=== PATIENT | female | born 1960 | race Caucasian/White ===

== ENCOUNTER → 2021-06-03 | Outpatient (CLI) | payer SELFPAY ==
[~2021-06-03] MED LIST: CYCL10 PO; HYDACE5325 PO; HYDR1TAB94 PO
[2021-06-03 12:54] LABS: BASOPHILS ABSOLUTE AUTO 0.05 K/mm3 (0.00-0.23); BASOPHILS PERCENT AUTO 1 % (0-2); EOSINOPHILS ABSOLUTE AUTO 0.08 K/mm3 (0.00-0.68); EOSINOPHILS PERCENT AUTO 1 % (0-6); Hematocrit 49.4 % (33.0-51.0); Hemoglobin 16.5 g/dL (11.5-16.0); IMMATURE GRAN ABSOLUTE AUTO 0.03 K/mm3 (0.00-0.10); IMMATURE GRAN PERCENT AUTO 0 % (0-1); LYMPHOCYTES ABSOLUTE AUTO 2.34 K/mm3 (0.84-5.20); LYMPHOCYTES PERCENT AUTO 29 % (21-46); MONOCYTES ABSOLUTE AUTO 0.49 K/mm3 (0.16-1.47); MONOCYTES PERCENT AUTO 6 % (4-13); Mean Corpuscular HGB 29.6 pg (26.0-34.0); Mean Corpuscular HGB Conc 33.4 g/dL (31.5-36.5); Mean Corpuscular Volume 89 fL (80-100); Mean Platelet Volume 11.8 fL (9.1-12.4); NEUTROPHILS ABSOLUTE AUTO 5.06 K/mm3 (1.96-9.15); NEUTROPHILS PERCENT AUTO 63 % (41-73); Platelet Count 183 K/mm3 (150-400); RDW Coefficient Variation 12.6 % (11.7-14.2); Red Blood Cell Count 5.58 M/mm3 (3.80-5.20); White Blood Cell Count 8.05 K/mm3 (4.00-11.30)
[2021-06-03 13:19] LABS: Alanine Aminotransfer (ALT/SGP 24 U/L (12-78); Albumin, Blood 2.5 g/dL (3.4-5.0); Albumin/Globulin Ratio 0.7 (0.8-1.8); Alk Phos 130 U/L (40-126); Anion Gap 7 mmol/L (6-16); Aspartate Aminotrans (AST/SGOT 14 U/L (12-37); Bilirubin, Total 0.3 mg/dL (0.1-1.0); Blood Urea Nitrogen 19 mg/dL (8-24); Bun/Creatinine Ratio 27.5 (12.0-20.0); CO2, Blood 29 mmol/L (21-32); Calcium, Blood 8.4 mg/dL (8.5-10.1); Chloride, Blood 102 mmol/L (98-108); Creatinine, Blood 0.69 mg/dL (0.40-1.00); Globulin, Blood 3.4 g/dL (2.2-4.0); Glomerular Filtration Rate >60 (60-); Glucose, Blood 467 mg/dL (70-99); Potassium, Blood 4.4 mmol/L (3.5-5.5); Sodium, Blood 138 mmol/L (136-145); Total Protein, Blood 5.9 g/dL (6.4-8.2)
[2021-06-03 13:24] LABS: International Normalized Ratio 0.91; Prothrombin Time Results 9.6 Sec (9.7-11.5)
== END | disposition home or self-care (01) ==
LOC: LAB SHORT 12:49
PROVIDERS: Physician Assistant
DX: D75.1 Secondary polycythemia (principal); R60.0 Localized edema; E11.9 Type 2 diabetes mellitus without complications
CPT/HCPCS: 80053; 83036; 85025; 85060; 85610

== ENCOUNTER 2021-07-17 12:54 | Emergency (ER) | payer SELFPAY ==
[~2021-07-17] VITALS: Ht 152.4 cm; Wt 81.7 kg
[2021-07-17 13:21] LABS: BASOPHILS ABSOLUTE AUTO 0.04 K/mm3 (0.00-0.23); BASOPHILS PERCENT AUTO 0 % (0-2); EOSINOPHILS ABSOLUTE AUTO 0.02 K/mm3 (0.00-0.68); EOSINOPHILS PERCENT AUTO 0 % (0-6); Hemoglobin 14.1 g/dL (11.5-16.0); IMMATURE GRAN ABSOLUTE AUTO 0.07 K/mm3 (0.00-0.10); IMMATURE GRAN PERCENT AUTO 0 % (0-1); LYMPHOCYTES ABSOLUTE AUTO 2.28 K/mm3 (0.84-5.20); LYMPHOCYTES PERCENT AUTO 14 % (21-46); MONOCYTES ABSOLUTE AUTO 0.83 K/mm3 (0.16-1.47); MONOCYTES PERCENT AUTO 5 % (4-13); Mean Corpuscular HGB 29.7 pg (26.0-34.0); Mean Corpuscular HGB Conc 32.8 g/dL (31.5-36.5); Mean Corpuscular Volume 91 fL (80-100); NEUTROPHILS PERCENT AUTO 80 % (41-73); Platelet Count 219 K/mm3 (150-400); RDW Coefficient Variation 12.7 % (11.7-14.2); RDW Standard Deviation 41.8 fL (35.1-46.3); Red Blood Cell Count 4.75 M/mm3 (3.80-5.20); White Blood Cell Count 16.04 K/mm3 (4.00-11.30)
[2021-07-17 13:29] LABS: Alanine Aminotransfer (ALT/SGP 16 U/L (12-78); Albumin, Blood 2.3 g/dL (3.4-5.0); Albumin/Globulin Ratio 0.5 (0.8-1.8); Alk Phos 129 U/L (50-136); Anion Gap 5 mmol/L (6-16); Aspartate Aminotrans (AST/SGOT 10 U/L (12-37); Bilirubin, Total 0.2 mg/dL (0.1-1.0); Blood Urea Nitrogen 33 mg/dL (8-24); Bun/Creatinine Ratio 44.5 (12.0-20.0); CO2, Blood 25 mmol/L (21-32); Calcium, Blood 9.5 mg/dL (8.5-10.1); Chloride, Blood 107 mmol/L (98-108); Creatinine, Blood 0.74 mg/dL (0.40-1.00); Globulin, Blood 4.2 g/dL (2.2-4.0); Glomerular Filtration Rate >60 (60-); Glucose, Blood 317 mg/dL (70-99); Potassium, Blood 5.1 mmol/L (3.5-5.5); Sodium, Blood 137 mmol/L (136-145); Total Protein, Blood 6.5 g/dL (6.4-8.2)
[2021-07-17 14:20] LABS: Source, Urine Clean Catch
[2021-07-17 14:32] LABS: Bilirubin, Urine Neg (Neg); Blood, Urine 1+ (Neg); Color, Urine Yellow (P-Yellow); Glucose Qualitative, Urine 4+ (Neg); Ketones, Urine Neg (Neg); Leukocyte Esterase, Urine Neg (Neg); Nitrite, Urine Neg (Neg); Protein, Urine 4+ (Neg); Specific Gravity, Urine 1.015 (1.003-1.022); Urobilinogen, Urine NORM (Normal)
[2021-07-17 14:42] LABS: Appearance, Urine Hazy (Clear)
[2021-07-17 14:47] LABS: Bacteria Few /hpf; Hyaline Casts 0-2 /lpf (0-2); Squamous Epithelial Cells Mod /hpf (Few); White Blood Cells, Urine 0-2 /hpf (0-5)
[2021-07-17 15:09] LABS: International Normalized Ratio 0.93; Prothrombin Time Results 9.8 Sec (9.7-11.5)
== END 2021-07-17 16:24 | disposition home or self-care (01) ==
LOC: ER 12:54
PROVIDERS: Emergency Medicine
DX: R41.82 Altered mental status, unspecified (principal); I73.9 Peripheral vascular disease, unspecified; Z91.030 Bee allergy status; Z88.0 Allergy status to penicillin; Z88.5 Allergy status to narcotic agent; Z88.6 Allergy status to analgesic agent
CPT/HCPCS: 70450; 71045; 80053; 81001; 85025; 85610; 85730; 99285-25

== ENCOUNTER 2021-07-25 10:30 | Inpatient (IN) | payer SELFPAY ==
[~2021-07-25] VITALS: Ht 154.9 cm; Wt 79.9 kg
[2021-07-25] MEDS ORDERED: METFORMIN HCL500 M3 PO (12:27)
[2021-07-25 13:02] LABS: BASOPHILS ABSOLUTE AUTO 0.04 K/mm3 (0.00-0.23); BASOPHILS PERCENT AUTO 0 % (0-2); EOSINOPHILS ABSOLUTE AUTO 0.07 K/mm3 (0.00-0.68); EOSINOPHILS PERCENT AUTO 1 % (0-6); Hematocrit 41.5 % (33.0-51.0); Hemoglobin 13.3 g/dL (11.5-16.0); IMMATURE GRAN ABSOLUTE AUTO 0.06 K/mm3 (0.00-0.10); IMMATURE GRAN PERCENT AUTO 1 % (0-1); LYMPHOCYTES ABSOLUTE AUTO 3.25 K/mm3 (0.84-5.20); LYMPHOCYTES PERCENT AUTO 24 % (21-46); MONOCYTES ABSOLUTE AUTO 0.69 K/mm3 (0.16-1.47); MONOCYTES PERCENT AUTO 5 % (4-13); Mean Corpuscular HGB 29.4 pg (26.0-34.0); Mean Corpuscular Volume 92 fL (80-100); Mean Platelet Volume 11.4 fL (9.1-12.4); NEUTROPHILS ABSOLUTE AUTO 9.19 K/mm3 (1.96-9.15); NEUTROPHILS PERCENT AUTO 69 % (41-73); Platelet Count 263 K/mm3 (150-400); RDW Coefficient Variation 12.3 % (11.7-14.2); RDW Standard Deviation 41.1 fL (35.1-46.3); Red Blood Cell Count 4.52 M/mm3 (3.80-5.20)
[2021-07-25 13:18] LABS: Alanine Aminotransfer (ALT/SGP 16 U/L (12-78); Albumin, Blood 2.2 g/dL (3.4-5.0); Albumin/Globulin Ratio 0.4 (0.8-1.8); Alk Phos 143 U/L (50-136); Anion Gap 5 mmol/L (6-16); Aspartate Aminotrans (AST/SGOT 8 U/L (12-37); Bilirubin, Total 0.2 mg/dL (0.1-1.0); Blood Urea Nitrogen 15 mg/dL (8-24); Bun/Creatinine Ratio 37.1 (12.0-20.0); CO2, Blood 25 mmol/L (21-32); Calcium, Blood 8.4 mg/dL (8.5-10.1); Chloride, Blood 108 mmol/L (98-108); Globulin, Blood 4.9 g/dL (2.2-4.0); Glomerular Filtration Rate >60 (60-); Glucose, Blood 183 mg/dL (70-99); Potassium, Blood 4.3 mmol/L (3.5-5.5); Sodium, Blood 138 mmol/L (136-145); Total Protein, Blood 7.1 g/dL (6.4-8.2)
[2021-07-25 13:19] LABS: Anti-Xa UFH, PHA Monitoring <0.10 IU/mL; International Normalized Ratio 0.95
--- NOTE | 2021-07-25 21:42 | NUR ---
Pt admitted from ED around 2029. Heparin gtt restarted per orders. Pt kept NPO. Consult called to Dr. Tesfaye answering service, from Dr. Nieto note, it looks like he had already spoke to him while pt was in ED and noted that Dr. Landon would conult in AM, see note. Information for consult called into Dr. Tesfaye answering service. VSS on RA. Tele: SR 70s. Skin: Left 5th toe is completely black. Left great toe is purple towards the distal end. Top half of foot has patchy purple/reddish coloring. Pt reports pain in top half of foot, especially in the 5th and great toe.
--- NOTE | 2021-07-25 22:20 | NUR ---
Pictures taken of left foot and placed in chart.
--- NOTE | 2021-07-26 00:06 | NUR ---
Pulses in left foot are faint with palpation, but are strong with doppler. Right foot has moderatly strong pulses by palpation.
--- NOTE | 2021-07-26 00:14 | NUR ---
Pt was placed on 2L oxygen due to desaturations into mid-high 80s while sleeping. Pt sustaining 92-94% on 2L. Continuous pulse ox placed.
--- NOTE | 2021-07-26 01:34 | NUR ---
Pt has been having severe 10/10 pain in left 5th toe, prn fentynl given total of 50mcg, pt is sleeping at this time, RR 14 and Oxygen 94% on 2L.
--- NOTE | 2021-07-26 04:25 | NUR ---
Pt in 10/10 pain in left foot, PRN fentynl given and pt fell asleep after dose.
--- NOTE | 2021-07-26 04:36 | NUR ---
Bobbin Winder Tender Note: Pt is A&O, pleasant with care. Anxious and nervous about diagnosis. VSS on RA-2L. Pt was started on 2L overnight due to desaturation. Pt had 10/10 pain with shock/sharp waves through left foot and 5th toe, prn norco and fentanyl given per orders. Fentanyl works well temporarily, but pain seems to come back quickly. [place] doesn't touch pain at all. Dr. Oscar was consulted by Dr. Nieto in ED and I also called the after hours service. NS running 75/mlhr. Heparin gtt running 18unit/kg/hr. Pt has been NPO overnight. CBG checked Q6. Tele: SR 70s. Skin: pictures taken. Left 5th toe is completely black. Great toe is starting to become black at the tip. Scattered splouchy redness on the upper part of left foot.
--- NOTE | 2021-07-26 05:15 | NUR ---
Pt was still in 10/10 pain 45 minutes after fentanyl, Dr. Harry notified. Pain medication order changed to dilaudid 1mg Q2hrs. Pt was able to fall asleep after first dose of dilaudid.
--- NOTE | 2021-07-26 07:20 | NUR ---
INITIAL ASSESSMENT: Patient is awake sitting up in bed. She is alert and oriented. She reports shooting pain from the top of her left foot down her pinky toe, she rates the pain at a 10/10, she is medicated with dilaudid at this time. HRR, SB in the 50s. LS CTA, Biox mid 90s on 2L via NC. BT+. VSS. PPP. Patients Left foot is dusky with her left pinky toe black, the tops of her big toe and the second and third toes are also a dark purple. Pulses to LLE via doppler. Dusky area to left foot traced. Dr. Plasencia is at the bedside. He talked with the patient about smoking cessation. He will follow up and plan an intervention after Dr. Landon has been to see the patient. Pt has Hep GTT infusing at this time. 3,000 unit bolus given and rate increased to 22units/kg/hr. Son in law at bedside. Patient denies other needs at this time. Call light in reach. Will continue to monitor.
--- NOTE | 2021-07-26 09:50 | NUR ---
Update: Dr. Bradford has been to see the patient, see new orders. She was medicated with [place] and Neurontin. She is resting with her eyes closed at this time. Call light in reach, will continue to monitor.
--- NOTE | 2021-07-26 12:30 | NUR ---
Update: Assessment unchanged. VSS. At times patient is yelling out due to pain. Pain has been well controlled with [place] and Dilaudid. She was also given one dose of neurontin-which seemed to help, she was able to rest afterward. Son in law at bedside. Patient denies other needs at this time. Call light in reach, [facility].
--- NOTE | 2021-07-26 13:00 | NUR ---
Update: Kieran Landon's PA has been to see the patient, plan to take the patient to the hoisting laborer, he will call back later with an updated time. Patient denies other needs at this time. Call juan j in kathryn NIKOLAI.
--- NOTE | 2021-07-26 16:35 | NUR ---
Patient is lying in bed and immediately states that she is in pain and is waiting for her next dose of pain medications. Pt's SinL, Javier is bedside and is kind and talks for her when the pain is to difficult for her to talk through the pain. Pt talks about her [employer] ita, the closeness of her family and the plan of care for her blot clots and gangernous toe. I provide prayer and a calming presence. Pt responds well and voices appreciation for the visit. I will continue to remain available to pt and family.
--- NOTE | 2021-07-26 17:50 | NUR ---
SUMMARY: Patient has been alert and oriented x4 T/O my shift. He has been C/O back and abdominal pain-he was medicated with Dilaudid twice this shift and once with [place] wtih good relief. HR has been SR in the 80s-90s for the majority of the shift. He had a brief period around [id number] he went into a-flutter, rate was in the 90s and patient was asymptomatic. His blood pressure was stable for the majority of the shift, he had an episode while standing this afternoon, he was was not responding. Staff promptly had the patient sit back down and SBP was in the 80s, Dr. Villafana was notified. Blood pressure improved after lying back down, he also had a dose of Albumin and Bumex. SBP now in the 130s. LS have been DIM in the bases for the entire shift. The patient started out on 4L O2 via NC and at one point he was up to 11L this afternoon. After sitting on the edge of the bed and doing some deep breathing, this RN was able to titrate his oxygen gradually back down to 8L via Oximizer. BT were active at the beginning of the shift and patient was able to get OOB to the bathroom to have a small loose green BM. However this afternoon his ABD began to become more distended and patient became more uncomfortable. He was assisted to stand and march in place in attempts to help him pass flatus, he was able to belch. He was medicated once for nausea. Dr. Bradford made him NPO this afternoon and stated if the patient began to vomit staff can place an NGT for stomach decompression. Patient has worsening renal function, he has not been ableto void. AM bladder scan was 7cc, bladder scan this evening shows 267, currrently patient is being assisted to the BSC to have BM and void. Pt was medicated with Bumex at the end of the shift. Will follow up with Dr. Guerra. Consult placed for Dr. Landon for permacath placement, pt will likely need dialysis. H/H has been dropping as are his platelets-hep gtt stopped, Dr. Bradford may start the patient on Eliquis tomorrow for the patients history of A-Fib.
--- NOTE | 2021-07-26 18:16 | NUR ---
SUMMARY: Patient has been alert and oriented T/O the shift. HRR, SR in the 70s, she can be so at times down into the 50s while asleep. Blood pressure has been 150s systocially. LS DIM, at times they are coarse-but cleared with cough. She is a 1/2PPD smoker and hasn't smoked since admission. Biox has been above 90% on 2L T/O the shift. BT+. PPP. Left foot is dusky and cool to the touch, she has a marbling discoloration to the top and bottom of her left foot, it has stayed within the markings T/O the shift. The coloring of the foot has darkened slightly. Pulses remain good via doppler. Left pinky toe is black. The patient is starting to have some black discoloration to the top of her big toe and a dark purple to the top of her 2nd and 3rd toes. Dr. Plasencia came to see the patient today, he will make a plan after IR comes to see the patient and perform a revasc on the LLE. IR HEATHER came to see the patient today, pt is NPO after midnight with plans to go to laborer for a revasc in the AM. She has had Hep gtt infusing T/O the shift, with two boluses given and two rate increases. She had C/O 10/10 pain in her left pinky toe-she was medicated with [place] and Dilaudid with good pain relief. Patient is resting comfortably at this time. Will report to oncoming RN.
--- NOTE | 2021-07-26 20:46 | NUR ---
Assumed care 1900. VSS on 2L. Pain in left foot and 5th toe, prn dilaudid given. RR 11-13, watching RR closely. Left 5th toe completely black, the top half of the left foot is red/maroon splotchy. Pt is elevating and repositioning frequently to get more comfortable. New scheduled dose of gabapentin given per orders.
[2021-07-27 04:37] LABS: Hematocrit 39.4 % (33.0-51.0); Hemoglobin 12.2 g/dL (11.5-16.0); Mean Platelet Volume 11.7 fL (9.1-12.4); Platelet Count 226 K/mm3 (150-400)
--- NOTE | 2021-07-27 05:03 | NUR ---
Manager Laundry Note: Pt is A&O, anxious. Pain in left foot/ 5th toe mostly throughout night 10/10 pain with sharp/ shocking like sensation, prn meds given per orders. RR slowed to 10-12, spaced out prn meds a bit more. Pt didn't sleep much throughout night due to pain. VSS on 2-4L. Heparin gtt running, dose was increased and bolus given overnight. Pt has been NPO since midnight for revascularization today. Left foot has weak pulses palpated, but can hear well with doppler. Left 5th toe completely black and tip of great toe has some darker maroon coloring to it. IV abx given per orders.
--- NOTE | 2021-07-27 07:55 | NUR ---
Initial Assessment: Pt getting up to recliner chair. Pt C/O 10/10 pain to the L foot. L foot with purplish discoloration up mid-foot. L 5th toe black in color, L great Toe with tip purple in color. Pulse found with doppler. Pt NPO for revasc procudure scheduled today. LS diminished and coarse in bases. HR reg. BT positive. Pt states that she is passing flatus without issues. Will medicate pt for pain and will continue to monitor.
--- NOTE | 2021-07-27 15:02 | NUR ---
Pt take to [facility] for procedure. Will await return.
--- NOTE | 2021-07-27 16:36 | NUR ---
Update: Pt returned to room after revasc. R groin site with Teg CHG dressing intact. No bleeding, oozing, swelling or hematoma noted. L foot wtih weak palp pulses. R foot with increased warmth. Pt states pain is much improved since procedure. Pt is dozing off and on, requiring 6L per NC. HR shows NSR. Heprin gtt restarted. Stable at this time. Will monitor.
--- NOTE | 2021-07-27 17:57 | NUR ---
SHIFT SUMMARY: Pt laying flat in bed. Requiring frequent reminding to remain flat with R leg straight. BP elevated after return from procedure. Orders obtained. Will follow through. Pt appears more comfortable after procedure and states that her R foot pain has improved slightly. Pulses to L foot palp and discoloration seems to have improved slightly. L 5th toe still black and tip of great toe still purple in color. R groin site with no bleeding, oozing or swelling noted. Heprin gtt running per pharmacy. No other changes at this time. Will monitor and report to night RN.
--- NOTE | 2021-07-27 20:06 | NUR ---
Assumed care 1900. Pt sleeping intermittently. Pt is having a hard time remembering groin site precautions, keep rolling and bending leg. Frequent reminders to lay flat with leg straight. BP elevated, but does not meet prn parameters. Groin site looks good, clean dry and intact with no signs of bleeding. There is an angioseal that was placed during revasc. Left foot has better color today and pulses are felt more easily. Left 5th toe is black and tip of great toe is also black. Will continue to monitor.
--- NOTE | 2021-07-28 04:40 | NUR ---
Cattle Shipper note: Pt is oriented. She would sleep on and off. Mainly moaned when awake in pain. When pt got pain meds she would go to sleep for a few hours. PRN norco and dilaudid given per orders. VSS on 4L, pt desats pretty quickly without oxygen on. Nonproductive cough that pt states she has at baseline. Left foot has weak, but palpated pulses, strong with doppler. Right leg has good pulses. Right groin site has remained free from hematoma and clean dry and intact dressing. Pt had a hard time remembering precautions of laying flat and not bending leg, but luckily no hematoma formed even with pt not following precations well. Left 5th toe is black, tip of great toe is starting to get darker, more of a purple/maroon color. Skin has scratches from pt itching on legs and back.
--- NOTE | 2021-07-28 04:45 | NUR ---
Pt has been NPO since midnight for possible surgical procedure on foot today.
[2021-07-28 05:25] LABS: BASOPHILS ABSOLUTE AUTO 0.02 K/mm3 (0.00-0.23); BASOPHILS PERCENT AUTO 0 % (0-2); EOSINOPHILS ABSOLUTE AUTO 0.02 K/mm3 (0.00-0.68); EOSINOPHILS PERCENT AUTO 0 % (0-6); Hematocrit 35.7 % (33.0-51.0); IMMATURE GRAN ABSOLUTE AUTO 0.04 K/mm3 (0.00-0.10); IMMATURE GRAN PERCENT AUTO 0 % (0-1); LYMPHOCYTES ABSOLUTE AUTO 2.05 K/mm3 (0.84-5.20); LYMPHOCYTES PERCENT AUTO 18 % (21-46); MONOCYTES ABSOLUTE AUTO 0.99 K/mm3 (0.16-1.47); MONOCYTES PERCENT AUTO 9 % (4-13); Mean Corpuscular HGB 28.6 pg (26.0-34.0); Mean Corpuscular HGB Conc 30.8 g/dL (31.5-36.5); Mean Corpuscular Volume 93 fL (80-100); Mean Platelet Volume 11.3 fL (9.1-12.4); NEUTROPHILS ABSOLUTE AUTO 8.36 K/mm3 (1.96-9.15); NEUTROPHILS PERCENT AUTO 73 % (41-73); Platelet Count 218 K/mm3 (150-400); RDW Coefficient Variation 12.2 % (11.7-14.2); RDW Standard Deviation 41.8 fL (35.1-46.3); Red Blood Cell Count 3.85 M/mm3 (3.80-5.20); White Blood Cell Count 11.48 K/mm3 (4.00-11.30)
[2021-07-28 05:57] LABS: Alanine Aminotransfer (ALT/SGP 16 U/L (12-78); Albumin/Globulin Ratio 0.5 (0.8-1.8); Alk Phos 157 U/L (50-136); Anion Gap 6 mmol/L (6-16); Aspartate Aminotrans (AST/SGOT 16 U/L (12-37); Bilirubin, Total 0.4 mg/dL (0.1-1.0); Blood Urea Nitrogen 14 mg/dL (8-24); CO2, Blood 25 mmol/L (21-32); Calcium, Blood 8.2 mg/dL (8.5-10.1); Chloride, Blood 109 mmol/L (98-108); Creatinine, Blood 0.37 mg/dL (0.40-1.00); Globulin, Blood 4.2 g/dL (2.2-4.0); Glomerular Filtration Rate >60 (60-); Glucose, Blood 108 mg/dL (70-99); Phosphorus, Blood 2.7 mg/dL (2.5-4.9); Potassium, Blood 4.1 mmol/L (3.5-5.5); Sodium, Blood 140 mmol/L (136-145); Total Protein, Blood 6.2 g/dL (6.4-8.2)
--- NOTE | 2021-07-28 17:21 | NUR ---
ASSUMED CARE OF PT AT 0700 TODAY. PT STATES HER LEFT FOOT IS VERY PAINFUL T/O THE DAY, PT IS OFTEN OBSERVED BY THIS RN YELLING OUT IN PAIN AND CONTINUALLY MOVING AROUND IN BED. THIS BEHAVIOR APPEARED TO BE WORSE WHEN PT'S FAMILY MEMBERS WERE IN THE ROOM WITH HER. PT MEDICATED W IV/PO PAIN MEDICATION PER MD ORDERS AND WOULD CONTINUE TO EXHIBIT THESE BEHAVIORS, EVEN WHILE SHE APPEARED TO BE FALLING ASLEEP POST PAIN MEDICATION ADMINSITRATION. CASE MANAGEMENT INVOLVED WITH DISCHARGE PLANNING. PT DOES NOT HAVE INSURANCE AND WILL LIKELY NEED HOME HEALTH AND HOME 02. THIS RN DISCUSSED W DR YORK TRANSITIONING PT TO ORAL PAIN CONTROL IN ANTICIPATION OF DISCHARGE TOMORROW. HEPARIN GTT TRANSITIONED TO PO XARELTO TODAY, SAMPLES TO BE SENT HOME WITH PT. NO ACUTE EVENTS, SEE DOCUMENTED ASSESSMENTS AND VS. CALL LIGHT IN REACH AND BED ALARM ON, WILL CONTINUE TO MONITOR AND GIVE REPORT TO ONCOMING SHIFT RN.
--- NOTE | 2021-07-28 21:06 | NUR ---
FALL 2039 - THIS RN WALKING PAST ROOM. BED ALARM SETS OFF. PT FALLS TO KNEES RN ENTERS ROOM. PT ON ALL FOURS UPON ENTERING ROOM. PT LAUGHING. PT STANDS WITHOUT ASSISTANCE AND GETS BACK INTO BED. PT WAS ATTEMPTING TO CHANGE ATTENDS. PT ASSISTED WITH THIS. VITAL SIGNS OBTAINED, NO CHANGES. PT DENIES HITTING ANY OTHER BODY PART EXCEPT HANDS AND KNEES. FULL BODY ASSESMENT COMPLETED, NO CHANGES FROM PREVIOUS ASSESMENT. DR STAPLES CALLED, UPDATED, NO NEW ORDERS. CONTINUE TO MONITOR.
[2021-07-29 04:08] LABS: BASOPHILS ABSOLUTE AUTO 0.01 K/mm3 (0.00-0.23); BASOPHILS PERCENT AUTO 0 % (0-2); EOSINOPHILS ABSOLUTE AUTO 0.06 K/mm3 (0.00-0.68); EOSINOPHILS PERCENT AUTO 1 % (0-6); Hemoglobin 11.2 g/dL (11.5-16.0); IMMATURE GRAN ABSOLUTE AUTO 0.04 K/mm3 (0.00-0.10); IMMATURE GRAN PERCENT AUTO 0 % (0-1); LYMPHOCYTES ABSOLUTE AUTO 2.37 K/mm3 (0.84-5.20); LYMPHOCYTES PERCENT AUTO 22 % (21-46); MONOCYTES ABSOLUTE AUTO 1.43 K/mm3 (0.16-1.47); MONOCYTES PERCENT AUTO 13 % (4-13); Mean Corpuscular HGB 29.6 pg (26.0-34.0); Mean Corpuscular Volume 93 fL (80-100); Mean Platelet Volume 11.6 fL (9.1-12.4); NEUTROPHILS ABSOLUTE AUTO 6.85 K/mm3 (1.96-9.15); NEUTROPHILS PERCENT AUTO 64 % (41-73); Platelet Count 224 K/mm3 (150-400); RDW Coefficient Variation 12.2 % (11.7-14.2); RDW Standard Deviation 41.3 fL (35.1-46.3); Red Blood Cell Count 3.78 M/mm3 (3.80-5.20); White Blood Cell Count 10.76 K/mm3 (4.00-11.30)
--- NOTE | 2021-07-29 05:07 | NUR ---
SHIFT SUMMARY NO ACUTE CHANGES THIS SHIFT. PT AXO. IN SR. HTN AT BEGINNING OF SHIFT BUT WITH PAIN BETTER CONTROLLED, NORMOTENSIVE. PT ON 2LNC, SPO2 >90%. L FOOT DRESSING CDI. PULSES PALPABLE. PAIN OUT OF PROPORTION AT BEGINNING OF ASHIFT, NOW WITHIN. PT HAD FALL THIS SHFIT, SEE NOTD. NO CHANGES POST EVENT. OTHERWISE, PT RESTING OTHERWISE. BED ALARM IN PLACE.
[2021-07-29] MEDS ORDERED: ATOR40TA PO (07:43)
[2021-07-29] MEDS ORDERED: GABA300 PO (07:45)
[2021-07-29] MEDS ORDERED: Nicoderm Cq1 EAC1 TOP (07:59)
[2021-07-29] MEDS ORDERED: CLIN150 PO (08:00)
[2021-07-29] MEDS ORDERED: XARELTO10 M3 PO (08:00)
[2021-07-29] MEDS ORDERED: Plavix75 MG PO (08:00)
--- NOTE | 2021-07-29 10:45 | NUR ---
DISCHARGE TEACHING REVIEWED W PT AND FAMILY MEMEBER INCLUDING FOLLOW UP APPOINTMENTS, MEDICATION LIST AND EDUCATION. PT/FAMILY MEMBER VERBALIZE UNDERSTANDING AND HAVE NO QUESTIONS OR CONCERNS. L FOOT IS WRAPPED IN DRY GAUZE AND OSVALDO WRAP PER ADJUNCT PROFESSOR OF VOICE ORDERS, POST-OP SHOE PLACED. PT/FAMILY MEMBER INSTRUCTED ON WOUND CARE AND S/SX OF INFECTION TO WATCH FOR, THEY VERBALIZE UNDERSTANDING AND HAVE NO QUESTIONS AT THIS TIME. ALL BELONGINS SENT WITH PT INCLUDING SAMPLE XARELTO, EXTRA DRESSING SUPPLIES AND ALL DISCHARGE EDUCATION MATERIAL. PLAN FOR O2 TO BE DELIVERED TO HOME AND HOME HEALTH FOLLOW UP. NO FURTHER NEEDS IDENTIFIED AT THIS TIME.
== END 2021-07-29 11:00 | disposition home or self-care (01) | DRG 253 ==
LOC: ER 10:30 → PCU 21:02
PROVIDERS: Family Medicine; Physician Assistant; ADMIT Internal Medicine
PROC: 047L35Z Dilation of Left Femoral Artery with Two Drug-eluting Intraluminal Devices, Percutaneous Approach (ICD-10-PCS; principal; 2021-07-27)
DX: E11.52 Type 2 diabetes mellitus with diabetic peripheral angiopathy with gangrene (principal); I96 Gangrene, not elsewhere classified; F17.210 Nicotine dependence, cigarettes, uncomplicated; Z71.6 Tobacco abuse counseling; Z85.42 Personal history of malignant neoplasm of other parts of uterus; Z85.3 Personal history of malignant neoplasm of breast; Z88.0 Allergy status to penicillin; Z88.5 Allergy status to narcotic agent; Z91.038 Other insect allergy status; Z88.8 Allergy status to other drugs, medicaments and biological substances; Z79.84 Long term (current) use of oral hypoglycemic drugs
CPT/HCPCS: 36415; 37226; 73620; 75625; 75635; 75716; 75774; 76937; 80053; 82947; 83735; 83880; 84100; 85014; 85018; 85025; 85049; 85520; 85610; 85730; 93306; 93926; 94760; 94762; 96365; 96366; 96375; 96376; 99152; 99153; 99285-25; A9270; C1725; C1760; C1769; C1874; C1887; C1894; C2623; J0690; J1170; J1644; J2250; J2270; J2405; J3010; J7030; J7040; Q9967

== ENCOUNTER 2021-08-23 10:46 | Inpatient (IN) | payer OTHER ==
[~2021-08-23] VITALS: Ht 165.1 cm; Wt 80.1 kg
[~2021-08-23 10:46] MED LIST changes: +ATOR40TA PO; +CLIN150 PO; +GABA300 PO; +METFORMIN HCL500 M3 PO; +Nicoderm Cq1 EAC1 TOP; +Plavix75 MG PO; +XARELTO10 M3 PO
[2021-08-23] MEDS ORDERED: SULFAMETHOXAZO1 EAC1 PO (11:59)
--- NOTE | 2021-08-23 13:12 | NUR ---
PATIENT'S SURGERY CANCELLED TODAY PER DR FALCON, FROM ANESTHESIA DEPARTMENT. TO TO STAY THE NIGHT WITH PLAN FOR SURGERY TOMORROW. NURSING SUPERVIOSR CALLED TO COORDINATE ADMISSION.
--- NOTE | 2021-08-23 13:39 | NUR ---
DR. YORK, HOSPITALIST, AT BEDSIDE IN DAY SURGERY, CONSULTING PATIENT.
--- NOTE | 2021-08-23 14:10 | NUR ---
PATIENT TRANSFERED TO SURGICAL FOOR VIA GURNEY. PATIENT WAS IN DAY SURGERY FROM [id number] TODAY. REPORT GIVEN TO AURORA GHOTRA RN.
[2021-08-23 14:20] LABS: BASOPHILS ABSOLUTE AUTO 0.05 K/mm3 (0.00-0.23); BASOPHILS PERCENT AUTO 1 % (0-2); EOSINOPHILS ABSOLUTE AUTO 0.09 K/mm3 (0.00-0.68); EOSINOPHILS PERCENT AUTO 1 % (0-6); Hematocrit 42.7 % (33.0-51.0); Hemoglobin 13.8 g/dL (11.5-16.0); IMMATURE GRAN ABSOLUTE AUTO 0.04 K/mm3 (0.00-0.10); IMMATURE GRAN PERCENT AUTO 0 % (0-1); LYMPHOCYTES ABSOLUTE AUTO 3.02 K/mm3 (0.84-5.20); LYMPHOCYTES PERCENT AUTO 31 % (21-46); MONOCYTES ABSOLUTE AUTO 0.63 K/mm3 (0.16-1.47); MONOCYTES PERCENT AUTO 6 % (4-13); Mean Corpuscular HGB 28.8 pg (26.0-34.0); Mean Corpuscular HGB Conc 32.3 g/dL (31.5-36.5); Mean Corpuscular Volume 89 fL (80-100); Mean Platelet Volume 11.3 fL (9.1-12.4); NEUTROPHILS ABSOLUTE AUTO 6.01 K/mm3 (1.96-9.15); NEUTROPHILS PERCENT AUTO 61 % (41-73); Platelet Count 236 K/mm3 (150-400); RDW Coefficient Variation 12.4 % (11.7-14.2); RDW Standard Deviation 41.3 fL (35.1-46.3); Red Blood Cell Count 4.79 M/mm3 (3.80-5.20); White Blood Cell Count 9.84 K/mm3 (4.00-11.30)
[2021-08-23 14:45] LABS: Albumin, Blood 2.3 g/dL (3.4-5.0); Anion Gap 6 mmol/L (6-16); Blood Urea Nitrogen 12 mg/dL (8-24); Bun/Creatinine Ratio 28.6 (12.0-20.0); CO2, Blood 26 mmol/L (21-32); Chloride, Blood 107 mmol/L (98-108); Creatinine, Blood 0.42 mg/dL (0.40-1.00); Glomerular Filtration Rate 111 (60-); Glucose, Blood 312 mg/dL (70-99); Magnesium, Blood 1.9 mg/dL (1.6-2.4); Phosphorus, Blood 3.6 mg/dL (2.5-4.9); Potassium, Blood 4.1 mmol/L (3.5-5.5); Sodium, Blood 139 mmol/L (136-145)
--- NOTE | 2021-08-23 15:47 | NUR ---
SHIFT SUMMARY/NOTE: PATIENT CAME BACK FROM PACU TODAY 08/23/21 AT 1400. SURGERY IS BEING POSTPONED TO TOMORROW DUE TO HIGH BLOOD SUGAR. PATIENT IS A&OX4. VS ARE WNL AND IS ON RA BUT WILL NEED TO BE ON 2L NC OF OXYGEN FOR BEDTIME SINCE PATIENT REPORTS THAT IS "WHAT I DO AT HOME". PATIENT REFUSES THE NEED FOR PAIN MEDICATIONS AT THIS TIME. LEFT FOOT HAS OSVALDO WRAP AND GAUZE THAT ARE C/D/I. PATIENT IS INDEP. IN THE ROOM. WHEN AMBULATING IN ROOM PATIENT PUTS ON SURGICAL SHOE FOR THE LEFT FOOT AND WEARS NON-SLIP SOCK ON THE OTHER. SHE IS TOLERATING PO INTAKE AND IS VOIDING. CALL LIGHT WITHIN REACH. PATIENT IS LAYING IN BED WATCHING TV. THE PLAN IS TO HAVE SURGERY FOR A TRANSMETATARSAL AMPUTATION WITH DR. PAGE IN THE MORNING. NPO AT MIDNIGHT TONIGHT.
--- NOTE | 2021-08-24 03:49 | NUR ---
PT MADE NPO AT 0000, 08/24
--- NOTE | 2021-08-24 06:08 | NUR ---
PT A&OX4, VSS, PATIENT EMOTIONALLY LABILE BETWEEN CRYING/ANGRY RELATED TO DELAY IN TREATMENT, AND EUPHORIC DURING CONVERSATION AND CARE. PATIENT REPORTED ADEQUATE PAIN CONTROL WITH PO PAIN MEDS PER EMAR, PATIENT AMBULATES TO BATHROOM WITH 1 PERSON ASSIST, REPORTS NORMAL VOIDING PATTERN, NPO AT 0000, 08/24. PATIENT HAS OSVALDO BANDAGE TO LEFT FOOT, WEARS BOOT FROM HOME FOR AMBULATION. REPORTS SLEEPING DURING THE NIGHT, CURRENTLY RESTING IN BED W/ CALL LIGHT IN REACH, WILL MONITOR UNTIL REPORT GIVEN TO ONCOMING SHIFT.
--- NOTE | 2021-08-24 08:26 | NUR ---
SPOKE WITH DR. YORK REGARDING MEDICATIONS. OK TO GIVE FULL 5 UNITS OF GLARGINE, METFORMIN AND HUMALOG PER MEDIUM SLIDING SCALE. DR. YORK IS AWARE PT IS NPO.
--- NOTE | 2021-08-24 12:45 | NUR ---
CONTACTED DR. YORK VIA SPEAKER PHONE WITH Sharon TONG. DISCUSSED PT'S HIGH LEVEL OF PAIN AND ORDERED PO AND IV PAIN MEDS. PT'S PAIN WAS WELL MANAGED WITH THE MEDICATIONS. ALSO DISCUSSED PT'S RECENT BLOOD GLUCOSE AND GAVE THE 2 UNITS OF INSULIN ORDERED, FOR THE BLOOD GLUCOSE READING OF 154.
--- NOTE | 2021-08-24 13:10 | NUR ---
PT TAKEN TO DAY SURGERY NOW BY CARTER FUNES RN. PT WAS GIVEN PRE-OP BATH, MOUTH WASH AND NASAL SWABS PRIOR TO SURGERY. PT WAS A&OX4 AND STATED SHE WAS READY FOR SURGERY.
[2021-08-24 13:13] LABS: Influenza A, PCR NEGATIVE (NEGATIVE); Influenza B, PCR NEGATIVE (NEGATIVE); Resp Syncytial Virus, PCR NEGATIVE (NEGATIVE); SARS-Cov-2 (COVID-19) PCR, MMC NEGATIVE (NEGATIVE)
--- NOTE | 2021-08-24 14:42 | NUR ---
REPORT GIVEN TO MARY GUAN RN.
--- NOTE | 2021-08-24 15:29 | NUR ---
08/24/21 1529 Robbie Hunt PT [facility] PRIOR TO ARRIVAL TO OR.
--- NOTE | 2021-08-24 18:57 | NUR ---
PT ARRIVED ON SURGICAL FLOOR FROM PACU AT 1715. PT HAD A L FOOT TRANSMETATARSAL AMPUTATION. PT IS IN TERRIBLE PAIN, MOANING AND WRITHING. PAIN MEDICATIONS HAVE BEEN GIVEN BY Sharon TONG WITH LITTLE RELIEF. PT HAS WOUND VAC IN PLACE THAT IS MAINTAING SUCTION. NO DRAINAGE HAS BEEN NOTED. PT HAS 3L OXYGEN VIA NC IN PLACE. VSS.
--- NOTE | 2021-08-24 19:11 | NUR ---
SHIFT SUMMARY PT IS POD#0 FOR L TRANSMETATARSAL AMPUTATION. PT HAS BEEN IN SEVERE PAIN SINCE ARRIVING ON THE FLOOR. Sharon TONG HAS ADMINISTERED PAIN MEDIATIONS WITH LITTLE RELEIF AND DOCTOR HAS BEEN CONTACTED. PT HAS WOUND VAC IN PLACE MAINTAINING SUCTION. NO DRAINAGE NOTED. PT IS ON 3L NC. L LEG IS ELEVATED ON TWO PILLOWS AND PT STATED IT HELPED RELIEVE SOME PAIN. VSS. WILL CONTINUE TO MONITOR.
--- NOTE | 2021-08-24 19:38 | NUR ---
ASSESSED PT WHEN SHE ARRIVED BACK ON SURGICAL FLOOR. PT'S LUNGS SOUNDS ARE CLEAR. RESPIRATIONS ARE EVEN AND UNLABORED. L FOOT DRESSING REAMINS C/D/I AND WOUND VAC IS MAINTAING SUCTION. DILAUDID PAIN MEDIATION GIVEN AND PT IS NOW RESTING COMFORTABLY. VSS.
--- NOTE | 2021-08-24 19:51 | NUR ---
SHIFT SUMMARY PT IS POD#1 FROM TRANSMETATARSAL AMPUTATION WITH DR. RAMOS. SHE ARRIVED BACK TO THE UNIT AT APPROXMATELY 1715. UPON ARRIVING TO THE ROOM PT REPORTED ELEVATED PAIN. SHE WAS CRYING OUT AND RESTLESS IN BED. ONLY PO PAIN MEDICATION AVALIABLE, DR. DUMONT CONTACTED FOR IV PAIN MEDICATION AFTER PT WAS ASSESSED. MORPHINE AND NORCO GIVEN, THEY WERE NOT EFFECTIVE. DR. DUMONT NOTIFIED OF CONTINUED ELEVATED PAIN, DILAUDID WAS GIVEN AND IMPROVED PAIN LEVEL. PT HAS A WOUND VAC IN PLACE TO HER L FOOT. PT TOLERATING CLEAR LIQUIDS. REPORT GIVEN TO SHOLA RITCHIE.
--- NOTE | 2021-08-25 04:41 | NUR ---
SHIFT SUMMARY PAIN MANAGEMENT IMPROVED T/O SHIFT. 0.5 MG IV DILAUDID + 1 NORCO FOR PAIN. LEFT FOOT ELEVATED ON PILLOWS. WOUND VAC REMAINS INTACT WITH SCANT SS DRAINAGE NOTED. PT HAS GOOD BED MOBILITY. IVF INFUSING PER ORDERS. ON 2L O2 VIA NC WHILE SLEEPING WITH CONT BIOX IN PLACE. CALL LIGHT WITHIN REACH.
[2021-08-25 05:16] LABS: BASOPHILS ABSOLUTE AUTO 0.02 K/mm3 (0.00-0.23); BASOPHILS PERCENT AUTO 0 % (0-2); EOSINOPHILS PERCENT AUTO 0 % (0-6); Hematocrit 37.8 % (33.0-51.0); Hemoglobin 12.1 g/dL (11.5-16.0); IMMATURE GRAN ABSOLUTE AUTO 0.03 K/mm3 (0.00-0.10); IMMATURE GRAN PERCENT AUTO 0 % (0-1); LYMPHOCYTES ABSOLUTE AUTO 1.84 K/mm3 (0.84-5.20); LYMPHOCYTES PERCENT AUTO 20 % (21-46); MONOCYTES ABSOLUTE AUTO 0.48 K/mm3 (0.16-1.47); MONOCYTES PERCENT AUTO 5 % (4-13); Mean Corpuscular HGB 28.7 pg (26.0-34.0); Mean Corpuscular Volume 90 fL (80-100); Mean Platelet Volume 11.8 fL (9.1-12.4); NEUTROPHILS ABSOLUTE AUTO 7.06 K/mm3 (1.96-9.15); NEUTROPHILS PERCENT AUTO 75 % (41-73); Platelet Count 207 K/mm3 (150-400); RDW Coefficient Variation 12.3 % (11.7-14.2); RDW Standard Deviation 40.4 fL (35.1-46.3); Red Blood Cell Count 4.21 M/mm3 (3.80-5.20); White Blood Cell Count 9.43 K/mm3 (4.00-11.30)
--- NOTE | 2021-08-25 12:28 | NUR ---
Pt. is reclined in bed and welcomes my visit. Pt. is a woman of ita and verbalizes her confidence in God. Explored issues of ita and belief and the pt. verbalized some experiences that have distanced her from the organized faith. Through empathetic listening the Pt. displays evidence of confidence and trust. Establish rapport and facilitate a life review. Prayed for Pt. Pt. verbalizes gratitude for the spiritual care visit.
--- NOTE | 2021-08-25 19:20 | NUR ---
SHIFT SUMMARY POD1 L TMA, A/OX4, VSS, TOLERATING PO, PAIN MANAGED THOUGH INCREAS IN PAIN NOTED AFTER WORKING WITH PHYSICAL THERAPY. NO ACUTE EVENTS THIS SHIFT, CALL [facility] IN REACH, REPORT GIVEN TO SHOLA RITCHIE.
[2021-08-26 01:23] LABS: Vancomycin, Trough 13.4 ug/mL (5.0-10.0)
--- NOTE | 2021-08-26 04:26 | NUR ---
SUMMARY PT SLEPT ON AND OFF T/O THE NIGHT. MEDICATED FOR PAIN PER EMAR WITH GOOD RESULTS THE PATIENT WAS ABLE TO SLEEP AFTER PAIN SUBSIDED. PT AMBULATED TO [place] [facility] [place] 1 PERSON ASSIST W/FWW. WOUND VAC IN PLACE WITH FOAM COMPRESSED, NO LEAKS NOTED. PT REPORTED RELIEF AFTER EPISODE OF EMESIS AT THE BEGINNING OF SHIFT. PT CURRENTLY SLEEPING, IN NO CURRENT DISTRESS, CALL LIGHT IN REACH.
[2021-08-26 10:56] LABS: Creatinine, Blood 0.57 mg/dL (0.40-1.00)
--- NOTE | 2021-08-26 17:59 | NUR ---
SHIFT SUMMARY PT REFUSED TO WORK W/ OT DURING THIS SHIFT, STATING THAT SHE WAS TOO TIRED. PT RESTED IN ROOM T/O THE DURATION OF THE SHIFT. PT ABLE TO TRANSFER HERSELF TO COMMODE W/O ASSISTANCE IF COMMODE AND WALKER ARE AT BEDSIDE. PT MEDICATED PER EMAR. PT TOLERATING DIET WELL. PT CONTINUES TO REST IN HER ROOM AT THIS TIME. WILL CONTINUE TO MONITOR AND UPDATE NECESSARY.
--- NOTE | 2021-08-27 04:38 | NUR ---
SUMMARY PT SLEPT WELL T/O THE NIGHT. PT MEDICATED FOR PAIN PER EMAR RESULTING IN THE PATIENT FALLING ASLEEP. NO ACUTE EVENTS NOTED. WOUND VAC REMAINS COMPRESSED, MINIMAL SS OUTPUT NOTED. PT REMAINED ON 1L OF O2 VIA NC WHILE SLEEPING TO KEEP SATURATIONS ABOVE 90%. PT CURRENTLY RESTING IN BED WITH RLE ELEVATED, CALL LIGHT IN REACH.
--- NOTE | 2021-08-27 10:36 | NUR ---
Pt. is awake in bed, and welcomes my visit. Family is present at bedside. Pt. is awaiting clearance for discharge, and is unsettled by the need to be able to have wound vac at home. Pt. verbalized that she had been unable to do PT the previous day because of receiving medicine that would allow her to sleep. Pt. is a woman of ita. Pt. displays evidence of wanting to be able to return home. [employer] building affirmed that she has a good support system. Prayed with Pt. and family. Pt. and family verbalized gratitude for the spiritual care visit.
--- NOTE | 2021-08-27 19:22 | NUR ---
SHIFT SUMMARY POD3 LLE TMA, A/OX 4, VSS, TOLERATING PO, SBA TO COMMODE, PAIN MANAGED PER EMAR, WOUND VAC IN PLACE WHICH WAS CHANGED TODAY, ORDERS TO CHANGE IT M/W/F PUT IN TODAY PER SURGEON. SMALL LEAK AFTER WV CHANGE NOTED WHICH WAS CLEANED AND REINFORCED. NO ACUTE EVENTS THIS SHIFT. CALL LIGHT IN REACH, REPORT GIVEN TO SHOLA RITCHIE.
[2021-08-28 01:23] LABS: BASOPHILS ABSOLUTE AUTO 0.04 K/mm3 (0.00-0.23); BASOPHILS PERCENT AUTO 1 % (0-2); EOSINOPHILS ABSOLUTE AUTO 0.29 K/mm3 (0.00-0.68); EOSINOPHILS PERCENT AUTO 3 % (0-6); Hematocrit 34.4 % (33.0-51.0); Hemoglobin 11.3 g/dL (11.5-16.0); IMMATURE GRAN ABSOLUTE AUTO 0.02 K/mm3 (0.00-0.10); IMMATURE GRAN PERCENT AUTO 0 % (0-1); LYMPHOCYTES ABSOLUTE AUTO 3.07 K/mm3 (0.84-5.20); LYMPHOCYTES PERCENT AUTO 36 % (21-46); MONOCYTES ABSOLUTE AUTO 0.74 K/mm3 (0.16-1.47); MONOCYTES PERCENT AUTO 9 % (4-13); Mean Corpuscular HGB Conc 32.8 g/dL (31.5-36.5); Mean Corpuscular Volume 88 fL (80-100); Mean Platelet Volume 11.2 fL (9.1-12.4); NEUTROPHILS ABSOLUTE AUTO 4.34 K/mm3 (1.96-9.15); NEUTROPHILS PERCENT AUTO 51 % (41-73); Platelet Count 191 K/mm3 (150-400); RDW Coefficient Variation 12.5 % (11.7-14.2); RDW Standard Deviation 40.2 fL (35.1-46.3); Red Blood Cell Count 3.89 M/mm3 (3.80-5.20)
[2021-08-28 01:40] LABS: Vancomycin, Trough 16.9 ug/mL (5.0-10.0)
[2021-08-28 01:42] LABS: Albumin, Blood 2.2 g/dL (3.4-5.0); Albumin/Globulin Ratio 0.6 (0.8-1.8); Bilirubin, Total 0.2 mg/dL (0.1-1.0); Bun/Creatinine Ratio 32.5 (12.0-20.0); Calcium, Blood 9.1 mg/dL (8.5-10.1); Creatinine, Blood 0.58 mg/dL (0.40-1.00); Globulin, Blood 3.7 g/dL (2.2-4.0); Potassium, Blood 4.8 mmol/L (3.5-5.5); Total Protein, Blood 5.9 g/dL (6.4-8.2)
--- NOTE | 2021-08-28 10:32 | NUR ---
ROUNDED ON PT AND SHE IS RESTING. EVEN UNLABORED RESPIRATIONS NOTED. CALL LIGHT IS WITHIN REACH.
--- NOTE | 2021-08-28 17:50 | NUR ---
SHIFT SUMMARY PT IS POD#4 FOR L TRANSMETARSAL AMPUTATION. PT IS A&OX4 AND PLEASANT. PT'S PAIN HAS BEEN ELEVATED THROUGHT THE DAY (8 OR HIGHER ON PAIN SCALE) BUT PT STATES SHE HAS A HIGH PAIN TOLERANCE. PT USUALLY REQUESTS PAIN MEDS WHEN HER PAIN IS A 10 OR SHE DESCRIBES IT SHOOTING PAIN. PT IS ABLE TO STAND AND PIVOT TO BEDSIDE COMMODE WITH MINIMAL ASSISTANCE. PT HAS WOUND VAC IN PLACE ON L FOOT AND DRESSING IS REINFORCED BUT MAINTAING SUCTION. MINIMAL SEROSANGUINEOUS DRAINAGE IN WOUND VAC CANISTER. PT IS RESTING COMFORTABLY AND EATING DINNER AT THIS TIME.
--- NOTE | 2021-08-29 05:53 | NUR ---
SUMMARY GAVE PT TORADOL AND DILAUDID THIS AM WITH REPORTS OF 0 PAIN AT THIS TIME.
[2021-08-29 13:27] LABS: Vancomycin, Trough 19.9 ug/mL (5.0-10.0)
--- NOTE | 2021-08-29 16:01 | NUR ---
PT REPORTS PAIN HAS IMPROVED TO 7/10 AFTER RECEIVING IBUPROFEN PER ORDERS.
--- NOTE | 2021-08-29 18:10 | NUR ---
SUMMARY NO ACUTE CHANGES T/O SHIFT. PT REPORTS PAIN TOLERABLE WHEN RATING 9/10. WHEN PT RATES AT 10, FEELS NEED FOR PAIN MEDICATION. MEDICATED PT FOR PAIN PER ORDERS. COVERED PT'S CBGS AND ADMINISTERED ABX PER ORDERS. PT INDEPDENT TO BSC AND REPOSITIONING IN BED. CALL LIGHT IN REACH.
--- NOTE | 2021-08-29 21:15 | NUR ---
REPORT GIVEN TO Patricia HAYNES RN TO ASSUME CARE. PT APPEARS TO BE SLEEPING IN BED, RESP E/U, NO DISTRESS NOTED.
[2021-08-30 04:10] LABS: Bun/Creatinine Ratio 40.6 (12.0-20.0); Calcium, Blood 8.9 mg/dL (8.5-10.1); Creatinine, Blood 0.67 mg/dL (0.40-1.00); Potassium, Blood 4.9 mmol/L (3.5-5.5)
--- NOTE | 2021-08-30 05:01 | NUR ---
SHIFT SUMMARY A/O X4. POD6 R TMA- WOUND VAC IN PLACE. PT IND TO BSC, VOIDING WELL. PAIN MANAGED W/ PO AND IV PAIN MEDICATIONS PER EMAR. TOLERATING PO INTAKE, NO N/V REPORTED. VITAL SIGNS STABLE. NO ACUTE CHANGES THROUGHOUT SHIFT. WILL CONTINUE TO MONITOR AND REPORT TO ONCOMING RN.
--- NOTE | 2021-08-30 18:47 | NUR ---
SHIFT SUMMARY POD6 L TMA, A/OX4, VSS, TOLERATING PO, INDEPENDENT TO BSC, PAIN MANAGED PER EMAR, WOUND VAC CHANGED TODAY PER SURGEON ORDER, SOME SCANT BLEEDING FROM SURGICAL SITE EDGES. NO ACUTE EVENTS THIS SHIFT, CALL LIGHT IN REACH, WILL CTM AND REPORT TO ONCOMING NOC RN.
--- NOTE | 2021-08-30 23:09 | NUR ---
AGREE WITH LIFT TRUCK OPERATOR SHIFT ASSESSMENT DOCUMENTATION.
[2021-08-31 04:11] LABS: Bun/Creatinine Ratio 34.5 (12.0-20.0); Calcium, Blood 8.6 mg/dL (8.5-10.1); Creatinine, Blood 0.84 mg/dL (0.40-1.00); Potassium, Blood 4.9 mmol/L (3.5-5.5)
--- NOTE | 2021-08-31 04:21 | NUR ---
SHIFT SUMMARY, PT POD6 FOR L TMA, WITH WOUNDVAC PLACEMENT. PT TOLERATING PO INTAKE, DENIES N/V. WOUNDVAC SEAL AND SUCTION IS INTACT, SMALL AMOUNT OF SEROSANGUINOUS FLUID DRAINING. LLE ELEVATED ON PILLOW THROUGHOUT SHIFT. PAIN MANAGED PER EMAR, REQUIRE IV PAIN MED FOR BREAKTHROUGH PAIN X1. SLEPT FOR SEVERAL HOURS, REPORTS GOOD PAIN MANAGEMENT THIS AM. IV L FOREARM DC'D FOR LEAKING, 20G STARTED IN R AC. RUNNING AT TKO. PT UP TO BSC INDEP. VOIDING, PASSING GAS WELL. AWAITING DISCHARGE PLANNING FOR HOME WOUNDVAC APPROVAL. VSS, WILL REPORT TO ÓSCAR RN.
[2021-08-31 13:49] LABS: Vancomycin, Trough 27.2 ug/mL (5.0-10.0)
[2021-08-31] MEDS ORDERED: IBUP400 PO (17:21)
[2021-08-31] MEDS ORDERED: HYDR1TAB94 PO (17:21)
[2021-08-31] MEDS ORDERED: INSULANPEN SC (17:22)
[2021-08-31] MEDS ORDERED: MIRALAX17 GM PO (17:23)
[2021-08-31] MEDS ORDERED: Prinivil10 MG PO (17:23)
[2021-08-31] MEDS ORDERED: SULTRIDS PO (17:24)
--- NOTE | 2021-08-31 18:24 | NUR ---
DISCHARGE SUMMARY POD6 L TMA, A/OX 4, VSS, TOLERATING PO, PAIN MANAGED PER EMAR. DISCUSSED DISCHARGE INFORMATION WITH THE PATIENT INCLUDING HOME CARE, WOUND VAC USE, FOLLOW UP APPOINTMENTS (WOUND CLINIC AND SURGEON), MEDICATIONS, AND CONTACT INFORMATION SHOULD QUESTIONS/CONCERNS COME UP AFTER DISCHARGE. WOUND VAC CHANGED OVER WITH MINIMAL DRAINAGE NOTED IN HOSPITAL CANISTER. IV ACCESS REMOVED AND NO OTHER DEVICES INPLACE. PT ESCORTED OUT VIA WC TO PRIVATE AUTO WITHOUT INCIDENT TO GO HOME WITH ALL PERSONAL POSSESSIONS.
== END 2021-08-31 18:10 | disposition home or self-care (01) | DRG 240 ==
LOC: SURS 10:46 → PRE IP 13:30 → SURS 13:54
PROVIDERS: Family Medicine; Hospitalist; Pharmacist; ADMIT Orthopaedic Surgery
PROC: 0Y6N0ZB Detachment at Left Foot, Partial 2nd Ray, Open Approach (ICD-10-PCS; 2021-08-24)
PROC: 0Y6N0ZC Detachment at Left Foot, Partial 3rd Ray, Open Approach (ICD-10-PCS; 2021-08-24)
PROC: 0Y6N0ZD Detachment at Left Foot, Partial 4th Ray, Open Approach (ICD-10-PCS; 2021-08-24)
PROC: 0Y6N0ZF Detachment at Left Foot, Partial 5th Ray, Open Approach (ICD-10-PCS; 2021-08-24)
PROC: 0Y6N0Z9 Detachment at Left Foot, Partial 1st Ray, Open Approach (ICD-10-PCS; principal; 2021-08-24 13:30)
DX: E11.52 Type 2 diabetes mellitus with diabetic peripheral angiopathy with gangrene (principal); I70.262 Atherosclerosis of native arteries of extremities with gangrene, left leg; Z20.822 Contact with and (suspected) exposure to COVID-19; L97.529 Non-pressure chronic ulcer of other part of left foot with unspecified severity; I70.245 Atherosclerosis of native arteries of left leg with ulceration of other part of foot; E11.42 Type 2 diabetes mellitus with diabetic polyneuropathy; D64.9 Anemia, unspecified; J44.9 Chronic obstructive pulmonary disease, unspecified; I10 Essential (primary) hypertension; E78.5 Hyperlipidemia, unspecified; E11.621 Type 2 diabetes mellitus with foot ulcer; G89.29 Other chronic pain; E66.9 Obesity, unspecified; Z86.16 Personal history of COVID-19; Z68.34 Body mass index [BMI] 34.0-34.9, adult; Z79.02 Long term (current) use of antithrombotics/antiplatelets; Z79.84 Long term (current) use of oral hypoglycemic drugs; Z79.899 Other long term (current) drug therapy; Z88.8 Allergy status to other drugs, medicaments and biological substances; Z88.0 Allergy status to penicillin; Z88.5 Allergy status to narcotic agent; Z91.030 Bee allergy status; Z88.6 Allergy status to analgesic agent; Z85.3 Personal history of malignant neoplasm of breast; Z86.718 Personal history of other venous thrombosis and embolism; Z90.49 Acquired absence of other specified parts of digestive tract; Z90.89 Acquired absence of other organs; Z98.890 Other specified postprocedural states; Z87.891 Personal history of nicotine dependence; Z79.01 Long term (current) use of anticoagulants
CPT/HCPCS: 0241U; 36415; 80048; 80053; 80069; 80202; 82565; 82947; 83735; 85025; 88307; 88311; 94762; 97110; 97162; 97165; 97530; 97535; A9270; C9113; J1100; J1170; J1644; J1650; J1815; J1885; J2270; J2370; J2405; J2704; J3010; J3370; J7030; J7040; J7060; J7120

== ENCOUNTER 2021-09-03 09:38 | Day surgery (SDC) | payer OTHER ==
[~2021-09-03 09:38] MED LIST changes: +IBUP400 PO; +INSULANPEN SC; +MIRALAX17 GM PO; +Prinivil10 MG PO; +SULFAMETHOXAZO1 EAC1 PO; +SULTRIDS PO
== END 2021-09-03 23:14 | disposition home or self-care (01) ==
LOC: WOUND 09:38
DX: T87.89 Other complications of amputation stump (principal); E11.621 Type 2 diabetes mellitus with foot ulcer; L97.522 Non-pressure chronic ulcer of other part of left foot with fat layer exposed; E11.59 Type 2 diabetes mellitus with other circulatory complications; E11.40 Type 2 diabetes mellitus with diabetic neuropathy, unspecified; Z88.5 Allergy status to narcotic agent; Z88.0 Allergy status to penicillin; Z88.6 Allergy status to analgesic agent; Z91.038 Other insect allergy status
CPT/HCPCS: A9270

== ENCOUNTER 2021-09-10 08:00 | Day surgery (SDC) | payer SELFPAY | END 2021-09-10 23:59 | disposition home or self-care (01) | LOC: WOUND 08:00 | DX: E11.621 Type 2 diabetes mellitus with foot ulcer (principal); L97.522 Non-pressure chronic ulcer of other part of left foot with fat layer exposed; T87.89 Other complications of amputation stump; E11.59 Type 2 diabetes mellitus with other circulatory complications | CPT/HCPCS: A9270 ==

== ENCOUNTER 2021-09-13 00:22 | Day surgery (SDC) | payer SELFPAY | END 2021-09-13 23:29 | disposition home or self-care (01) | LOC: WOUND 00:22 | DX: E11.621 Type 2 diabetes mellitus with foot ulcer (principal); E11.59 Type 2 diabetes mellitus with other circulatory complications; T87.89 Other complications of amputation stump ==

== ENCOUNTER 2021-09-17 01:34 | Day surgery (SDC) | payer SELFPAY | END 2021-09-17 22:54 | disposition home or self-care (01) | LOC: WOUND 01:34 | DX: E11.621 Type 2 diabetes mellitus with foot ulcer (principal); L97.522 Non-pressure chronic ulcer of other part of left foot with fat layer exposed; E11.59 Type 2 diabetes mellitus with other circulatory complications; T87.89 Other complications of amputation stump | CPT/HCPCS: A9270; G0463 ==

== ENCOUNTER 2021-09-20 09:22 | Day surgery (SDC) | payer SELFPAY | END 2021-09-20 23:52 | disposition home or self-care (01) | LOC: WOUND 09:22 | DX: E11.621 Type 2 diabetes mellitus with foot ulcer (principal); E11.59 Type 2 diabetes mellitus with other circulatory complications; T87.89 Other complications of amputation stump; L97.509 Non-pressure chronic ulcer of other part of unspecified foot with unspecified severity ==

== ENCOUNTER 2021-09-22 00:53 | Day surgery (SDC) | payer SELFPAY | END 2021-09-22 22:41 | disposition home or self-care (01) | LOC: WOUND 00:53 | DX: Z48.01 Encounter for change or removal of surgical wound dressing (principal); E11.621 Type 2 diabetes mellitus with foot ulcer; L97.909 Non-pressure chronic ulcer of unspecified part of unspecified lower leg with unspecified severity; Z89.432 Acquired absence of left foot ==

== ENCOUNTER 2021-09-24 01:38 | Day surgery (SDC) | payer SELFPAY | END 2021-09-24 22:45 | disposition home or self-care (01) | LOC: WOUND 01:38 | DX: E11.621 Type 2 diabetes mellitus with foot ulcer (principal); L97.522 Non-pressure chronic ulcer of other part of left foot with fat layer exposed; R77.0 Abnormality of albumin; T87.89 Other complications of amputation stump; E11.59 Type 2 diabetes mellitus with other circulatory complications | CPT/HCPCS: 73630; A9270; G0463 ==

== ENCOUNTER 2021-09-27 02:56 | Day surgery (SDC) | payer SELFPAY | END 2021-09-27 23:06 | disposition home or self-care (01) | LOC: WOUND 02:56 | DX: T87.89 Other complications of amputation stump (principal); L97.522 Non-pressure chronic ulcer of other part of left foot with fat layer exposed; M79.672 Pain in left foot; R77.0 Abnormality of albumin | CPT/HCPCS: A9270; G0463 ==

== ENCOUNTER 2021-09-29 01:56 | Day surgery (SDC) | payer SELFPAY | END 2021-09-29 22:42 | disposition home or self-care (01) | LOC: WOUND 01:56 | DX: E11.621 Type 2 diabetes mellitus with foot ulcer (principal); L97.522 Non-pressure chronic ulcer of other part of left foot with fat layer exposed; M79.672 Pain in left foot; R77.0 Abnormality of albumin | CPT/HCPCS: A9270 ==

== ENCOUNTER 2021-10-01 03:39 | Day surgery (SDC) | payer SELFPAY | END 2021-10-01 22:57 | disposition home or self-care (01) | LOC: WOUND 03:39 | DX: E11.621 Type 2 diabetes mellitus with foot ulcer (principal); L97.522 Non-pressure chronic ulcer of other part of left foot with fat layer exposed; M79.672 Pain in left foot; R77.0 Abnormality of albumin | CPT/HCPCS: A9270 ==

== ENCOUNTER 2021-10-05 01:01 | Day surgery (SDC) | payer SELFPAY | END 2021-10-05 23:00 | disposition home or self-care (01) | LOC: WOUND 01:01 | DX: E11.621 Type 2 diabetes mellitus with foot ulcer (principal); L97.522 Non-pressure chronic ulcer of other part of left foot with fat layer exposed ==

== ENCOUNTER 2021-10-11 00:45 | Day surgery (SDC) | payer OTHER | END 2021-10-11 23:03 | disposition home or self-care (01) | LOC: WOUND 00:45 | DX: T87.89 Other complications of amputation stump (principal); Y83.8 Other surgical procedures as the cause of abnormal reaction of the patient, or of later complication, without mention of misadventure at the time of the procedure; E11.621 Type 2 diabetes mellitus with foot ulcer; L97.502 Non-pressure chronic ulcer of other part of unspecified foot with fat layer exposed; R77.0 Abnormality of albumin | CPT/HCPCS: A9270 ==

== ENCOUNTER 2021-10-15 03:10 | Day surgery (SDC) | payer SELFPAY | END 2021-10-15 23:06 | disposition home or self-care (01) | LOC: WOUND 03:10 | DX: E11.621 Type 2 diabetes mellitus with foot ulcer (principal); L97.509 Non-pressure chronic ulcer of other part of unspecified foot with unspecified severity | CPT/HCPCS: A9270 ==

== ENCOUNTER 2021-10-18 05:47 | Day surgery (SDC) | payer SELFPAY | END 2021-10-18 23:06 | disposition home or self-care (01) | LOC: WOUND 05:47 | DX: E11.621 Type 2 diabetes mellitus with foot ulcer (principal); Z87.891 Personal history of nicotine dependence | CPT/HCPCS: 99406; A9270 ==

== ENCOUNTER 2021-10-21 01:33 | Day surgery (SDC) | payer SELFPAY | END 2021-10-22 23:05 | disposition home or self-care (01) | LOC: WOUND 01:33 | DX: E11.621 Type 2 diabetes mellitus with foot ulcer (principal); L97.522 Non-pressure chronic ulcer of other part of left foot with fat layer exposed; R77.0 Abnormality of albumin | CPT/HCPCS: A9270 ==

== ENCOUNTER 2021-10-25 05:43 | Day surgery (SDC) | payer SELFPAY | END 2021-10-25 23:23 | disposition home or self-care (01) | LOC: WOUND 05:43 | DX: E11.621 Type 2 diabetes mellitus with foot ulcer (principal); L97.522 Non-pressure chronic ulcer of other part of left foot with fat layer exposed | CPT/HCPCS: A9270 ==

== ENCOUNTER 2021-10-27 01:12 | Day surgery (SDC) | payer SELFPAY | END 2021-10-27 23:29 | disposition home or self-care (01) | LOC: WOUND 01:12 | DX: E11.621 Type 2 diabetes mellitus with foot ulcer (principal); L97.522 Non-pressure chronic ulcer of other part of left foot with fat layer exposed; M79.672 Pain in left foot; R77.0 Abnormality of albumin | CPT/HCPCS: A9270 ==

== ENCOUNTER 2021-10-29 01:14 | Day surgery (SDC) | payer SELFPAY | END 2021-10-29 22:59 | disposition home or self-care (01) | LOC: WOUND 01:14 | DX: E11.621 Type 2 diabetes mellitus with foot ulcer (principal); L97.525 Non-pressure chronic ulcer of other part of left foot with muscle involvement without evidence of necrosis; L97.522 Non-pressure chronic ulcer of other part of left foot with fat layer exposed; R77.0 Abnormality of albumin; M79.672 Pain in left foot | CPT/HCPCS: A9270 ==

== ENCOUNTER 2021-11-01 00:37 | Day surgery (SDC) | payer SELFPAY | END 2021-11-01 23:06 | disposition home or self-care (01) | LOC: WOUND 00:37 | DX: E11.621 Type 2 diabetes mellitus with foot ulcer (principal); L97.522 Non-pressure chronic ulcer of other part of left foot with fat layer exposed; M79.672 Pain in left foot; R77.0 Abnormality of albumin | CPT/HCPCS: A9270 ==

== ENCOUNTER 2021-11-03 12:00 | Day surgery (SDC) | payer SELFPAY | END 2021-11-04 23:11 | disposition home or self-care (01) | LOC: WOUND 12:00 | DX: E11.621 Type 2 diabetes mellitus with foot ulcer (principal); L97.522 Non-pressure chronic ulcer of other part of left foot with fat layer exposed; M79.672 Pain in left foot; R77.0 Abnormality of albumin | CPT/HCPCS: A9270 ==

== ENCOUNTER 2021-11-05 02:30 | Day surgery (SDC) | payer SELFPAY | END 2021-11-05 22:50 | disposition home or self-care (01) | LOC: WOUND 02:30 | DX: T87.89 Other complications of amputation stump (principal); E11.621 Type 2 diabetes mellitus with foot ulcer; M79.672 Pain in left foot; R77.0 Abnormality of albumin; L97.525 Non-pressure chronic ulcer of other part of left foot with muscle involvement without evidence of necrosis | CPT/HCPCS: A9270 ==

== ENCOUNTER 2021-11-12 01:47 | Day surgery (SDC) | payer SELFPAY | END 2021-11-12 23:24 | disposition home or self-care (01) | LOC: WOUND 01:47 | DX: E11.621 Type 2 diabetes mellitus with foot ulcer (principal); L97.522 Non-pressure chronic ulcer of other part of left foot with fat layer exposed; M79.672 Pain in left foot; R77.0 Abnormality of albumin | CPT/HCPCS: A9270 ==

== ENCOUNTER 2021-11-26 02:07 | Day surgery (SDC) | payer SELFPAY | END 2021-11-26 23:12 | disposition home or self-care (01) | LOC: WOUND 02:07 | DX: T87.89 Other complications of amputation stump (principal); E11.621 Type 2 diabetes mellitus with foot ulcer; L97.522 Non-pressure chronic ulcer of other part of left foot with fat layer exposed; R77.0 Abnormality of albumin; Z87.891 Personal history of nicotine dependence | CPT/HCPCS: A9270 ==

== ENCOUNTER 2021-12-10 01:58 | Day surgery (SDC) | payer SELFPAY | END 2021-12-10 23:08 | disposition home or self-care (01) | LOC: WOUND 01:58 | DX: E11.621 Type 2 diabetes mellitus with foot ulcer (principal); L97.522 Non-pressure chronic ulcer of other part of left foot with fat layer exposed; M79.672 Pain in left foot; R77.0 Abnormality of albumin | CPT/HCPCS: G0463 ==

== ENCOUNTER 2022-06-03 14:30 | Inpatient (IN) | payer OTHER ==
[~2022-06-03] VITALS: Ht 152.4 cm; Wt 97.2 kg
[2022-06-03] MEDS ORDERED: ACTOS30 MG PO (14:56)
[2022-06-03] MEDS ORDERED: POTCHL20ER PO (18:07)
[2022-06-03] MEDS ORDERED: FURO20 PO (18:07)
--- NOTE | 2022-06-03 18:12 | NUR ---
PT ARRIVED TO THE MEDICAL FLOOR VIA GURNEY FROM THE ER. PT IS A/OX4, PLEASANT AND COOPERATIVE. PT IS ORIENTED TO THE [facility] LAYOUT AND CALL SYSTEM. CALL LIGHT IN REACH PT UIP WITH MINIMAL ASSIST
--- NOTE | 2022-06-03 20:41 | NUR ---
HYPERTENSIVE DR. LINDSEY NOTIFIED OF PT BP 161/101, PT PREVIOUS BP HAVE BEEN MUCH HIGHER. LABATELOL 10 MG ORDERED PRN FOR BP GREATER THAN 160.
--- NOTE | 2022-06-03 22:00 | NUR ---
BLOOD SUGAR PT BG 428 WITH HS CHECK. PT HAS RECEIVED MINIMAL COVERAGE TODAY FOR HER BG. DR. LINDSEY CALLED AND NOTIFIED. PT TO RECEIVE 20 UNITS IF LANTUS AND 4 UNITS OF REGULAR INSULIN PER SS ORDERS. DR. LINDSEY NOTIFIED OF THE DOSE SHE WOULD RECEIVE PER ORDERS ALREADY IN PLACE BY DR. GRACIA. NO ADDITIONAL ORDERS GIVEN FOR HER BG.
[2022-06-03 22:21] LABS: Source, Urine Straight Cath
[2022-06-03 22:40] LABS: Appearance, Urine Clear (Clear); Bilirubin, Urine Neg (Neg); Blood, Urine 2+ (Neg); Color, Urine Pale Yellow (P-Yellow); Glucose Qualitative, Urine 4+ (Neg); Ketones, Urine Neg (Neg); Leukocyte Esterase, Urine Neg (Neg); Nitrite, Urine Neg (Neg); Protein, Urine 3+ (Neg); Urobilinogen, Urine NORM (Normal)
[2022-06-03 22:52] LABS: Bacteria Rare /hpf; Squamous Epithelial Cells Few /hpf (Few); White Blood Cells, Urine Not Seen /hpf (0-5)
--- NOTE | 2022-06-04 00:57 | NUR ---
TROPONIN DR. SEN NOTIFIED THAT PT TROPONIN BUMPED SLIGHTLY FROM 226 TO 231 THIS AM, NO NEW ORDERS GIVEN.
--- NOTE | 2022-06-04 00:59 | NUR ---
BLOOD GLUCOSE 432 PT BG HAS INCREASED FROM 428 TO 432 WITH REPEAT CHECK AROUND 0030. PT RECEIVED 20 UNITS OF LANTUS AND 4 UNITS OF REGULAR INSULIN WITH NO EFFECT ON HER BG. DR. SEN MADE AWARE OF BG OF 432, WELL PRIOR BG READINGS. ALSO MADE HIM AWARE OF HOW MUCH INSULIN PT RECEIVED AT BEDTIME. HE ORDERED FOR 15 UNITS LANTUS NOW, AND TO CHANGE LANTUS ORDER TO 20 UNITS BID.
--- NOTE | 2022-06-04 04:50 | NUR ---
SHIFT SUMMARY PT HAS RESTED MOST THE NIGHT, PT HAS NO COMPLAINTS OF PAIN. SERIAL TROPONIN'/S TAKEN THIS SHIFT, WITH SLIGHT INCREASE IN RESULTS. PROIVDER MADE AWARE WITH NO NEW ORDERS GIVEN. NO ACUTE EVENTS ON TELE. NSR W PVC'S. PT HAS BEEN HYPERTENSIVE, MEDICATED WITH LABETALOL PER ORDERS WITH EFFECT. PT HAS EDEMA T/O, PT HAS BEEN DIURESING AND IS ON A FLUID RESTRICTION. UNCONTROLLED BLOOD SUGARS THIS SHIFT IN THE 400'S, MADE AWARE AND ADJUSTMENTS HAVE BEEN MADE TO HER INSULIN PER ORDERS. NO OTHER CHANGES OVERNIGHT. BED IN LOWEST POSITION, CALL LIGHT WITHIN REACH.
[2022-06-04 05:35] LABS: BASOPHILS ABSOLUTE AUTO 0.02 K/mm3 (0.00-0.23); BASOPHILS PERCENT AUTO 0 % (0-2); EOSINOPHILS PERCENT AUTO 0 % (0-6); Hematocrit 41.5 % (33.0-51.0); Hemoglobin 12.9 g/dL (11.5-16.0); IMMATURE GRAN ABSOLUTE AUTO 0.02 K/mm3 (0.00-0.10); IMMATURE GRAN PERCENT AUTO 0 % (0-1); LYMPHOCYTES ABSOLUTE AUTO 1.77 K/mm3 (0.84-5.20); LYMPHOCYTES PERCENT AUTO 25 % (21-46); MONOCYTES ABSOLUTE AUTO 0.72 K/mm3 (0.16-1.47); MONOCYTES PERCENT AUTO 10 % (4-13); Mean Corpuscular HGB 29.5 pg (26.0-34.0); Mean Corpuscular HGB Conc 31.1 g/dL (31.5-36.5); Mean Corpuscular Volume 95 fL (80-100); Mean Platelet Volume 12.2 fL (9.1-12.4); NEUTROPHILS ABSOLUTE AUTO 4.51 K/mm3 (1.96-9.15); NEUTROPHILS PERCENT AUTO 64 % (41-73); Platelet Count 166 K/mm3 (150-400); RDW Standard Deviation 48.6 fL (35.1-46.3); Red Blood Cell Count 4.38 M/mm3 (3.80-5.20); White Blood Cell Count 7.04 K/mm3 (4.00-11.30)
[2022-06-04 06:17] LABS: Albumin, Blood 1.8 g/dL (3.4-5.0); Albumin/Globulin Ratio 0.5 (0.8-1.8); Bilirubin, Total 0.2 mg/dL (0.1-1.0); Bun/Creatinine Ratio 36.9 (12.0-20.0); Calcium, Blood 8.3 mg/dL (8.5-10.1); Creatinine, Blood 1.11 mg/dL (0.40-1.00); Globulin, Blood 3.7 g/dL (2.2-4.0); Potassium, Blood 4.4 mmol/L (3.5-5.5); Total Protein, Blood 5.5 g/dL (6.4-8.2)
--- NOTE | 2022-06-04 08:00 | NUR ---
Pt sitting up on the side of the bed eating breakfast, a/ox3, pleasant and coopertive with care, follows commands well, denies pain, states she's feeling ok, lungs are course t/o with wheezing, currently on 3 liters o2 via n/c, no cough noted, hrr, tele in place running sr with occ pvc, see strip, 2+edema noted to b/l le, cap refill <3sec, vs stable, afebrile, iv site is clear and patent, btx4, abd flat soft nontender, voids without diff, skin c/w/d, maew, ren, call light in reach.
--- NOTE | 2022-06-04 15:48 | NUR ---
pt had three loose stools today, out of breath with activity, has a tight productive cough, call light in reach.
--- NOTE | 2022-06-04 18:38 | NUR ---
pt yells out, but is usually on the phone or talking to the tv, no acute changes this shift. call light in reach.
--- NOTE | 2022-06-04 21:49 | NUR ---
BLOOD SUGAR 131, LANTUS BLOOD SUGAR 131, PT HAS 20 UNITS OF LANTUS ORDERED FOR BEDTIME. DR. DUMONT MADE AWARE OF BLOOD SUGAR OF 131, PT ATE ALL OF HER DINNER THIS EVENING. HE STILL WANTS PT TO RECEIVE 20 UNITS OF LANTUS AND DID NOT WANT TO DECREASE THE DOSE.
--- NOTE | 2022-06-05 05:36 | NUR ---
SHIFT SUMMARY NO ACUTE CHANGES TO REPORT OVERNIGHT. PT HAS SLEPT MOST OF THE NIGHT, NO ACUTE CHANGES ON TELE. NO COMPLAINTS OF CHEST PAIN. PT RECEIVING LASIKS DURING THE DAY AND HAS VOIDED TWICE THIS SHIFT. PT WAS CONCERNED THAT SHE HAS NOT BEEN URINATING MUCH SINCE RECEIVING LASIKS YESTERDAY AFTERNOON. BLADDER SCAN ONLY REVEALED 158 MLS IN BLADDER. AFTER BLADDER SCAN PT WAS ABLE TO VOID. VITALS ARE STABLE. BLOOD SUGARS HAVE STABLIZED, SHE WAS IN THE 130'S AT HS. LANTUS GIVEN PER ORDERS AND A BEDTIME SNACK WAS OFFERED WHICH PT FINISHED. PT REPORTS THAT SWELLING IN HER HANDS HAVE GONE DOWN, BLE REMAIN QUITE SWOLLEN STILL. THE NIGHT WAS OTHERWISE UNEVENTFUL. BED IN LOWEST POSITION, CALL LIGHT WITHIN REACH.
[2022-06-05 05:41] LABS: BASOPHILS ABSOLUTE AUTO 0.04 K/mm3 (0.00-0.23); BASOPHILS PERCENT AUTO 1 % (0-2); EOSINOPHILS ABSOLUTE AUTO 0.07 K/mm3 (0.00-0.68); EOSINOPHILS PERCENT AUTO 1 % (0-6); Hematocrit 40.9 % (33.0-51.0); Hemoglobin 12.6 g/dL (11.5-16.0); IMMATURE GRAN ABSOLUTE AUTO 0.02 K/mm3 (0.00-0.10); IMMATURE GRAN PERCENT AUTO 0 % (0-1); LYMPHOCYTES ABSOLUTE AUTO 2.61 K/mm3 (0.84-5.20); LYMPHOCYTES PERCENT AUTO 33 % (21-46); MONOCYTES ABSOLUTE AUTO 0.92 K/mm3 (0.16-1.47); MONOCYTES PERCENT AUTO 12 % (4-13); Mean Corpuscular HGB 29.2 pg (26.0-34.0); Mean Corpuscular HGB Conc 30.8 g/dL (31.5-36.5); Mean Corpuscular Volume 95 fL (80-100); Mean Platelet Volume 12.1 fL (9.1-12.4); NEUTROPHILS ABSOLUTE AUTO 4.29 K/mm3 (1.96-9.15); NEUTROPHILS PERCENT AUTO 54 % (41-73); Platelet Count 167 K/mm3 (150-400); RDW Coefficient Variation 13.9 % (11.7-14.2); RDW Standard Deviation 48.3 fL (35.1-46.3); Red Blood Cell Count 4.32 M/mm3 (3.80-5.20); White Blood Cell Count 7.95 K/mm3 (4.00-11.30)
[2022-06-05 06:10] LABS: Bun/Creatinine Ratio 46.5 (12.0-20.0); Calcium, Blood 7.8 mg/dL (8.5-10.1); Creatinine, Blood 1.14 mg/dL (0.40-1.00); Potassium, Blood 4.6 mmol/L (3.5-5.5)
--- NOTE | 2022-06-05 09:10 | NUR ---
pt laying in bed, awake, a/ox3, pleasant and cooperative with care follows commands well, states she had a rough night, and her abd hurts from coughing, has a dry tight occ productive cough, lungs are course with exp wheezing t/o, currently on 3 liters 02 via n/c, resp even and unlabored at rest, becomes dyspnic with exertion, hrr, tele in place running sr per monitor, see strip, 2+ edema noted to b/l le, cap refill <3sec, vs stable, afebrile, iv site to lac is clear and patent, btx4, abd flat soft nontender, voids without diff, skin c/w/d, maew, ren, call light in reach.
--- NOTE | 2022-06-05 18:17 | NUR ---
pt in good humor, up to bathroom indep, states she has voided a lot today, no acute changes this shift. call light in reach.
--- NOTE | 2022-06-06 06:44 | NUR ---
SHEEP FARM WORKER SUMMARY: A&Ox4. PLEASANT AND COOPERATIVE WITH CARE. CALLS APPROPRIATELY AND IS ABLE TO COMMUNICATE NEEDS EFFECTIVELY. C / O RLQ PAIN SHE ATTRIBUTES TO FREQUENT COUGHING. MEDICATED PRN NORCO TWICE AND ONCE PRN ROBITUSSIN IN ADDITION TO BREATHING Tx. PROVIDED HEATING PAD FOR MUSCLE PAIN. - FLUID BALANCE 321mL. LUNGS COARSE AND WET; CONTINUES WITH BD w/ RT. REPORT TO ONCOMING RN.
--- NOTE | 2022-06-06 18:00 | NUR ---
SHIFT SUMMARY PT UP TO BATHROOM INDEPENDENTLY. FOLLOWING FLUID RESTRICTION APPROPRIATELY. SOB WITH ACTIVITY. COUGH NONPRODUCTIVE BUT HARSH. REPORTS PAIN PRIMARILY IN RLQ WHEN SHE COUGHS. STATES SHE FEELS THAT THE SWELLING IN HER LEGS FEEL A BIT LESS TIGHT TODAY.
--- NOTE | 2022-06-07 06:11 | NUR ---
PATIENT ALERT AND ORIENTED X4, INDEPENDENT, SR ON TELE, 3L NC, 3/5 BM, CARDIAC DIET, ACHS, 1500 CC FLUID RESTRICTION, ROBITUSSIN AND NORCO GIVEN FOR COUGH AND ABDOMINAL PAIN X2, PATIENT SLEPT WELL, NO EVENTS OVERNIGHT
[2022-06-07 06:30] LABS: BASOPHILS ABSOLUTE AUTO 0.03 K/mm3 (0.00-0.23); BASOPHILS PERCENT AUTO 1 % (0-2); EOSINOPHILS ABSOLUTE AUTO 0.14 K/mm3 (0.00-0.68); EOSINOPHILS PERCENT AUTO 2 % (0-6); Hematocrit 40.8 % (33.0-51.0); Hemoglobin 12.4 g/dL (11.5-16.0); IMMATURE GRAN ABSOLUTE AUTO 0.01 K/mm3 (0.00-0.10); IMMATURE GRAN PERCENT AUTO 0 % (0-1); LYMPHOCYTES ABSOLUTE AUTO 1.41 K/mm3 (0.84-5.20); LYMPHOCYTES PERCENT AUTO 23 % (21-46); MONOCYTES ABSOLUTE AUTO 0.81 K/mm3 (0.16-1.47); MONOCYTES PERCENT AUTO 13 % (4-13); Mean Corpuscular HGB 29.2 pg (26.0-34.0); Mean Corpuscular HGB Conc 30.4 g/dL (31.5-36.5); Mean Corpuscular Volume 96 fL (80-100); Mean Platelet Volume 12.2 fL (9.1-12.4); NEUTROPHILS ABSOLUTE AUTO 3.72 K/mm3 (1.96-9.15); NEUTROPHILS PERCENT AUTO 61 % (41-73); Platelet Count 153 K/mm3 (150-400); RDW Standard Deviation 49.3 fL (35.1-46.3); Red Blood Cell Count 4.25 M/mm3 (3.80-5.20); White Blood Cell Count 6.12 K/mm3 (4.00-11.30)
[2022-06-07 06:36] LABS: Magnesium, Blood 2.2 mg/dL (1.6-2.4)
[2022-06-07 06:46] LABS: Albumin, Blood 1.8 g/dL (3.4-5.0); Anion Gap Unable to Calculate mmol/L (6-16); Blood Urea Nitrogen 43 mg/dL (8-24); Bun/Creatinine Ratio 51.7 (12.0-20.0); CO2, Blood 32 mmol/L (21-32); Calcium, Blood 8.2 mg/dL (8.5-10.1); Chloride, Blood 108 mmol/L (98-108); Creatinine, Blood 0.83 mg/dL (0.40-1.00); Glomerular Filtration Rate 79 (60-); Glucose, Blood 157 mg/dL (70-99); Phosphorus, Blood 3.9 mg/dL (2.5-4.9); Potassium, Blood 4.9 mmol/L (3.5-5.5); Sodium, Blood 139 mmol/L (136-145)
--- NOTE | 2022-06-07 19:43 | NUR ---
SHIFT SUMMARY PT REPORTS SHE HAD A GOOD DAY TODAY. REPORTED A BLOODY NOSE THIS AFTERNOON THAT SELF RESOLVED. HUMIDITY APPLIED TO O2 TO AID IN DRYNESS. LESS RESP DISTRESS THAN YESTERDAY WTIH MOVEMENT. SKIN FEELS LESS TAUT THAN YESTERDAY WELL.
--- NOTE | 2022-06-08 03:52 | NUR ---
SHIFT SUMMARY ADMITTED FOR ELEVATED TROPONINS. FULL CODE. PLAN IS DIURESE AND RT TX'S. 1500 ML FLUID RESTRICTION. ACHS CBG'S. STRICT I&O'S, DAILY WEIGHTS. BLE & ABDOMINAL EDEMA. CARDIAC DIET. A&O X4. RLQ PAIN FROM COUGHING. 2 LPM O2 VIA NC, ON RA @ BASELINE. INDEPENDENT TO THE BATHROOM. ON XARELTO. NO NEW CONCERNS THIS SHIFT
--- NOTE | 2022-06-08 13:07 | NUR ---
DISCHARGE NOTE- PT WAS TOLD SHE WAS GOING TO BE DISCHARGED, SHE REFUSED TO WAIT FOR THE DISCHARGE TO BE PLACED AND LLEFT BEFORE IT WAS COMPLETED. CALLED DR PADRON HOWEVER HE PLACED THE ORDER FOR DC MEDS ALREADY. PER DR YORK THE MEDS SHOULD BE FAXED AND THE PT SHOULD BE CALLED. CALLED THE NUMBER ON THE FACE SHEET AND COULD NOT REACH THE PT. CALLLED HER FRIEND ON THE FACE SHEET AND HE PROVIDED THE PT CELL PHONE NUMBER. CALLED THE CELL AND REACHED HER VOICEMAIL HOWEVER THE VOICEMAIL IS FULL SO NO MESSAGE COULD BE LEFT. MEDS WERE FAXED TO [facility] PER THE PT REQUEST PRIOR TO DISCHARGE. PT HAD A FAMILY MEMBER TAKE HER HOME, IV WAS DC'D PRIOR TO DISCHARGE.
[2022-06-08] MEDS ORDERED: GUAI600T33 PO (17:50)
[2022-06-08] MEDS ORDERED: BUME2 PO (17:50)
== END 2022-06-08 12:30 | disposition home or self-care (01) | DRG 280 ==
LOC: ER 14:30 → MEDS 14:31
PROVIDERS: Family Medicine; ADMIT Internal Medicine
DX: I11.0 Hypertensive heart disease with heart failure (principal); I21.A1 Myocardial infarction type 2; I50.33 Acute on chronic diastolic (congestive) heart failure; J96.01 Acute respiratory failure with hypoxia; N17.9 Acute kidney failure, unspecified; E78.5 Hyperlipidemia, unspecified; E11.42 Type 2 diabetes mellitus with diabetic polyneuropathy; F17.210 Nicotine dependence, cigarettes, uncomplicated; J44.9 Chronic obstructive pulmonary disease, unspecified; G89.29 Other chronic pain; Z88.5 Allergy status to narcotic agent; Z88.8 Allergy status to other drugs, medicaments and biological substances; Z91.038 Other insect allergy status; Z88.0 Allergy status to penicillin; Z79.899 Other long term (current) drug therapy; Z86.718 Personal history of other venous thrombosis and embolism; Z79.84 Long term (current) use of oral hypoglycemic drugs; Z79.02 Long term (current) use of antithrombotics/antiplatelets; Z79.01 Long term (current) use of anticoagulants; Z79.891 Long term (current) use of opiate analgesic; Z79.4 Long term (current) use of insulin; Z79.811 Long term (current) use of aromatase inhibitors; Z89.432 Acquired absence of left foot; Z90.49 Acquired absence of other specified parts of digestive tract; Z98.890 Other specified postprocedural states; Z71.6 Tobacco abuse counseling
CPT/HCPCS: 36415; 71046; 76770; 80048; 80053; 80069; 81001; 82570; 82947; 83036; 83735; 84145; 84300; 84484; 84540; 85025; 93306; 93970; 94640; 94664; 94760; 96374; 96375; 96376; 99285-25; A9270; G0378; J1815; J1940

== ENCOUNTER 2022-11-08 14:48 | Inpatient (IN) | payer OTHER ==
[~2022-11-08] VITALS: Ht 152.4 cm; Wt 98.8 kg
[~2022-11-08 14:48] MED LIST changes: +ACTOS30 MG PO; +BUME2 PO; +FURO20 PO; +GUAI600T33 PO; +POTCHL20ER PO
[2022-11-08 15:26] LABS: BASOPHILS ABSOLUTE AUTO 0.03 K/mm3 (0.00-0.23); BASOPHILS PERCENT AUTO 0 % (0-2); EOSINOPHILS ABSOLUTE AUTO 0.06 K/mm3 (0.00-0.68); EOSINOPHILS PERCENT AUTO 1 % (0-6); Hematocrit 50.6 % (33.0-51.0); Hemoglobin 15.7 g/dL (11.5-16.0); IMMATURE GRAN ABSOLUTE AUTO 0.02 K/mm3 (0.00-0.10); IMMATURE GRAN PERCENT AUTO 0 % (0-1); LYMPHOCYTES ABSOLUTE AUTO 1.85 K/mm3 (0.84-5.20); LYMPHOCYTES PERCENT AUTO 24 % (21-46); MONOCYTES PERCENT AUTO 8 % (4-13); Mean Corpuscular HGB 28.3 pg (26.0-34.0); Mean Corpuscular Volume 91 fL (80-100); Mean Platelet Volume 10.8 fL (9.1-12.4); NEUTROPHILS ABSOLUTE AUTO 5.27 K/mm3 (1.96-9.15); NEUTROPHILS PERCENT AUTO 67 % (41-73); Platelet Count 212 K/mm3 (150-400); RDW Coefficient Variation 14.3 % (11.7-14.2); Red Blood Cell Count 5.55 M/mm3 (3.80-5.20); White Blood Cell Count 7.83 K/mm3 (4.00-11.30)
[2022-11-08 15:34] LABS: Base Excess Venous 6.1 mmol/L
[2022-11-08 15:43] LABS: Albumin, Blood 1.6 g/dL (3.4-5.0); Albumin/Globulin Ratio 0.4 (0.8-1.8); Bilirubin, Total 0.2 mg/dL (0.1-1.0); Bun/Creatinine Ratio 29.3 (12.0-20.0); Creatinine, Blood 0.89 mg/dL (0.40-1.00); Globulin, Blood 4.1 g/dL (2.2-4.0); Magnesium, Blood 1.9 mg/dL (1.6-2.4); Potassium, Blood 4.5 mmol/L (3.5-5.5); Total Protein, Blood 5.7 g/dL (6.4-8.2)
[2022-11-08 18:44] VITALS: BP 173/79
--- NOTE | 2022-11-08 19:36 | NUR ---
PT ARRIEVED FROM ED AT 1830. PT WAS WET SO LINENS WHERE CHANGED AND PT HELPED TO BSC. PT EDUCATED ON POSSIBLE SOURCES OF IGNITION AND NO SMOIKING POLICY. PT GAVE PERMISSION FOR CIGGERETS AND HOUSEHOLD APPLIANCE INSTALLER TO BE LOCKED IN DRAWER. PT REMINDED THAT SHE WOULD BE GIVEN THEM BACK WHEN SHE WAS DC'D. PT ORIENTED TO ROOM. REPORT GIVEN TO SURVEY RESEARCH MANAGER NURSE. BED IN LOWEST POSITION AND CALL LIGHT IN REACH.
[2022-11-08 19:38] VITALS: BP 168/113
[2022-11-08 19:55] VITALS: BP 177/80
[2022-11-08 19:58] VITALS: BP 172/75
--- NOTE | 2022-11-08 23:52 | NUR ---
NOTIFY (LATE ENTRY) DR COPE WAS NOTIFIED OF ELEVATED BLOOD PRESSURE 172/75 AFTER IT WAS OBTAINED. TELEPHONE ORDER FOR HYDRALAZINE 10MG IV Q4HRS PRN SBP >180 READ BACK AND ENTERED INTO Admazely.
--- NOTE | 2022-11-08 23:54 | NUR ---
RN NOTE PT WAS ADMITTED FROM THE ER AT 1830HRS. MS LONG HAS SOB ON MINIMAL EXERTION AND EDEMA TO HER LEFT ARM, LEFT HAND, LEFT BREAST, TRUNK AND BILATERAL LOWER EXTREMITIES. CALF MEASURED AT 17.5" AND JAN HOSE APPLIED. PT ON 1.5L N/C AT TIME OF REPORT AND HAS STAYED ON SAME. + SMOKER, CIGARETTES AND ASSISTANT BRANCH OPERATIONS MANAGER LOCKED UP IN PT DRAWER. PT ABLE TO STAND AND TRANSFER TO BSC WITH SOME SOB AND MINIMAL ASSISTANCE. PT LIVES ALONE IN A TRAILER AND SAID SHE MANAGES TO TAKE CARE OF HERSELF AT HOME. BLOOD PRESSURE WAS ELEVATED, SEE MD CALL. HYDRALAZINE DISCONTINUE ON RECOMMENDATION OF CESAR PHARMACIST, THERE IS A CROSS REACTION WITH PROCAINE LISTED ALLERGY. ON TELEMETRY SR, PACS, ST RUNS PER SARI SAFETY AND SKILL BASED PAY MANAGER, NO CALLS FROM SAFETY AND SKILL BASED PAY MANAGER THIS SHIFT, BED LOW, CALL LIGHT IN REACH.
--- NOTE | 2022-11-09 00:33 | NUR ---
RN NOTE ADDN VOICE MAIL LEFT FOR NURSES' ASSOCIATION COUNSELOR CONSULT
[2022-11-09 04:25] VITALS: BP 190/100
--- NOTE | 2022-11-09 04:37 | NUR ---
MD CALL MANUAL BLOOD PRESSURE 190/100. PT DENIES CHEST PAIN OR ANY NEW SYMPTOMS. DR DUMONT CALLED AND NOTIFIED. HE IS ENTERING NEW MEDICATION ORDERS.
[2022-11-09 04:50] VITALS: BP 178/86
[2022-11-09 04:50] LABS: BASOPHILS ABSOLUTE AUTO 0.01 K/mm3 (0.00-0.23); BASOPHILS PERCENT AUTO 0 % (0-2); EOSINOPHILS PERCENT AUTO 0 % (0-6); Hematocrit 50.1 % (33.0-51.0); Hemoglobin 15.4 g/dL (11.5-16.0); IMMATURE GRAN ABSOLUTE AUTO 0.03 K/mm3 (0.00-0.10); IMMATURE GRAN PERCENT AUTO 0 % (0-1); LYMPHOCYTES ABSOLUTE AUTO 0.86 K/mm3 (0.84-5.20); LYMPHOCYTES PERCENT AUTO 10 % (21-46); MONOCYTES PERCENT AUTO 2 % (4-13); Mean Corpuscular HGB 28.2 pg (26.0-34.0); Mean Corpuscular HGB Conc 30.7 g/dL (31.5-36.5); Mean Corpuscular Volume 92 fL (80-100); Mean Platelet Volume 11.5 fL (9.1-12.4); NEUTROPHILS ABSOLUTE AUTO 7.15 K/mm3 (1.96-9.15); NEUTROPHILS PERCENT AUTO 87 % (41-73); Platelet Count 216 K/mm3 (150-400); RDW Coefficient Variation 14.3 % (11.7-14.2); RDW Standard Deviation 47.7 fL (35.1-46.3); Red Blood Cell Count 5.46 M/mm3 (3.80-5.20); White Blood Cell Count 8.25 K/mm3 (4.00-11.30)
[2022-11-09 05:08] LABS: International Normalized Ratio 0.93; Prothrombin Time Results 9.8 Sec (9.7-11.5)
[2022-11-09 05:11] LABS: Albumin/Globulin Ratio 0.5 (0.8-1.8); Bilirubin, Total 0.4 mg/dL (0.1-1.0); Bun/Creatinine Ratio 34.8 (12.0-20.0); Calcium, Blood 8.6 mg/dL (8.5-10.1); Creatinine, Blood 0.81 mg/dL (0.40-1.00); Globulin, Blood 4.2 g/dL (2.2-4.0); Magnesium, Blood 1.9 mg/dL (1.6-2.4); Potassium, Blood 4.3 mmol/L (3.5-5.5); Total Protein, Blood 6.2 g/dL (6.4-8.2)
--- NOTE | 2022-11-09 05:12 | NUR ---
SHIFT SUMMARY MS LONG HAS SOME SOB ON EXERTION ON 1-5-2L O2 N/C. UP TO BEDSIDE COMMODE WITH 1 PERSON ASSISTANCE. BLOOD PRESSURE ELEVATED THIS MORNING TREATED WITH 10MG IV HYDRALAZINE, BP DOWN TO 170S SYSTOLIC SHORTLY AFTER HYDRALAZINE DOSE. DENIES ANY CHEST PAIN. ON TELEMETRY SR WITH PACS, NO CALLS FROM DIRECTOR INSURANCE OVERNIGHT. ON ADMISSION MS LONG REPORTED THAT SHE IS NO LONGER TAKING PLAVIX OR XARELTO. BED LOW, BED ALARM ON THOUGH PT CALLS APPROPRIATELY, CALL LIGHT IN REACH.
[2022-11-09 06:06] VITALS: BP 140/66
--- NOTE | 2022-11-09 06:07 | NUR ---
RN NOTE CALL FROM FIREWORKS ASSEMBLY SUPERVISOR THAT PT HAD BRIEF EPISODE ST 146, THEN BACK TO SR. MS LONG WAS SLEEPING IN BED, VITAL SIGNS CHECKED AND HR 80S BP MUCH IMPROVED. MS LONG DENIED ANY NEW SYMPTOMS AND NO CHEST PAIN.
--- NOTE | 2022-11-09 06:30 | NUR ---
NOTIFY CALL FROM CHIN STRAP CUTTER THAT PT HAD ~5 SECONDS OF SVT 170BPM, NOW BACK TO SR. PT RESTING IN BED. DR DUMONT CALLED AND NOTIFIED. NO NEW ORDERS.
[2022-11-09 07:25] VITALS: BP 158/97
[2022-11-09 16:01] VITALS: BP 145/64
--- NOTE | 2022-11-09 19:23 | NUR ---
SHIFT SUMMARY 304 PT A&OX4 AND PLEASANT. PT VERY TALKATIVE AND HAPPY. PT HAS BEEN INDPENDENT TO BSC. PT SATING GREATER THAN 90% ON 1.5L OF OXYGEN. PT STATES FEELING BETTER TODAY AND LESS SOB. BP'S ARE A BIT ELEVATED. PT STARTED ON HOME DOSE OF LISINIPRIL TODAY. DIETITIAN WAS IN TO TALK WITH PT TODAY. NO C/O PAIN. BED IN LOWEST POSITION AND CALL LIGHT IN REACH.
[2022-11-09 19:24] VITALS: BP 158/80
[2022-11-10 04:25] VITALS: BP 170/81
[2022-11-10 04:35] VITALS: BP 114/99
[2022-11-10 05:01] LABS: BASOPHILS ABSOLUTE AUTO 0.03 K/mm3 (0.00-0.23); BASOPHILS PERCENT AUTO 0 % (0-2); EOSINOPHILS ABSOLUTE AUTO 0.03 K/mm3 (0.00-0.68); EOSINOPHILS PERCENT AUTO 0 % (0-6); Hematocrit 45.8 % (33.0-51.0); Hemoglobin 14.5 g/dL (11.5-16.0); IMMATURE GRAN ABSOLUTE AUTO 0.05 K/mm3 (0.00-0.10); IMMATURE GRAN PERCENT AUTO 0 % (0-1); LYMPHOCYTES ABSOLUTE AUTO 2.93 K/mm3 (0.84-5.20); LYMPHOCYTES PERCENT AUTO 22 % (21-46); MONOCYTES ABSOLUTE AUTO 0.89 K/mm3 (0.16-1.47); MONOCYTES PERCENT AUTO 7 % (4-13); Mean Corpuscular HGB 28.9 pg (26.0-34.0); Mean Corpuscular HGB Conc 31.7 g/dL (31.5-36.5); Mean Corpuscular Volume 91 fL (80-100); Mean Platelet Volume 11.6 fL (9.1-12.4); NEUTROPHILS ABSOLUTE AUTO 9.43 K/mm3 (1.96-9.15); NEUTROPHILS PERCENT AUTO 71 % (41-73); Platelet Count 206 K/mm3 (150-400); RDW Coefficient Variation 14.3 % (11.7-14.2); RDW Standard Deviation 47.4 fL (35.1-46.3); Red Blood Cell Count 5.02 M/mm3 (3.80-5.20); White Blood Cell Count 13.36 K/mm3 (4.00-11.30)
[2022-11-10 05:39] LABS: Albumin, Blood 2.3 g/dL (3.4-5.0); Albumin/Globulin Ratio 0.7 (0.8-1.8); Bilirubin, Total 0.3 mg/dL (0.1-1.0); Bun/Creatinine Ratio 40.7 (12.0-20.0); Calcium, Blood 8.3 mg/dL (8.5-10.1); Creatinine, Blood 0.86 mg/dL (0.40-1.00); Globulin, Blood 3.3 g/dL (2.2-4.0); Potassium, Blood 3.9 mmol/L (3.5-5.5); Total Protein, Blood 5.6 g/dL (6.4-8.2)
--- NOTE | 2022-11-10 06:23 | NUR ---
SHIFT SUMMARY AT 2007, PT HAD A 5 BEAT RUN OF VTACH, PT WAS ASYMPTOMATIC. LINDA MAURER NOTIFIEED, NO NEW ORDERS. PRN NORCO GIVEN X1 WITH POSITIVE EFFECT. Q1H FIRE SAFTEY CHEKS COMPLETED, NO IGNITION SOURCES FOUMD
[2022-11-10 08:03] VITALS: BP 141/73
--- NOTE | 2022-11-10 09:00 | NUR ---
pt sitting up on the side of the bed a/ox4, in good spirits, pleasant and cooperative with care, follows commands well, denies pain at this time, lungs are clear, a bit dim in bases, removed 02, sats remained at 96%, no cough noted, hrr, tele in place running sr per monitor, see strip, 3+ edema noted to b/l niya, she reports it is in her breast as well, cap refill <3sec vs stable, afebrile, iv site to rfa is clear and patent, btx4, abd flat soft nontender, voids without diff, skin c/w/d, maew, ren, call light in reach.
[2022-11-10 15:49] VITALS: BP 124/72
[2022-11-10 16:54] LABS: Calcium, Blood 8.6 mg/dL (8.5-10.1); Creatinine, Blood 0.98 mg/dL (0.40-1.00); Magnesium, Blood 2.2 mg/dL (1.6-2.4); Potassium, Blood 4.3 mmol/L (3.5-5.5)
--- NOTE | 2022-11-10 18:26 | NUR ---
pt had an episode of afib rvr got up to 160 briefly, did ekg and pushed 5mg iv lopressor, she slowly slowed down and finally converted back to sr. pt asymtomatic durring, but states she could feel when the rate came down, no further changes this shift. call light in reach.
[2022-11-10 19:52] VITALS: BP 163/66
[2022-11-11 04:02] VITALS: BP 164/81
--- NOTE | 2022-11-11 06:30 | NUR ---
PT SITTING UP TO SIDE OF BED DURING BEDSIDE REPORT- PT REQUESTED SNACK AFTER CBG DONE- PT HAD MEAT AND CHEESE AND DENIED NAUSEA OR PAIN- PT USES CALL LIGHT APPROPRIATELY, PT SLEPT T/O SHIFT WITHOUT C/O SOB-
[2022-11-11 07:28] VITALS: BP 176/85
--- NOTE | 2022-11-11 07:37 | NUR ---
pt sitting up in bed awake, a/ox4, pleasant and cooperative with care, follows commands well, reports a good night, slept well, but has a pain in her right side of her abd that is really painful, states it started around 0730, hurt that area to take a deep breath, lungs are clear in upper [place], dim with fine crackles to bases, resp even and unlabored, no cough noted, on 2 liters at this time, hrr, tele in place running sr per monitor, see strip, 3+ edema noted to b/l le up to hips, skin is tight but improved from yesterday, she reports it went into her left breast as well, piv to rwrist/fa, site is clear and patent, btx4, reports reg bm's, voids without diff, skin c/w/d, 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
[2022-11-11 15:20] VITALS: BP 194/80
--- NOTE | 2022-11-11 18:21 | NUR ---
pt in good spirits all day, no cardiac events today, increased her lasix, no further changes this shift. call light in reach.
[2022-11-11 19:14] VITALS: BP 174/77
[2022-11-11 21:29] VITALS: BP 147/86
[2022-11-12 04:29] VITALS: BP 174/65
[2022-11-12 05:00] VITALS: BP 164/67
[2022-11-12 05:12] LABS: BASOPHILS ABSOLUTE AUTO 0.03 K/mm3 (0.00-0.23); BASOPHILS PERCENT AUTO 0 % (0-2); EOSINOPHILS ABSOLUTE AUTO 0.06 K/mm3 (0.00-0.68); EOSINOPHILS PERCENT AUTO 1 % (0-6); Hematocrit 45.2 % (33.0-51.0); Hemoglobin 14.2 g/dL (11.5-16.0); IMMATURE GRAN ABSOLUTE AUTO 0.04 K/mm3 (0.00-0.10); IMMATURE GRAN PERCENT AUTO 0 % (0-1); LYMPHOCYTES ABSOLUTE AUTO 3.08 K/mm3 (0.84-5.20); LYMPHOCYTES PERCENT AUTO 29 % (21-46); MONOCYTES ABSOLUTE AUTO 1.05 K/mm3 (0.16-1.47); MONOCYTES PERCENT AUTO 10 % (4-13); Mean Corpuscular HGB 28.8 pg (26.0-34.0); Mean Corpuscular HGB Conc 31.4 g/dL (31.5-36.5); Mean Corpuscular Volume 92 fL (80-100); Mean Platelet Volume 12.2 fL (9.1-12.4); NEUTROPHILS ABSOLUTE AUTO 6.26 K/mm3 (1.96-9.15); NEUTROPHILS PERCENT AUTO 59 % (41-73); Platelet Count 192 K/mm3 (150-400); RDW Standard Deviation 46.7 fL (35.1-46.3); Red Blood Cell Count 4.93 M/mm3 (3.80-5.20); White Blood Cell Count 10.52 K/mm3 (4.00-11.30)
[2022-11-12 06:03] LABS: Bun/Creatinine Ratio 57.7 (12.0-20.0); Calcium, Blood 8.6 mg/dL (8.5-10.1); Creatinine, Blood 1.11 mg/dL (0.40-1.00); Magnesium, Blood 1.9 mg/dL (1.6-2.4); Potassium, Blood 4.2 mmol/L (3.5-5.5)
--- NOTE | 2022-11-12 06:19 | NUR ---
PT SITTING UP VISITING WITH FAMILY DURING BEDSIDE REPORT- PT REPORTS HAVING TO URINATE SEVERAL TIMES SINCE THE INCREASE OF DIURETICS- PT AMBULATES TO BR WITHOUT PROBLEMS, REPORT THAT PT HAD INCREASE IN ME AND 4 SECOND RUN OF SVT- PT DENIED PAIN/SOB, BED LOW POSITION, CALL LIGHT WITHIN REACH
[2022-11-12 07:21] VITALS: BP 181/70
[2022-11-12 15:13] VITALS: BP 191/86
--- NOTE | 2022-11-12 18:19 | NUR ---
NURSE NOTE TELE MONITOR NOTIFIED THIS RN OF AFIB RATE IN 130S. DR RAMEY NOTIFIED. OBTAINED ORDERS AND MEDICATED PER EMAR.
[2022-11-12 19:48] VITALS: BP 130/90
--- NOTE | 2022-11-12 20:37 | NUR ---
NURSE NOTE HX A FIB, HR MONITORED - REPORTED BY TELE TECHRUNNING STEADY IN THE 150'-60'S. DR LINDSEY NOTIFIED AND WILL REVIEW CHART AND ADDRESS HR, ORDER MED
[2022-11-13 02:34] VITALS: BP 178/66
[2022-11-13 04:27] LABS: BASOPHILS ABSOLUTE AUTO 0.04 K/mm3 (0.00-0.23); BASOPHILS PERCENT AUTO 0 % (0-2); EOSINOPHILS ABSOLUTE AUTO 0.09 K/mm3 (0.00-0.68); EOSINOPHILS PERCENT AUTO 1 % (0-6); Hematocrit 43.8 % (33.0-51.0); Hemoglobin 13.7 g/dL (11.5-16.0); IMMATURE GRAN ABSOLUTE AUTO 0.03 K/mm3 (0.00-0.10); IMMATURE GRAN PERCENT AUTO 0 % (0-1); LYMPHOCYTES ABSOLUTE AUTO 2.82 K/mm3 (0.84-5.20); LYMPHOCYTES PERCENT AUTO 29 % (21-46); MONOCYTES ABSOLUTE AUTO 1.01 K/mm3 (0.16-1.47); MONOCYTES PERCENT AUTO 11 % (4-13); Mean Corpuscular HGB 28.7 pg (26.0-34.0); Mean Corpuscular HGB Conc 31.3 g/dL (31.5-36.5); Mean Corpuscular Volume 92 fL (80-100); NEUTROPHILS ABSOLUTE AUTO 5.64 K/mm3 (1.96-9.15); NEUTROPHILS PERCENT AUTO 59 % (41-73); Platelet Count 179 K/mm3 (150-400); RDW Coefficient Variation 13.9 % (11.7-14.2); RDW Standard Deviation 47.1 fL (35.1-46.3); Red Blood Cell Count 4.77 M/mm3 (3.80-5.20); White Blood Cell Count 9.63 K/mm3 (4.00-11.30)
[2022-11-13 04:45] LABS: Bun/Creatinine Ratio 70.9 (12.0-20.0); Calcium, Blood 8.2 mg/dL (8.5-10.1); Creatinine, Blood 1.17 mg/dL (0.40-1.00); Magnesium, Blood 1.8 mg/dL (1.6-2.4); Potassium, Blood 4.2 mmol/L (3.5-5.5)
--- NOTE | 2022-11-13 05:37 | NUR ---
END OF SHIFT SUMMARY 0234: PT's BP ELEVATED AT 178/66 AND PULSE 73. PT STATES THAT THIS IS NORMAL FOR HER. PRN HYDRALAZINE GIVEN D/T HIGH BP. NO C/O CHEST PAIN, SHORTNESS OF BREATH OR HALL. 0545: PT CURRENTLY SLEEPING PEACEFULLY. PT ON 3L VIA NC, HOB ELEVATED, PT BREATHING EASY AND UNLABORED. PT FOLLOWING THE 1500 FLUID RESTRICTION ORDER. PT A&O X4, PT ABLE TO MAKE NEEDS KNOWN. CALL LIGHT WITHIN REACH. WCTM. LIGHT WTHIN REACH, WCTM.
[2022-11-13 07:46] VITALS: BP 123/57
[2022-11-13 15:24] VITALS: BP 177/77
--- NOTE | 2022-11-13 17:30 | NUR ---
SHIFT SUMMARY PATIENT IS ALERT AND ORIENTED. PATIENT HAS HAD NO ACUTE EVENTS THIS SHIFT. PATIENT HAS HAD ONE EVENT ON TELE, TACHY 120S THEN FELL QUICKLY. PATIENT HAS HAD NO COMPLAINTS OF PAIN, NAUSEA, SOB OR VOMITTING. ABX AND ALBUMIN INFUSED ORDERED. BED IN LOCKED AND LOWEST POSITION. CALL LIGHT IN PLACE. WILL MONITOR UNTIL SHIFT.
[2022-11-13 19:33] VITALS: BP 203/80
[2022-11-13 22:15] VITALS: BP 175/68
[2022-11-14 02:27] VITALS: BP 197/66
[2022-11-14 04:56] VITALS: BP 157/67
[2022-11-14 04:56] LABS: BASOPHILS ABSOLUTE AUTO 0.04 K/mm3 (0.00-0.23); BASOPHILS PERCENT AUTO 0 % (0-2); EOSINOPHILS ABSOLUTE AUTO 0.07 K/mm3 (0.00-0.68); EOSINOPHILS PERCENT AUTO 1 % (0-6); Hematocrit 44.7 % (33.0-51.0); Hemoglobin 13.8 g/dL (11.5-16.0); IMMATURE GRAN ABSOLUTE AUTO 0.03 K/mm3 (0.00-0.10); IMMATURE GRAN PERCENT AUTO 0 % (0-1); LYMPHOCYTES ABSOLUTE AUTO 2.63 K/mm3 (0.84-5.20); LYMPHOCYTES PERCENT AUTO 26 % (21-46); MONOCYTES ABSOLUTE AUTO 1.05 K/mm3 (0.16-1.47); MONOCYTES PERCENT AUTO 10 % (4-13); Mean Corpuscular HGB 28.6 pg (26.0-34.0); Mean Corpuscular HGB Conc 30.9 g/dL (31.5-36.5); Mean Corpuscular Volume 93 fL (80-100); Mean Platelet Volume 12.3 fL (9.1-12.4); NEUTROPHILS ABSOLUTE AUTO 6.43 K/mm3 (1.96-9.15); NEUTROPHILS PERCENT AUTO 63 % (41-73); Platelet Count 181 K/mm3 (150-400); RDW Coefficient Variation 13.8 % (11.7-14.2); RDW Standard Deviation 46.7 fL (35.1-46.3); Red Blood Cell Count 4.83 M/mm3 (3.80-5.20); White Blood Cell Count 10.25 K/mm3 (4.00-11.30)
--- NOTE | 2022-11-14 05:11 | NUR ---
END OF SHIFT SUMMARY PT PLEASANT AND COOPERATIVE WITH CARE PROVIDED. PT SLEPT ON AND OFF THROUGHOUT THE SHIFT. CONTINUING TO MONITOR I's&O's. PT's CBG AT HS WAS 327. PT HYPERTENSIVE, BUT ASYMPTOMATIC PT DENIED HAVING CHEST PAIN, SHORTNESS OF BREATH OR A HEADACHE. THIS MORNING PT's BP WAS 157/67 AND HR 65, OXYGEN SAT WAS 96% ON 1L VIA NC. NO C/O PAIN. PT HAPPY AND LAUGHING WHILE AWAKE WATCHING TV THIS MORNING. CALL LIGHT WITHIN REACH, WCTM.
[2022-11-14 05:26] LABS: Creatinine, Blood 1.05 mg/dL (0.40-1.00); Potassium, Blood 4.1 mmol/L (3.5-5.5)
[2022-11-14 07:28] VITALS: BP 163/61
[2022-11-14 16:15] VITALS: BP 183/80
--- NOTE | 2022-11-14 16:16 | NUR ---
SHIFT SUMMARY PATIENT IS ALERT AND ORIENTED. PATIENT HAS HAD NO ACUTE EVENTS THIS SHIFT. VITAL SIGNS REVIEWED. PATIENT HAS NOT COMPLAINED OF PAIN, NAUSEA, SOB OR VOMITTING THIS SHIFT. PATIENT IS DIRURESING WELL. PATIENT IS COMPLAINT WITH FLUID RESTRICTION. BED IN LOCKED AND LOWEST POSITION. CALL LIGHT IN PLACE. WILL MONITOR UNTIL SHIFT SUMMARY.
--- NOTE | 2022-11-14 18:49 | NUR ---
NURSE NOTE THIS RN CALLED DR LINDSEY. PTS HR HAS BEEN ELEVATED FOR EXTENDED PERIOD. DR ORDERED IV METOROLOL. WILL RELAY THIS ORDER TO NOC SHIFT.
[2022-11-14 21:31] VITALS: BP 176/108
[2022-11-14 22:25] VITALS: BP 199/74
--- NOTE | 2022-11-15 00:07 | NUR ---
PT ALERT AND ORIENTED, PLEASANT AND COOPERATIVE WITH CARE PROVIDED. PT'S RECENT BP ELEVATED 199/74, HR 71. PRN HYDRALAZINE ADMINISTERED FOR ELEVATED BP. WCTM. PT DENIED ANY CHEST PAIN, SHORTNESS OF BREATH, AND NO HEADACHE PRESENT UPON ASSESSMENT. PT'S OXYGEN SAT AT 96% ON 1L VIA NC. RESP EVEN AND UNLABORED. PT AMBULATING INDEPENDENTLY WITH A STEADY GAIT WITH BATHROOM PRIVILAGES. PT CALLS APPROPRIATELY, CALL LIGHT WITHIN REACH.
--- NOTE | 2022-11-15 04:04 | NUR ---
END OF SHIFT SUMMARY PT APPEARS TO BE SLEEPING PEACEFULLY. UNEVENTFUL NIGHT, NO NOTIFICATIONS FROM NUCLEAR SPECTROSCOPIST. PT SINUS RHYTHM IN THE 80's. MORNING VS STABLE. PT DENIED PAIN. DYSPNEA ON EXERTION NOTED WHILE PT AMBULATES TO BATHROOM. PT ON 1L VIA NC. OXYGEN SAT 91%. PT ABLE TO MAKE NEEDS KNOWN. PT COMPLIANT WITH FLUID RESTRICTION. CALL LIGHT WITHIN REACH, WCTM.
[2022-11-15 04:23] VITALS: BP 128/64
[2022-11-15 04:47] LABS: BASOPHILS ABSOLUTE AUTO 0.03 K/mm3 (0.00-0.23); BASOPHILS PERCENT AUTO 0 % (0-2); EOSINOPHILS ABSOLUTE AUTO 0.09 K/mm3 (0.00-0.68); EOSINOPHILS PERCENT AUTO 1 % (0-6); Hematocrit 45.3 % (33.0-51.0); Hemoglobin 13.9 g/dL (11.5-16.0); IMMATURE GRAN ABSOLUTE AUTO 0.04 K/mm3 (0.00-0.10); IMMATURE GRAN PERCENT AUTO 0 % (0-1); LYMPHOCYTES ABSOLUTE AUTO 3.02 K/mm3 (0.84-5.20); LYMPHOCYTES PERCENT AUTO 26 % (21-46); MONOCYTES ABSOLUTE AUTO 1.28 K/mm3 (0.16-1.47); MONOCYTES PERCENT AUTO 11 % (4-13); Mean Corpuscular HGB 28.5 pg (26.0-34.0); Mean Corpuscular HGB Conc 30.7 g/dL (31.5-36.5); Mean Corpuscular Volume 93 fL (80-100); Mean Platelet Volume 12.8 fL (9.1-12.4); NEUTROPHILS ABSOLUTE AUTO 7.36 K/mm3 (1.96-9.15); NEUTROPHILS PERCENT AUTO 62 % (41-73); Platelet Count 187 K/mm3 (150-400); RDW Coefficient Variation 13.8 % (11.7-14.2); RDW Standard Deviation 46.5 fL (35.1-46.3); Red Blood Cell Count 4.88 M/mm3 (3.80-5.20); White Blood Cell Count 11.82 K/mm3 (4.00-11.30)
[2022-11-15 05:09] LABS: Albumin, Blood 3.4 g/dL (3.4-5.0); Albumin/Globulin Ratio 1.4 (0.8-1.8); Bilirubin, Total 0.3 mg/dL (0.1-1.0); Bun/Creatinine Ratio 74.8 (12.0-20.0); Calcium, Blood 9.3 mg/dL (8.5-10.1); Creatinine, Blood 1.23 mg/dL (0.40-1.00); Globulin, Blood 2.4 g/dL (2.2-4.0); Potassium, Blood 4.7 mmol/L (3.5-5.5); Total Protein, Blood 5.8 g/dL (6.4-8.2)
--- NOTE | 2022-11-15 07:02 | NUR ---
TELE NOTE HAND BOBBIN CLEANER CALLED RE "TACHY MIRI SYNDROME". DR SEN NOTIFIED, EKG ORDERED. EKG: SINUS RHYTHM WITH SHORT OR, OTHERWISE NOMAL ECG.
[2022-11-15 07:27] VITALS: BP 122/90
[2022-11-15 16:09] VITALS: BP 157/66
--- NOTE | 2022-11-15 18:51 | NUR ---
SHIFT SUMMARY PT AXO PLEASANT AND COOPERATIVE WITH CARE. VSS THOUGH BP ELEVATED AT 157/66, MEDICATED PER EMAR. CBG ELEVATED, DR CRUZ AWARE, NEW ORDERS INITIATED. IV PATENT AND INFUSING PER EMAR. PT UP AD JL IN ROOM. PT DENIES SOB AND N/V. MEDICATED FOR PAIN PER EMAR WITH SCHEDULED GABAPENTIN. BED IN LOW POSITION, CALL LIGHT WITHIN REACH. PT NSR ON TELE RATE 60-70'S. DR CRUZ AWARE OF THE RHYTHM CHANGE ON TELE AT ABOUT 0600.
[2022-11-15 19:29] VITALS: BP 164/68
[2022-11-16 03:56] VITALS: BP 148/60
[2022-11-16 05:18] LABS: BASOPHILS ABSOLUTE AUTO 0.03 K/mm3 (0.00-0.23); BASOPHILS PERCENT AUTO 0 % (0-2); EOSINOPHILS ABSOLUTE AUTO 0.05 K/mm3 (0.00-0.68); EOSINOPHILS PERCENT AUTO 1 % (0-6); Hematocrit 43.6 % (33.0-51.0); Hemoglobin 13.5 g/dL (11.5-16.0); IMMATURE GRAN ABSOLUTE AUTO 0.04 K/mm3 (0.00-0.10); IMMATURE GRAN PERCENT AUTO 0 % (0-1); LYMPHOCYTES ABSOLUTE AUTO 2.99 K/mm3 (0.84-5.20); LYMPHOCYTES PERCENT AUTO 27 % (21-46); MONOCYTES ABSOLUTE AUTO 0.97 K/mm3 (0.16-1.47); MONOCYTES PERCENT AUTO 9 % (4-13); Mean Corpuscular HGB 28.7 pg (26.0-34.0); Mean Corpuscular Volume 93 fL (80-100); Mean Platelet Volume 12.9 fL (9.1-12.4); NEUTROPHILS ABSOLUTE AUTO 6.95 K/mm3 (1.96-9.15); NEUTROPHILS PERCENT AUTO 63 % (41-73); Platelet Count 184 K/mm3 (150-400); RDW Coefficient Variation 13.7 % (11.7-14.2); RDW Standard Deviation 47.2 fL (35.1-46.3); White Blood Cell Count 11.03 K/mm3 (4.00-11.30)
[2022-11-16 06:16] LABS: Albumin, Blood 3.8 g/dL (3.4-5.0); Albumin/Globulin Ratio 1.5 (0.8-1.8); Bilirubin, Total 0.4 mg/dL (0.1-1.0); Bun/Creatinine Ratio 81.3 (12.0-20.0); Creatinine, Blood 1.39 mg/dL (0.40-1.00); Globulin, Blood 2.6 g/dL (2.2-4.0); Potassium, Blood 4.7 mmol/L (3.5-5.5); Total Protein, Blood 6.4 g/dL (6.4-8.2)
[2022-11-16 07:25] VITALS: BP 133/58
[2022-11-16] MEDS ORDERED: METO2.5 PO (12:07)
[2022-11-16] MEDS ORDERED: METO25 PO (12:08)
[2022-11-16] MEDS ORDERED: XARELTO20 MG PO (12:09)
[2022-11-16] MEDS ORDERED: Prednisone10 MG PO (12:09)
[2022-11-16] MEDS ORDERED: SPIR25 PO (12:10)
--- NOTE | 2022-11-16 14:03 | NUR ---
DISCHARGE SUMMARY PT DISCHARGED TO HOME. PT LEFT ROOM PRIOR TO THIS NOTE VIA WHEELCHAIR WITH BAFFLE MOUNTER ESCORT. PT EDUCATED ON ALL DISCHARGE INSTRUCTIONS, ALL QUESTIONS ANSWERED. PT AGREES TO TAKE MEDICATIONS PRESCRIBED AND TO FOLLOW UP WITH PCP. PT ALSO AGREES TO MONITOR AND RESTRICT FLUID INTAKE AND MONITOR CBG. IV DC'D AND BELONGINGS RETURNED
== END 2022-11-16 13:11 | disposition home or self-care (01) | DRG 291 ==
LOC: ER 14:48 → MEDS 16:42 → ENPENDDIS 11-16 11:27 → MEDS 11-16 13:11
PROVIDERS: Family Medicine; Hospitalist; Internal Medicine; Student in an Organized Health Care Education/Training Program; ADMIT Family Medicine
PROC: 5A0935A Assistance with Respiratory Ventilation, Less than 24 Consecutive Hours, High Flow/Velocity Cannula (ICD-10-PCS; principal; 2022-11-08)
DX: I11.0 Hypertensive heart disease with heart failure (principal); J96.01 Acute respiratory failure with hypoxia; Z68.41 Body mass index [BMI] 40.0-44.9, adult; J44.1 Chronic obstructive pulmonary disease with (acute) exacerbation; I50.32 Chronic diastolic (congestive) heart failure; E11.42 Type 2 diabetes mellitus with diabetic polyneuropathy; I48.0 Paroxysmal atrial fibrillation; E66.9 Obesity, unspecified; E78.5 Hyperlipidemia, unspecified; E88.09 Other disorders of plasma-protein metabolism, not elsewhere classified; E11.51 Type 2 diabetes mellitus with diabetic peripheral angiopathy without gangrene; F17.200 Nicotine dependence, unspecified, uncomplicated; Z91.038 Other insect allergy status; Z88.0 Allergy status to penicillin; Z88.5 Allergy status to narcotic agent; Z88.6 Allergy status to analgesic agent; Z88.8 Allergy status to other drugs, medicaments and biological substances; Z98.890 Other specified postprocedural states; Z79.4 Long term (current) use of insulin; Z79.899 Other long term (current) drug therapy; Z86.718 Personal history of other venous thrombosis and embolism; Z79.01 Long term (current) use of anticoagulants
CPT/HCPCS: 36415; 71045; 76705; 80048; 80053; 82803; 82947; 83735; 83880; 84100; 84484; 85025; 85610; 93005; 93010; 93971; 94640; 94664; 94760; 96374; 96375; 96376; 99285-25; A9270; J0360; J1815; J1940; J2930; J7050; J7512; P9047

== ENCOUNTER 2023-02-02 15:40 | Inpatient (IN) | payer OTHER ==
[~2023-02-02] VITALS: Ht 160 cm; Wt 89.4 kg
[~2023-02-02 15:40] MED LIST changes: +METO2.5 PO; +METO25 PO; +Prednisone10 MG PO; +SPIR25 PO; +XARELTO20 MG PO
[2023-02-02 16:27] LABS: BASOPHILS ABSOLUTE AUTO 0.03 K/mm3 (0.00-0.23); BASOPHILS PERCENT AUTO 1 % (0-2); EOSINOPHILS ABSOLUTE AUTO 0.06 K/mm3 (0.00-0.68); EOSINOPHILS PERCENT AUTO 1 % (0-6); Hematocrit 41.1 % (33.0-51.0); Hemoglobin 12.5 g/dL (11.5-16.0); IMMATURE GRAN ABSOLUTE AUTO 0.02 K/mm3 (0.00-0.10); IMMATURE GRAN PERCENT AUTO 0 % (0-1); LYMPHOCYTES PERCENT AUTO 33 % (21-46); MONOCYTES ABSOLUTE AUTO 0.59 K/mm3 (0.16-1.47); MONOCYTES PERCENT AUTO 9 % (4-13); Mean Corpuscular HGB 28.3 pg (26.0-34.0); Mean Corpuscular HGB Conc 30.4 g/dL (31.5-36.5); Mean Corpuscular Volume 93 fL (80-100); Mean Platelet Volume 12.3 fL (9.1-12.4); NEUTROPHILS ABSOLUTE AUTO 3.56 K/mm3 (1.96-9.15); NEUTROPHILS PERCENT AUTO 56 % (41-73); Platelet Count 146 K/mm3 (150-400); RDW Coefficient Variation 14.6 % (11.7-14.2); RDW Standard Deviation 49.5 fL (35.1-46.3); Red Blood Cell Count 4.42 M/mm3 (3.80-5.20); White Blood Cell Count 6.36 K/mm3 (4.00-11.30)
[2023-02-02 16:50] LABS: Albumin, Blood 1.9 g/dL (3.4-5.0); Albumin/Globulin Ratio 0.5 (0.8-1.8); Bilirubin, Total 0.2 mg/dL (0.1-1.0); Bun/Creatinine Ratio 30.2 (12.0-20.0); Calcium, Blood 7.9 mg/dL (8.5-10.1); Creatinine, Blood 1.39 mg/dL (0.40-1.00); Potassium, Blood 4.7 mmol/L (3.5-5.5); Total Protein, Blood 5.9 g/dL (6.4-8.2)
[2023-02-02] MEDS ORDERED: Norvasc2.5 MG PO (16:52)
[2023-02-02 19:14] LABS: Base Excess Venous -1.6 mmol/L; Bicarbonate Venous 21.8 mmol/L (24.0-30.0); PCO2 Venous 60.5 mmHg (38-42); pH Blood Venous 7.24 (7.34-7.37)
[2023-02-02 19:49] LABS: Magnesium, Blood 2.3 mg/dL (1.6-2.4)
[2023-02-02 19:51] LABS: Influenza A, PCR NEGATIVE (NEGATIVE); Influenza B, PCR NEGATIVE (NEGATIVE); Resp Syncytial Virus, PCR NEGATIVE (NEGATIVE); SARS-Cov-2 (COVID-19) PCR, MMC NEGATIVE (NEGATIVE)
[2023-02-02 19:52] LABS: Thyroid Stimulating Hormone 0.396 uIU/mL (0.360-4.800)
[2023-02-03 04:27] LABS: BASOPHILS ABSOLUTE AUTO 0.04 K/mm3 (0.00-0.23); BASOPHILS PERCENT AUTO 1 % (0-2); EOSINOPHILS ABSOLUTE AUTO 0.11 K/mm3 (0.00-0.68); EOSINOPHILS PERCENT AUTO 2 % (0-6); Hematocrit 38.5 % (33.0-51.0); Hemoglobin 11.8 g/dL (11.5-16.0); IMMATURE GRAN ABSOLUTE AUTO 0.02 K/mm3 (0.00-0.10); IMMATURE GRAN PERCENT AUTO 0 % (0-1); LYMPHOCYTES ABSOLUTE AUTO 2.75 K/mm3 (0.84-5.20); LYMPHOCYTES PERCENT AUTO 36 % (21-46); MONOCYTES PERCENT AUTO 11 % (4-13); Mean Corpuscular HGB 28.4 pg (26.0-34.0); Mean Corpuscular HGB Conc 30.6 g/dL (31.5-36.5); Mean Corpuscular Volume 93 fL (80-100); NEUTROPHILS ABSOLUTE AUTO 3.83 K/mm3 (1.96-9.15); NEUTROPHILS PERCENT AUTO 51 % (41-73); Platelet Count 144 K/mm3 (150-400); RDW Coefficient Variation 14.8 % (11.7-14.2); RDW Standard Deviation 49.9 fL (35.1-46.3); Red Blood Cell Count 4.16 M/mm3 (3.80-5.20); White Blood Cell Count 7.55 K/mm3 (4.00-11.30)
[2023-02-03 04:58] LABS: Bun/Creatinine Ratio 31.5 (12.0-20.0); Creatinine, Blood 1.46 mg/dL (0.40-1.00); Potassium, Blood 4.8 mmol/L (3.5-5.5)
--- NOTE | 2023-02-03 11:36 | NUR ---
CALL TO HOSPITALIST DR. RAMEY WHO STATES THAT PT CAN STATUS CHANGE TO MEDICAL STATUS. ORDER PLACED.
[2023-02-03 15:10] VITALS: BP 161/89
[2023-02-03 20:14] VITALS: BP 154/64
--- NOTE | 2023-02-03 20:24 | NUR ---
SHIFT SUMMARY 1515 RECEIVED PT TO RM 359 VIA CLIPPATEABDI FROM ER. PT ABLE TO TX SELF TO BED. A&O, PLEASANT AND CO-OP. UP INDEPENDENTLY IN RM AND TO BTHRM. PER REPORT, PT PLACED ON 4L O2 IN ER. PT NOW ON 2L O2 AND PER PT, BASELINE ON RA. PT IMPROVING SINCE YESTERDAY. QUIT SMOKING WHEN COMING TO ER. DAUGHTER REMOVING ALL SMOKING MATERIAL FROM HOUSE TODAY, TO ASSIST PT TO STOP SMOKING. SITTING UP IN BED WATCHING TV. NO C/O. NO S/SX'S OF DISTRESS NOTED OR REPORTED. CALL LT IN REACH.
[2023-02-04 03:54] VITALS: BP 152/61
[2023-02-04 05:07] LABS: BASOPHILS ABSOLUTE AUTO 0.02 K/mm3 (0.00-0.23); BASOPHILS PERCENT AUTO 0 % (0-2); EOSINOPHILS ABSOLUTE AUTO 0.17 K/mm3 (0.00-0.68); EOSINOPHILS PERCENT AUTO 2 % (0-6); Hematocrit 38.7 % (33.0-51.0); IMMATURE GRAN ABSOLUTE AUTO 0.02 K/mm3 (0.00-0.10); IMMATURE GRAN PERCENT AUTO 0 % (0-1); LYMPHOCYTES PERCENT AUTO 31 % (21-46); MONOCYTES ABSOLUTE AUTO 0.82 K/mm3 (0.16-1.47); MONOCYTES PERCENT AUTO 11 % (4-13); Mean Corpuscular HGB 28.3 pg (26.0-34.0); Mean Corpuscular Volume 91 fL (80-100); Mean Platelet Volume 12.1 fL (9.1-12.4); NEUTROPHILS ABSOLUTE AUTO 4.04 K/mm3 (1.96-9.15); NEUTROPHILS PERCENT AUTO 55 % (41-73); Platelet Count 143 K/mm3 (150-400); RDW Coefficient Variation 14.6 % (11.7-14.2); RDW Standard Deviation 48.4 fL (35.1-46.3); Red Blood Cell Count 4.24 M/mm3 (3.80-5.20); White Blood Cell Count 7.37 K/mm3 (4.00-11.30)
--- NOTE | 2023-02-04 05:53 | NUR ---
shift rameshy, pt at this time appears to be asleep. earalyer pt very worried about not having her home meds. spoke with hospitalist and told pt why she could not have 2 of the meds, but was able to get order for nerontin. pt vo of why other 2 meds not to be given at this time. Pt at tai time appears to have yeast under her panisis claened area and applyed powder and a clean pillow case. call light in reach.
[2023-02-04 06:04] LABS: Albumin, Blood 1.8 g/dL (3.4-5.0); Albumin/Globulin Ratio 0.5 (0.8-1.8); Bilirubin, Total 0.1 mg/dL (0.1-1.0); Bun/Creatinine Ratio 36.7 (12.0-20.0); Calcium, Blood 8.2 mg/dL (8.5-10.1); Creatinine, Blood 1.09 mg/dL (0.40-1.00); Globulin, Blood 3.5 g/dL (2.2-4.0); Potassium, Blood 4.3 mmol/L (3.5-5.5); Total Protein, Blood 5.3 g/dL (6.4-8.2)
[2023-02-04 07:14] VITALS: BP 174/66
[2023-02-04 15:14] VITALS: BP 148/54
--- NOTE | 2023-02-04 16:24 | NUR ---
SHIFT SUMMARY PATIENT FAILED ROOM AIR TRIAL THIS SHIFT, DROPPED TO 87%. SATING 91-94% ON 1 LITER. GIVEN INCENTIVE SPIROMETER TO USE AND WALKED WITH STAFF IN HALLWAY. STATED SHE HAS A SLEEP STUDY CONSULT ON 03/25/23. VSS. HOPEFUL FOR DISCHARGE TOMORROW. WILL CONTINUE TO MONITOR
[2023-02-05 05:01] VITALS: BP 142/94
[2023-02-05 05:09] LABS: BASOPHILS ABSOLUTE AUTO 0.04 K/mm3 (0.00-0.23); BASOPHILS PERCENT AUTO 1 % (0-2); EOSINOPHILS ABSOLUTE AUTO 0.16 K/mm3 (0.00-0.68); EOSINOPHILS PERCENT AUTO 2 % (0-6); Hematocrit 39.7 % (33.0-51.0); Hemoglobin 12.1 g/dL (11.5-16.0); IMMATURE GRAN ABSOLUTE AUTO 0.01 K/mm3 (0.00-0.10); IMMATURE GRAN PERCENT AUTO 0 % (0-1); LYMPHOCYTES ABSOLUTE AUTO 2.82 K/mm3 (0.84-5.20); LYMPHOCYTES PERCENT AUTO 35 % (21-46); MONOCYTES ABSOLUTE AUTO 0.81 K/mm3 (0.16-1.47); MONOCYTES PERCENT AUTO 10 % (4-13); Mean Corpuscular HGB 27.6 pg (26.0-34.0); Mean Corpuscular HGB Conc 30.5 g/dL (31.5-36.5); Mean Corpuscular Volume 91 fL (80-100); Mean Platelet Volume 12.1 fL (9.1-12.4); NEUTROPHILS ABSOLUTE AUTO 4.16 K/mm3 (1.96-9.15); NEUTROPHILS PERCENT AUTO 52 % (41-73); Platelet Count 161 K/mm3 (150-400); RDW Coefficient Variation 14.4 % (11.7-14.2); RDW Standard Deviation 47.6 fL (35.1-46.3); Red Blood Cell Count 4.38 M/mm3 (3.80-5.20)
--- NOTE | 2023-02-05 05:29 | NUR ---
SHIFT SUMMERY, PT SITTING ON SIDE OF BED ON RA EARLIER TONIGHT. PT NOT HAVING ANY DIFFICULTY WITH BREATHING. PT AT THIS TIME ASLEEP AND SEEMS VERY COMFORTABLE RESPERTIONS EVEN AND UNLBORED, CALL LIGHT IN REACH.
[2023-02-05 05:40] LABS: Albumin/Globulin Ratio 0.5 (0.8-1.8); Bilirubin, Total 0.3 mg/dL (0.1-1.0); Bun/Creatinine Ratio 30.9 (12.0-20.0); Calcium, Blood 8.3 mg/dL (8.5-10.1); Creatinine, Blood 1.1 mg/dL (0.40-1.00); Globulin, Blood 3.8 g/dL (2.2-4.0); Potassium, Blood 4.5 mmol/L (3.5-5.5); Total Protein, Blood 5.8 g/dL (6.4-8.2)
[2023-02-05 07:04] VITALS: BP 124/56
[2023-02-05] MEDS ORDERED: DOCU100 PO (11:58)
[2023-02-05] MEDS ORDERED: Nicoderm Cq1 EAC1 TOP (11:59)
--- NOTE | 2023-02-05 14:09 | NUR ---
DISCHARGE SUMMARY IV REMOVED PRIOR TO DISCHARGE, NO COMPLICATIONS. DISCHARGE PACKET GIVEN, QUESTIONS ANSWERED, VERBALIZED UNDERSTANDING. EDUCATION PROVIDED REGARDING FOLLOW UP APPOINTMENTS, SIGNS OF HYPOXIA AND WHAT TO DO IN CASE OF, SMOKING CESSATION VERBALIZED UNDERSTANDING. MEDS FAXED TO [facility]
== END 2023-02-05 13:26 | disposition home or self-care (01) | DRG 189 ==
LOC: ER 15:40 → ERHOLD 15:41 → MEDS 02-03 15:08
PROVIDERS: Family Medicine; Internal Medicine; Physician Assistant; Student in an Organized Health Care Education/Training Program; ADMIT Internal Medicine
PROC: 5A09357 Assistance with Respiratory Ventilation, Less than 24 Consecutive Hours, Continuous Positive Airway Pressure (ICD-10-PCS; principal; 2023-02-02)
PROC: B24BZZZ Ultrasonography of Heart with Aorta (ICD-10-PCS; 2023-02-03)
DX: J96.02 Acute respiratory failure with hypercapnia (principal); G92.8 Other toxic encephalopathy; J44.1 Chronic obstructive pulmonary disease with (acute) exacerbation; J98.11 Atelectasis; I50.32 Chronic diastolic (congestive) heart failure; I13.0 Hypertensive heart and chronic kidney disease with heart failure and stage 1 through stage 4 chronic kidney disease, or unspecified chronic kidney disease; E87.4 Mixed disorder of acid-base balance; J96.01 Acute respiratory failure with hypoxia; I27.20 Pulmonary hypertension, unspecified; E11.22 Type 2 diabetes mellitus with diabetic chronic kidney disease; I48.0 Paroxysmal atrial fibrillation; E78.5 Hyperlipidemia, unspecified; L30.4 Erythema intertrigo; G47.30 Sleep apnea, unspecified; E88.09 Other disorders of plasma-protein metabolism, not elsewhere classified; E83.51 Hypocalcemia; E11.51 Type 2 diabetes mellitus with diabetic peripheral angiopathy without gangrene; E11.42 Type 2 diabetes mellitus with diabetic polyneuropathy; I16.0 Hypertensive urgency; F17.200 Nicotine dependence, unspecified, uncomplicated; D69.6 Thrombocytopenia, unspecified; Z79.01 Long term (current) use of anticoagulants; Z79.4 Long term (current) use of insulin; Z79.52 Long term (current) use of systemic steroids; Z88.5 Allergy status to narcotic agent; Z88.8 Allergy status to other drugs, medicaments and biological substances; Z88.0 Allergy status to penicillin; Z89.422 Acquired absence of other left toe(s); Z11.52 Encounter for screening for COVID-19
CPT/HCPCS: 0241U; 36415; 70450; 71046; 80048; 80053; 82803; 82947; 83735; 83880; 84145; 84443; 84484; 85025; 93005; 93010; 93306; 94660; 94760; 99285-25; A9270; J1815

== ENCOUNTER 2023-02-13 16:32 | Inpatient (IN) | payer OTHER ==
[~2023-02-13] VITALS: Ht 152.4 cm; Wt 89.5 kg
[~2023-02-13 16:32] MED LIST changes: +DOCU100 PO; +Norvasc2.5 MG PO
[2023-02-13 17:13] LABS: BASOPHILS ABSOLUTE AUTO 0.02 K/mm3 (0.00-0.23); BASOPHILS PERCENT AUTO 0 % (0-2); EOSINOPHILS PERCENT AUTO 0 % (0-6); Hematocrit 41.3 % (33.0-51.0); Hemoglobin 12.5 g/dL (11.5-16.0); IMMATURE GRAN ABSOLUTE AUTO 0.05 K/mm3 (0.00-0.10); IMMATURE GRAN PERCENT AUTO 1 % (0-1); LYMPHOCYTES ABSOLUTE AUTO 1.38 K/mm3 (0.84-5.20); LYMPHOCYTES PERCENT AUTO 16 % (21-46); MONOCYTES ABSOLUTE AUTO 0.28 K/mm3 (0.16-1.47); MONOCYTES PERCENT AUTO 3 % (4-13); Mean Corpuscular HGB 28.5 pg (26.0-34.0); Mean Corpuscular HGB Conc 30.3 g/dL (31.5-36.5); Mean Corpuscular Volume 94 fL (80-100); Mean Platelet Volume 11.9 fL (9.1-12.4); NEUTROPHILS ABSOLUTE AUTO 6.78 K/mm3 (1.96-9.15); NEUTROPHILS PERCENT AUTO 80 % (41-73); Platelet Count 189 K/mm3 (150-400); RDW Coefficient Variation 14.6 % (11.7-14.2); RDW Standard Deviation 50.2 fL (35.1-46.3); Red Blood Cell Count 4.38 M/mm3 (3.80-5.20); White Blood Cell Count 8.51 K/mm3 (4.00-11.30)
[2023-02-13 17:31] LABS: Albumin, Blood 2.3 g/dL (3.4-5.0); Albumin/Globulin Ratio 0.5 (0.8-1.8); Bilirubin, Total 0.2 mg/dL (0.1-1.0); Bun/Creatinine Ratio 45.3 (12.0-20.0); Calcium, Blood 8.4 mg/dL (8.5-10.1); Creatinine, Blood 1.61 mg/dL (0.40-1.00); Globulin, Blood 4.3 g/dL (2.2-4.0); Potassium, Blood 5.2 mmol/L (3.5-5.5); Total Protein, Blood 6.6 g/dL (6.4-8.2)
[2023-02-13 17:48] LABS: PCO2 Arterial 47.3 mmHg (35-45); PO2 Arterial 79.5 mmHg (80-100)
[2023-02-13 17:49] LABS: pH Blood Arterial 7.23 (7.35-7.45)
[2023-02-13 19:24] LABS: Source, Urine Clean Catch
[2023-02-13 19:38] LABS: Appearance, Urine Hazy (Clear); Bilirubin, Urine Neg (Neg); Blood, Urine 3+ (Neg); Color, Urine Yellow (P-Yellow); Glucose Qualitative, Urine 2+ (Neg); Ketones, Urine Neg (Neg); Leukocyte Esterase, Urine Neg (Neg); Nitrite, Urine Neg (Neg); Protein, Urine 4+ (Neg); Urobilinogen, Urine NORM (Normal)
[2023-02-13 19:54] LABS: Bacteria Many /hpf; Squamous Epithelial Cells Rare /hpf (Few)
[2023-02-13 20:31] LABS: Base Excess Venous -7.2 mmol/L; Bicarbonate Venous 18.4 mmol/L (24.0-30.0); PCO2 Venous 52.5 mmHg (38-42); pH Blood Venous 7.21 (7.34-7.37)
[2023-02-13 21:20] VITALS: BP 154/51
--- NOTE | 2023-02-13 22:41 | NUR ---
ASSUMPTION OF CARE PATIENT ARRIVED TO UNIT FROM ED AT APPROX 2100. PATIENT TRANSFERRED FROM ED [facility] TO HOSPITAL BED VIA SLIDER SHEET. PATIENT IS ALERT AND ORIENTED X2-3. IS ABLE TO REPORT NAME, DATE OF , AND LOCATION. PLEASANT, COOPERATIVE WITH CARE. POOR HISTORIAN, DAUGHTER IS AT BEDSIDE TO ASSIST WITH ADMISSION PROCESS. IS REQUESTING TO STAY AT BEDSIDE OVERNIGHT, DISCUSSED WITH BIOMETRICS ANALYST. DAUGHTER OKAY TO STAY THROUGHOUT THE NIGHT. DAUGHTER IS RECEPTIVE TO EDUCATION, ASKS QUESTIONS NEEDED, AND ASSISTS WITH CARE. BUE TREMORS NOTED, DAUGHTER REPORTS THAT IT HAS PROGRESSIVELY WORSENED OVER THE PAST TWO MONTHS. VSS. TELEMETRY SHOWING SINUS 60's. BP STABLE, SBP 150's. DENIES CHEST PAIN OR PRESSURE. NITRO PASTE APPLIED BY ED RN PRIOR TO ARRIVAL. IV LASIX ADMINISTERED BY ED RN PRIOR TO ARRIVAL. PATIENT IS ON BIPAP 14/ FI02 40%, SATS >95%. INCREASED WORK OF BREATHING, TACHYPNEA AT REST NOTED. MIRZA CATHETER PATENT, DRAINING YELLOW URINE TO GRAVITY. ATTENDS IN PLACE. CHANGED INTO PATIENT GOWN AND REPOSITIONED. CALL LIGHT IN REACH.
[2023-02-14] VITALS (7 sets, daily range): BP systolic 103–157; BP diastolic 50–136
--- NOTE | 2023-02-14 04:31 | NUR ---
SHIFT SUMMARY NO ACUTE CHANGES SINCE PREVIOUS NOTE. PATIENT REMAINS AOX2-3. SLEPT THROUGHOUT, EASILY AROUSABLE TO VERBAL STIMULI. DAUGHTER AT BEDSIDE THROUGHOUT. VS REMAIN STABLE. TELEMETRY SHOWING SINUS TO SINUS MIRI WITH RATE 50's-70's. BP STABLE. PATIENT DOES EXPERIENCE APNEIC EPISODES, NOW ON AVAP FI02 45% WHILE SLEEPING. SATS >95%. NEED FOR SLEEP STUDY PRIOR TO DISCHARGE DISCUSSED WITH RESPIRATORY THERAPY. REPOSITIONING REGULARLY. MIRZA CATHETER IN PLACE, DRAINING YELLOW URINE TO GRAVITY. LARGE INCONTINENT BOWEL MOVEMENT THIS SHIFT. ATTENDS IN PLACE. CALL LIGHT IN REACH. WILL REPORT TO ONCOMING RN.
[2023-02-14 05:05] LABS: Bun/Creatinine Ratio 46.7 (12.0-20.0); Calcium, Blood 8.2 mg/dL (8.5-10.1); Creatinine, Blood 1.65 mg/dL (0.40-1.00); Magnesium, Blood 2.5 mg/dL (1.6-2.4); Potassium, Blood 4.8 mmol/L (3.5-5.5)
--- NOTE | 2023-02-14 11:07 | NUR ---
AM NOTES; PT CBG WAS LOW AT 46, PT WAS SWITCHED FROM BIPAP MASK TO 6-8L OF O2 VIA HI DAMEON NC, RT WAS IN THE ROOM TO ASSIST ABLE TO TITRATE DOWN TO 4L, PT TOLERATING WELL, BIPAP/AVAPS REMAINED AT THE BEDSIDE. PT WAS GIVEN APPLE JUICE FOLLWED BY BREAK FAST TRAY, PT WAS ASYMPTOMATIC, CBG WENT UP TO 106, LONG ACTING INUSLIN HELD THIS MORNING PT RECEIVED A DOSE LAST NIGHT UPON ARRIVAL TO PCU. PT DENIES ANY CHEST PAIN/DISCOMFORT. VITALS HRR SR/SB 5-70'S, SBP 120'S, AFEBRILE. PT ABLE TO STAND AND TRANSFER TO BEDSIDE COMMODE 1PA, BED BATH WAS PROVIDED WELL. PT ATE BREAKFAST WITH NO ISSUES, MIRZA REMAINED PATENT AND DRAINING. PT CONTINUES TO DIURESE. SLEEP OXYMETRY TO BE DONE TONIGHT. PT CURRENTLY UP IN THE RECLINER, PALLIATIVE CARE NURSE IN THE ROOM TO ASSIST WITH POLST WITH THE DAUGHTER AT THE BEDSIDE, PT TRANSITIONED TO DNR. DNR BAND IN PLACE. NO OTHER ISSUES AT THIS TIME, CALL LIGHTS IN REACH WILL CONTINUE TO MONITOR
--- NOTE | 2023-02-14 11:43 | NUR ---
Spoke with Dr Lakhani prior to visit and discussed case. Dr Lakhani has started discussion regarding Palliative Care Program as out patient and discussed POLST form. Pt and family may benefit from further discussion. Pt sitting in chair upon arrival. Pt is A&OX4 and denies pain at this time. Pt's daughter Jazmine at bedside along with family friend, and Pt's son on speaker phone. Listened as daughter Jazmine reports Pt becomes significantly dyspneic and fatigued with ambulating short distances. She requires frequent rest periods to recover. Daughter reports due to dyspnea and fatigue Pt requires assistance with bathing and dressing. Educated on Palliative Care Philosophy and answered questions. Assisted with completing POLST. Educated on each choice and meaning of options. Family is requesting Pt receive education on diabetes management including instruction on insulin injections. Family express appreciation and report no other concerns at this time. Spoke with RN Polysomnography Technologist Carole, Dr Lakhani and relayed family's request. Palliative Care will remain available
--- NOTE | 2023-02-14 13:03 | NUR ---
Spiritual care visit conducted. Patient is sitting in a chair and alert. She shares about the of her spouse (3 yrs ago), about the reunion of her sons and herself after 27 yrs, and the reunion with her dtr, Jazmine, (who is her current caregiver and has been with her since December). She tells me about the hunter of having everyone at her house for the . We talk about her new found Adventist ita and the Bible that Jazmine got her recently. She tells me about her struggles with going home on hospice and that she is not ready to go home (to critical access hospital) now finally getting her family back together. I explain hospice further to her which seemed to take some of the worry out of the equation for the patient. I normalize her experience, facilatate story-telling and provide therapeutic and prayer. Patient responded well and showed signs of greater peace. I will continue to remain available to patient and family. listening, grief support, gentle high school counselor,
[2023-02-14 13:24] LABS: Adenovirus F 40/41 Not Detected (NOT DETECT); Astrovirus Not Detected (NOT DETECT); Campylobacter Sp Not Detected (NOT DETECT); Cryptosporidium Not Detected (NOT DETECT); Cyclospora Cayetanensis Not Detected (NOT DETECT); E. Coli O157 Not Detected (NOT DETECT); Entamoeba Histolytica Not Detected (NOT DETECT); Enteroaggregative E. coli-EAEC Not Detected (NOT DETECT); Enteropathogenic E. coli-EPEC Not Detected (NOT DETECT); Enterotoxigenic E. coli-ETEC Not Detected (NOT DETECT); Giardia Lamblia Not Detected (NOT DETECT); Norovirus GI/GII Not Detected (NOT DETECT); Plesiomonas Shigelloides Not Detected (NOT DETECT); Rotavirus A Not Detected (NOT DETECT); Salmonella Sp Not Detected (NOT DETECT); Sapovirus Not Detected (NOT DETECT); Shiga Toxin-prod E. coli-STEC Not Detected (NOT DETECT); Shigella/Enteroin E. coli-EIEC Not Detected (NOT DETECT); Vibrio Cholerae Not Detected (NOT DETECT); Vibrio Sp Not Detected (NOT DETECT); Yersinia Enterocolitica Not Detected (NOT DETECT)
[2023-02-14 15:00] LABS: Bun/Creatinine Ratio 48.7 (12.0-20.0); Calcium, Blood 8.5 mg/dL (8.5-10.1); Creatinine, Blood 1.58 mg/dL (0.40-1.00); Potassium, Blood 4.3 mmol/L (3.5-5.5)
[2023-02-14] MEDS ORDERED: CLOP75 PO (18:21)
[2023-02-14] MEDS ORDERED: METO2.5 PO (18:22)
[2023-02-14] MEDS ORDERED: METO50ER PO (18:23)
--- NOTE | 2023-02-14 19:21 | NUR ---
PT SUMMARY: SEE AM NOTE; NO ACUTE CHANGE SINCE THIS AM. PT FOR OVERNIGHT OXIMETRY TONIGHT. AVAPS AT BEDSIDE FOR PT'S USE TONIGHT. VITALS HAS BEEN STABLE. PROVIDER MADE AWARE OF LOW CBG THIS MORNING LANTUS ADJUSTED DOWN TO 10U. CBG HAS STAYED >100 FOR THE SHIFT. PT EATING AND DRINKING WITH NO ISSUES, HAS BEEN UP IN THE RECLINER MOST OF THE SHIFT. SOEM FAMILY MEMBERS CAME IN TO VISIT. ALSO NINA FROM PALLITIVE CARE ABLE TO FILL OUT FORM WITH THE FAMILY, PT REQUESTED TO BE DNR. DNR BAND ON RIGHT WRIST PLACED. PT HAS BEEN ON 2L OF O2 MOST OF THE SHIFT. DENEIS SOB/. DENIES CHEST PAIN. NO OTHER ISSUES ECOUNTERED WILL REPORT TO ONCOMING SHIFT
[2023-02-15 05:25] VITALS: BP 135/59
--- NOTE | 2023-02-15 07:05 | NUR ---
SHIFT SUMMARY PATIENT ALERT AND ORIENTED X4. HAD SOME DISCOMFORT IN HER LOWER BACK THAT WAS ALLEVIATED WITH REPOSITIONING. SLEEP OXYMETRY STUDY PERFORMED OVERNIGHT, PATIENT HAD SEVERAL EPISODES OF APNEA, SPO2 DROPPED TO 69%, INCREASED O2 FROM 2 TO 6 LITERS VIA NC. HAD NO COMPLAINTS OF CHEST PAIN OR SHORTNESS OF BREATH. VITAL SIGNS STABLE. WILL CONTINUE TO MONITOR. CALL LIGHT WITHIN REACH.
[2023-02-15 07:13] LABS: BASOPHILS ABSOLUTE AUTO 0.05 K/mm3 (0.00-0.23); BASOPHILS PERCENT AUTO 1 % (0-2); EOSINOPHILS ABSOLUTE AUTO 0.11 K/mm3 (0.00-0.68); EOSINOPHILS PERCENT AUTO 1 % (0-6); Hematocrit 37.2 % (33.0-51.0); Hemoglobin 11.4 g/dL (11.5-16.0); IMMATURE GRAN ABSOLUTE AUTO 0.02 K/mm3 (0.00-0.10); IMMATURE GRAN PERCENT AUTO 0 % (0-1); LYMPHOCYTES ABSOLUTE AUTO 2.58 K/mm3 (0.84-5.20); LYMPHOCYTES PERCENT AUTO 34 % (21-46); MONOCYTES ABSOLUTE AUTO 0.88 K/mm3 (0.16-1.47); MONOCYTES PERCENT AUTO 12 % (4-13); Mean Corpuscular HGB 28.2 pg (26.0-34.0); Mean Corpuscular HGB Conc 30.6 g/dL (31.5-36.5); Mean Corpuscular Volume 92 fL (80-100); Mean Platelet Volume 12.1 fL (9.1-12.4); NEUTROPHILS ABSOLUTE AUTO 3.95 K/mm3 (1.96-9.15); NEUTROPHILS PERCENT AUTO 52 % (41-73); Platelet Count 196 K/mm3 (150-400); RDW Coefficient Variation 14.7 % (11.7-14.2); RDW Standard Deviation 49.1 fL (35.1-46.3); Red Blood Cell Count 4.04 M/mm3 (3.80-5.20); White Blood Cell Count 7.59 K/mm3 (4.00-11.30)
[2023-02-15 07:24] LABS: Bun/Creatinine Ratio 59.8 (12.0-20.0); Calcium, Blood 8.3 mg/dL (8.5-10.1); Creatinine, Blood 1.12 mg/dL (0.40-1.00); Potassium, Blood 4.3 mmol/L (3.5-5.5)
--- NOTE | 2023-02-15 10:35 | NUR ---
Pt resting in bed upon arrival. Reviewed plan of care and offered supportive visit. Dr Martell signed POLST. Obtained copy of POLST and delivered to medical records via hospital tube system. Placed copy of POLST in Pt's paper chart. Provided family original POLST to go home with Pt. Pt and family report no concerns at this time. Palliative Care will remain available
--- NOTE | 2023-02-15 14:45 | NUR ---
Spiritual care visit conducted. Patient is lying in bed and alert. Her dtr Jazmine in bedside. The patient tells me that she is hoping to return home tomorrow and that she is improving in her strength and clarity. She talks about her family and her prayers for them. I provide therapeutic listening and prayer. Patient responded well and showed signs of greater peace. I will continue to remain available to patient and family.
[2023-02-15 15:27] VITALS: BP 161/65
--- NOTE | 2023-02-15 16:44 | NUR ---
PT TRANSFERRED TO [facility] 333 REPORT GIVEN TO KATHY RITCHIE. NO ACUTE CHANGE FOR KARTIK SHIFT. PT FOR REPEAT SLEEP OXIMETRY TONIGHT POSSIBLY HOME O2 EVAL IN AM AND DC HOME. DELMI GAN PROVIDED MORE INFOMATION ABOUT EARLY APPT FOR PFT AND SLEEP STUDY OUTPT. PT STARTED ON BLADDER TRAINING THIS MORNING, MIRZA WAS REMOVED, PT ABLE TO VOID TO [facility] BATHROOM WITH NO ISSUES. PT HAD A SHOWER AFTER LUNCH TIME, 1PA FOR TRANSFERS AMBULATING AROUND THE ROOM. DAUGHTER AT THE BEDSIDE MOST OF THE SHIFT AWARE OF THE PLANS. VITALS HAS BEEN STABLE, PT ABLE TO MAKEE NEEDS KNOWN. ALL BELONGINGS SENT WITH THE PT, ACCOMPANIED VIA WHEELCHAIR FOR TRANFER
--- NOTE | 2023-02-15 17:56 | NUR ---
Patient alert & oriented x3. Patient worked with therapy early this morning, she was able to stand and take a few steps with OT. Encouraged patient to get OOB and sit in recliner, patient declined stated she was too exhasuted from morning therapy. PT came to work with patient this afternoon, patient declined stating she was too tired and her back hurt. Patient agreed to do exercies in bed. IV ABX and IV lasix administred. Vitals stable. Will contine plan of care.
--- NOTE | 2023-02-15 17:58 | NUR ---
PCU TRANSFER Patient alert & oriented x4. Staff SBA/supervision when ambulating, patient has steady gait and ambulated well w/o assistance. Plan to do overnight pulse oximetry. CBG WNL, no SSI needed at dinner . Vitals stable. Will contine plan of care.
[2023-02-15 19:16] VITALS: BP 151/61
[2023-02-16 04:10] VITALS: BP 164/58
--- NOTE | 2023-02-16 04:10 | NUR ---
SHIFT SUMMARY PATIENT HAD NO ACUTE CHANGES. AXOX 4 AND INDEPENDENT IN ROOM. ON 2L O2 NC AND SLEEP STUDY SETUP AND MONITOR BY RT. DENIES CHEST PAIN, SOB, AND N/V. VSS/AFEBRILE. DAUGHTER STAYED OVERNIGHT. CALL LIGHT IN REACH. BED IN LOWEST POSITION. WILL CONTINUE TO MONITOR UNTIL DAY SHIFT NURSE ASSUMES CARE.
[2023-02-16 05:27] LABS: BASOPHILS ABSOLUTE AUTO 0.04 K/mm3 (0.00-0.23); BASOPHILS PERCENT AUTO 1 % (0-2); EOSINOPHILS ABSOLUTE AUTO 0.17 K/mm3 (0.00-0.68); EOSINOPHILS PERCENT AUTO 2 % (0-6); Hematocrit 40.4 % (33.0-51.0); Hemoglobin 12.3 g/dL (11.5-16.0); IMMATURE GRAN ABSOLUTE AUTO 0.03 K/mm3 (0.00-0.10); IMMATURE GRAN PERCENT AUTO 0 % (0-1); LYMPHOCYTES ABSOLUTE AUTO 2.46 K/mm3 (0.84-5.20); LYMPHOCYTES PERCENT AUTO 30 % (21-46); MONOCYTES ABSOLUTE AUTO 0.78 K/mm3 (0.16-1.47); MONOCYTES PERCENT AUTO 10 % (4-13); Mean Corpuscular HGB 27.8 pg (26.0-34.0); Mean Corpuscular HGB Conc 30.4 g/dL (31.5-36.5); Mean Corpuscular Volume 91 fL (80-100); Mean Platelet Volume 11.4 fL (9.1-12.4); NEUTROPHILS ABSOLUTE AUTO 4.65 K/mm3 (1.96-9.15); NEUTROPHILS PERCENT AUTO 57 % (41-73); Platelet Count 214 K/mm3 (150-400); RDW Coefficient Variation 14.8 % (11.7-14.2); RDW Standard Deviation 48.8 fL (35.1-46.3); Red Blood Cell Count 4.42 M/mm3 (3.80-5.20); White Blood Cell Count 8.13 K/mm3 (4.00-11.30)
[2023-02-16 05:56] LABS: Bun/Creatinine Ratio 51.5 (12.0-20.0); Calcium, Blood 8.6 mg/dL (8.5-10.1); Creatinine, Blood 0.89 mg/dL (0.40-1.00); Potassium, Blood 4.4 mmol/L (3.5-5.5)
[2023-02-16 07:59] VITALS: BP 158/58
--- NOTE | 2023-02-16 09:00 | NUR ---
pt sitting up on the side of the bed, in good humor, a/ox4, pleasant and cooperative with care, follows commands well, denies pain, lungs are clear in upper duncan, dim in bases, resp even and unlabored at rest, on 1 liter 02 via n/c, no cough noted, hrr, 1+ edema noted to b/l le, ppp+1, cap refill <3sec, vs stable, afebrile iv site to right fa that is tender, was removed intact, btx4, abd flat soft nontender, voids without diff, skin c/w/d, maew, ren, call light in reach.
[2023-02-16] MEDS ORDERED: FURO40 PO (12:16)
[2023-02-16] MEDS ORDERED: METF500 PO (12:16)
--- NOTE | 2023-02-16 14:02 | NUR ---
pt has been discharged to home, went over discharge instructions with her, she verbalized understanding, but was adamant she would not take metformin, call to Dr. Lakhani, she returned called and explained that XL isn't as prone to cause those symptoms, but not to return on actose. explained this to the pt. she said ok. iv was removed intact. new medication faxed to her pharmacy, will leave when dressed via wheelchair with all her belongings.
--- NOTE | 2023-02-16 16:16 | NUR ---
pt has been discharged to home, daughter in attendence and has a number of questions that were addressed with Dr. Lakhani. they were satified that all questions were answered and felt ok about instructions. home o2 at was ordered and scheduled to be delivered, new med faxed to her pharmacy, has all belongings. left via wheelchair with longwall foreman and daughter in attendence.
== END 2023-02-16 16:16 | disposition home health service (06) | DRG 291 ==
LOC: ER 16:32 → ICUE 19:44 → PCU 19:44 → MEDS 02-15 16:46
PROVIDERS: Emergency Medicine; Family Medicine; Nurse Practitioner Acute Care; Student in an Organized Health Care Education/Training Program; ADMIT Internal Medicine
PROC: 5A09357 Assistance with Respiratory Ventilation, Less than 24 Consecutive Hours, Continuous Positive Airway Pressure (ICD-10-PCS; principal; 2023-02-13)
PROC: 4A033R1 Measurement of Arterial Saturation, Peripheral, Percutaneous Approach (ICD-10-PCS; 2023-02-13)
DX: I13.0 Hypertensive heart and chronic kidney disease with heart failure and stage 1 through stage 4 chronic kidney disease, or unspecified chronic kidney disease (principal); I50.33 Acute on chronic diastolic (congestive) heart failure; J96.01 Acute respiratory failure with hypoxia; J96.02 Acute respiratory failure with hypercapnia; E87.4 Mixed disorder of acid-base balance; F17.213 Nicotine dependence, cigarettes, with withdrawal; Z51.5 Encounter for palliative care; Z66 Do not resuscitate; N18.30 Chronic kidney disease, stage 3 unspecified; I48.0 Paroxysmal atrial fibrillation; E11.22 Type 2 diabetes mellitus with diabetic chronic kidney disease; E78.5 Hyperlipidemia, unspecified; E11.51 Type 2 diabetes mellitus with diabetic peripheral angiopathy without gangrene; J44.9 Chronic obstructive pulmonary disease, unspecified; E11.42 Type 2 diabetes mellitus with diabetic polyneuropathy; E11.65 Type 2 diabetes mellitus with hyperglycemia; E66.01 Morbid (severe) obesity due to excess calories; G47.10 Hypersomnia, unspecified; Z68.36 Body mass index [BMI] 36.0-36.9, adult; Z89.422 Acquired absence of other left toe(s); Z88.8 Allergy status to other drugs, medicaments and biological substances; Z88.5 Allergy status to narcotic agent; Z88.0 Allergy status to penicillin; Z91.038 Other insect allergy status; Z91.018 Allergy to other foods; Z79.899 Other long term (current) drug therapy; Z79.4 Long term (current) use of insulin; Z79.01 Long term (current) use of anticoagulants
CPT/HCPCS: 36415; 36600; 51702; 71045; 80048; 80053; 81001; 82803; 82947; 83735; 83880; 85025; 87507; 93005; 93010; 94660; 94760; 94762; 96374; 97110; 97116; 97162; 97165; 97535; 99285-25; A9270; J1815; J1940

== ENCOUNTER 2023-04-11 14:50 | Emergency (ER) | payer OTHER ==
[~2023-04-11] VITALS: Ht 152.4 cm; Wt 85.7 kg
[~2023-04-11 14:50] MED LIST changes: +CLOP75 PO; +FURO40 PO; +METF500 PO; +METO50ER PO
[2023-04-11 16:05] LABS: BASOPHILS ABSOLUTE AUTO 0.04 K/mm3 (0.00-0.23); BASOPHILS PERCENT AUTO 1 % (0-2); EOSINOPHILS ABSOLUTE AUTO 0.08 K/mm3 (0.00-0.68); EOSINOPHILS PERCENT AUTO 1 % (0-6); Hematocrit 37.8 % (33.0-51.0); Hemoglobin 11.6 g/dL (11.5-16.0); IMMATURE GRAN ABSOLUTE AUTO 0.02 K/mm3 (0.00-0.10); IMMATURE GRAN PERCENT AUTO 0 % (0-1); LYMPHOCYTES ABSOLUTE AUTO 1.82 K/mm3 (0.84-5.20); LYMPHOCYTES PERCENT AUTO 26 % (21-46); MONOCYTES ABSOLUTE AUTO 0.49 K/mm3 (0.16-1.47); MONOCYTES PERCENT AUTO 7 % (4-13); Mean Corpuscular HGB 28.9 pg (26.0-34.0); Mean Corpuscular HGB Conc 30.7 g/dL (31.5-36.5); Mean Corpuscular Volume 94 fL (80-100); Mean Platelet Volume 11.1 fL (9.1-12.4); NEUTROPHILS ABSOLUTE AUTO 4.52 K/mm3 (1.96-9.15); NEUTROPHILS PERCENT AUTO 65 % (41-73); Platelet Count 215 K/mm3 (150-400); RDW Coefficient Variation 14.6 % (11.7-14.2); RDW Standard Deviation 50.2 fL (35.1-46.3); Red Blood Cell Count 4.01 M/mm3 (3.80-5.20); White Blood Cell Count 6.97 K/mm3 (4.00-11.30)
[2023-04-11 16:44] LABS: Albumin/Globulin Ratio 0.5 (0.8-1.8); Bilirubin, Total 0.2 mg/dL (0.1-1.0); Bun/Creatinine Ratio 24.5 (12.0-20.0); Calcium, Blood 8.5 mg/dL (8.5-10.1); Creatinine, Blood 0.94 mg/dL (0.40-1.00); Potassium, Blood 4.4 mmol/L (3.5-5.5)
[2023-04-11 16:45] LABS: Influenza A, PCR NEGATIVE (NEGATIVE); Influenza B, PCR NEGATIVE (NEGATIVE); Resp Syncytial Virus, PCR NEGATIVE (NEGATIVE); SARS-Cov-2 (COVID-19) PCR, MMC NEGATIVE (NEGATIVE)
[2023-04-11 17:14] LABS: Base Excess Venous 1.1 mmol/L; Bicarbonate Venous 24.4 mmol/L (24.0-30.0); PCO2 Venous 55.5 mmHg (38-42)
[2023-04-11 19:45] VITALS: BP 170/76
[2023-04-11] MEDS ORDERED: FURO20 PO (20:01)
[2023-04-19] MEDS ORDERED: INSULANI (01:57)
== END 2023-04-11 20:14 | disposition home or self-care (01) ==
LOC: ER 14:50
PROVIDERS: Student in an Organized Health Care Education/Training Program
DX: J96.22 Acute and chronic respiratory failure with hypercapnia (principal); J96.21 Acute and chronic respiratory failure with hypoxia; I50.30 Unspecified diastolic (congestive) heart failure; J44.9 Chronic obstructive pulmonary disease, unspecified; E11.42 Type 2 diabetes mellitus with diabetic polyneuropathy; E78.5 Hyperlipidemia, unspecified; I48.91 Unspecified atrial fibrillation; F17.200 Nicotine dependence, unspecified, uncomplicated; Z11.52 Encounter for screening for COVID-19; Z91.030 Bee allergy status; Z88.6 Allergy status to analgesic agent; Z91.018 Allergy to other foods; Z88.0 Allergy status to penicillin; Z88.4 Allergy status to anesthetic agent; Z88.5 Allergy status to narcotic agent; Z79.02 Long term (current) use of antithrombotics/antiplatelets; Z79.01 Long term (current) use of anticoagulants; Z79.84 Long term (current) use of oral hypoglycemic drugs; Z79.899 Other long term (current) drug therapy
CPT/HCPCS: 0241U; 71046; 80053; 82803; 83880; 85025; 93005; 93010; 94640; 94664; 96374; 96375; 99285-25; J1940; J2930

== ENCOUNTER 2023-04-18 18:28 | Inpatient (IN) | payer OTHER ==
[~2023-04-18] VITALS: Ht 152.4 cm; Wt 82.6 kg
[2023-04-18 20:14] LABS: BASOPHILS ABSOLUTE AUTO 0.04 K/mm3 (0.00-0.23); BASOPHILS PERCENT AUTO 1 % (0-2); EOSINOPHILS ABSOLUTE AUTO 0.11 K/mm3 (0.00-0.68); EOSINOPHILS PERCENT AUTO 2 % (0-6); Hematocrit 36.4 % (33.0-51.0); Hemoglobin 11.4 g/dL (11.5-16.0); IMMATURE GRAN ABSOLUTE AUTO 0.02 K/mm3 (0.00-0.10); IMMATURE GRAN PERCENT AUTO 0 % (0-1); LYMPHOCYTES ABSOLUTE AUTO 2.55 K/mm3 (0.84-5.20); LYMPHOCYTES PERCENT AUTO 35 % (21-46); MONOCYTES ABSOLUTE AUTO 0.65 K/mm3 (0.16-1.47); MONOCYTES PERCENT AUTO 9 % (4-13); Mean Corpuscular HGB 29.3 pg (26.0-34.0); Mean Corpuscular HGB Conc 31.3 g/dL (31.5-36.5); Mean Corpuscular Volume 94 fL (80-100); NEUTROPHILS ABSOLUTE AUTO 4.03 K/mm3 (1.96-9.15); NEUTROPHILS PERCENT AUTO 54 % (41-73); Platelet Count 189 K/mm3 (150-400); RDW Coefficient Variation 14.6 % (11.7-14.2); Red Blood Cell Count 3.89 M/mm3 (3.80-5.20)
[2023-04-18 20:30] LABS: Albumin, Blood 1.9 g/dL (3.4-5.0); Albumin/Globulin Ratio 0.5 (0.8-1.8); Bilirubin, Total 0.2 mg/dL (0.1-1.0); Bun/Creatinine Ratio 40.5 (12.0-20.0); Creatinine, Blood 0.91 mg/dL (0.40-1.00); Globulin, Blood 3.8 g/dL (2.2-4.0); Potassium, Blood 4.9 mmol/L (3.5-5.5); Total Protein, Blood 5.7 g/dL (6.4-8.2)
[2023-04-19] MEDS ORDERED: INSULANI SC (01:57)
[2023-04-19] MEDS ORDERED: FURO40 PO (01:58)
[2023-04-19] MEDS ORDERED: PIOG30 PO (01:59)
[2023-04-19 05:26] LABS: BASOPHILS ABSOLUTE AUTO 0.04 K/mm3 (0.00-0.23); BASOPHILS PERCENT AUTO 1 % (0-2); EOSINOPHILS ABSOLUTE AUTO 0.17 K/mm3 (0.00-0.68); EOSINOPHILS PERCENT AUTO 2 % (0-6); Hemoglobin 10.9 g/dL (11.5-16.0); IMMATURE GRAN ABSOLUTE AUTO 0.02 K/mm3 (0.00-0.10); IMMATURE GRAN PERCENT AUTO 0 % (0-1); LYMPHOCYTES ABSOLUTE AUTO 2.49 K/mm3 (0.84-5.20); LYMPHOCYTES PERCENT AUTO 31 % (21-46); MONOCYTES ABSOLUTE AUTO 0.76 K/mm3 (0.16-1.47); MONOCYTES PERCENT AUTO 9 % (4-13); Mean Corpuscular HGB 28.8 pg (26.0-34.0); Mean Corpuscular HGB Conc 31.1 g/dL (31.5-36.5); Mean Corpuscular Volume 93 fL (80-100); Mean Platelet Volume 11.5 fL (9.1-12.4); NEUTROPHILS ABSOLUTE AUTO 4.59 K/mm3 (1.96-9.15); NEUTROPHILS PERCENT AUTO 57 % (41-73); Platelet Count 177 K/mm3 (150-400); RDW Coefficient Variation 14.6 % (11.7-14.2); RDW Standard Deviation 49.5 fL (35.1-46.3); Red Blood Cell Count 3.78 M/mm3 (3.80-5.20); White Blood Cell Count 8.07 K/mm3 (4.00-11.30)
[2023-04-19 05:52] LABS: Albumin, Blood 1.8 g/dL (3.4-5.0); Albumin/Globulin Ratio 0.5 (0.8-1.8); Bilirubin, Total 0.3 mg/dL (0.1-1.0); Bun/Creatinine Ratio 35.8 (12.0-20.0); Calcium, Blood 8.2 mg/dL (8.5-10.1); Creatinine, Blood 1.09 mg/dL (0.40-1.00); Globulin, Blood 3.7 g/dL (2.2-4.0); Potassium, Blood 4.2 mmol/L (3.5-5.5); Total Protein, Blood 5.5 g/dL (6.4-8.2)
[2023-04-19] MEDS ORDERED: FURO20 PO (15:49)
[2023-04-19] MEDS ORDERED: ANORO ELLIPTA1 EACH INH (15:51)
[2023-04-19] MEDS ORDERED: ALBU90OI INH (15:52)
[2023-04-19] MEDS ORDERED: AMLO10 PO (15:52)
[2023-04-19 15:58] VITALS: BP 162/60
[2023-04-19] MEDS ORDERED: CHANTIX1 MG PO (16:24)
--- NOTE | 2023-04-19 18:13 | NUR ---
ER ADMIT Patient admitted for CHF excerbation, alert & oriented x4. BLE pitting edema +2. Plan to diuresis, IV Lasix administred. 2LPM O2 via NC. Will continue plan of care.
[2023-04-19 19:17] VITALS: BP 156/64
[2023-04-20 03:11] VITALS: BP 132/50
--- NOTE | 2023-04-20 04:34 | NUR ---
SHIFT SUMMARY PT ADMIT FOR RESPIRATORY FAILURE W/HYPOXIA AND CHF EXAC. SHE HAS A PURE WIC IN PLACE. 925ML COLLECTED THIS PM. SHE REQUESTED AN EGG CRATE MAT FOR HER BED DT PAIN IN HER TAILBONE. THIS SEEMED TO HELP HER PAIN, SHE STATED SHE WAS MUCH MORE COMFORTABLE AND WAS ABLE TO SLEEP. SHE REQUESTS TO KEEP HER DOOR OPEN, SHE IS CLAUSTROPHOBIC. DAUGHTER HAS BEEN IN THE ROOM WITH HER AND IS PLEASANT AND HELPFUL. PT IS PLEASANT AND COOPERATIVE WITH HER CARE. SHE IS STEADY ON HER FEET, WITH FWW AND STANDBY ASSIST. O2 SATING AT 94% ON 2L. PT STATES THIS IS HER BASELINE.
--- NOTE | 2023-04-20 05:28 | NUR ---
WT: 88.45 KG
[2023-04-20 05:53] LABS: BASOPHILS ABSOLUTE AUTO 0.03 K/mm3 (0.00-0.23); BASOPHILS PERCENT AUTO 0 % (0-2); EOSINOPHILS ABSOLUTE AUTO 0.19 K/mm3 (0.00-0.68); EOSINOPHILS PERCENT AUTO 2 % (0-6); Hemoglobin 10.8 g/dL (11.5-16.0); IMMATURE GRAN ABSOLUTE AUTO 0.02 K/mm3 (0.00-0.10); IMMATURE GRAN PERCENT AUTO 0 % (0-1); LYMPHOCYTES ABSOLUTE AUTO 2.41 K/mm3 (0.84-5.20); LYMPHOCYTES PERCENT AUTO 30 % (21-46); MONOCYTES PERCENT AUTO 10 % (4-13); Mean Corpuscular HGB 28.5 pg (26.0-34.0); Mean Corpuscular HGB Conc 30.9 g/dL (31.5-36.5); Mean Corpuscular Volume 92 fL (80-100); Mean Platelet Volume 12.2 fL (9.1-12.4); NEUTROPHILS ABSOLUTE AUTO 4.54 K/mm3 (1.96-9.15); NEUTROPHILS PERCENT AUTO 57 % (41-73); Platelet Count 170 K/mm3 (150-400); RDW Coefficient Variation 14.4 % (11.7-14.2); RDW Standard Deviation 48.4 fL (35.1-46.3); Red Blood Cell Count 3.79 M/mm3 (3.80-5.20); White Blood Cell Count 7.99 K/mm3 (4.00-11.30)
[2023-04-20 06:29] LABS: Bun/Creatinine Ratio 36.7 (12.0-20.0); Calcium, Blood 8.2 mg/dL (8.5-10.1); Creatinine, Blood 1.09 mg/dL (0.40-1.00)
[2023-04-20 07:34] VITALS: BP 129/52
[2023-04-20 15:35] VITALS: BP 137/56
--- NOTE | 2023-04-20 17:09 | NUR ---
PT IS A/OX4, PLEASANT AND COOPERATIVE. THE PT IS UP IND TO THE BATHROOM. THE PT CONTINUES ON O2 @ 2L/MIN VIA NC, PT APPEARS TO BE BREATHING EASILY AT REST, HOWEVER, IS SOB WITH ACTIVITY. PT DENIED ANY PAIN T/O THE SHIFT. PT DAUGHTER IS AT THE BEDSIDE T/O THE DAY AND ASSISTS WITH THE PTS CARE. PT RECIEVED SCHED. AND PRN BREATHING TX'S. CALL LIGHT IN REACH
[2023-04-20 19:20] VITALS: BP 148/54
--- NOTE | 2023-04-20 23:12 | NUR ---
SLEEP STUDY BEGINNING. RT SET UP ROOM. NURSE INSTRUCTED NOT TO ADDRESS O2, IF PT DESATS RT TO F/U. CALL LIGHT IN REACH
--- NOTE | 2023-04-21 03:12 | NUR ---
MAINTENANCE SERVICE SUPERVISOR SUMMARY VSS. HS BLOOD SUGAR 201, NO INSULIN NEEDED. DAUGHTER WAS AT BEDSIDE FOR SUPPORT. O2 AT 2L/MIN PER NC AT HS. SLEEP STUDY INITIATED AROUND 2200 PM PER RT. RESTING QUIETLY AT INTERVALS. CALL LIGHT IN REACH. RAILS UP X 2 FOR SAFETY. WILL CONTINUE TO MONITOR. RT TO SUPERVISE SLEEP STUDY - SEE RT DOCUMENTATION RE DETAILS.
--- NOTE | 2023-04-21 05:06 | NUR ---
AWAKE. UP TO BEDSIDE COMMODE WITH ASSIST. O2 SATS DROPPED TO 74%, THEN 78%, 84%. CALL PLACED TO RT, RT UP TO ROOM TO ADDRESS. SEE RT NOTATIONS
[2023-04-21 05:12] VITALS: BP 152/66
[2023-04-21 06:09] LABS: BASOPHILS ABSOLUTE AUTO 0.02 K/mm3 (0.00-0.23); BASOPHILS PERCENT AUTO 0 % (0-2); EOSINOPHILS ABSOLUTE AUTO 0.17 K/mm3 (0.00-0.68); EOSINOPHILS PERCENT AUTO 2 % (0-6); Hematocrit 34.8 % (33.0-51.0); Hemoglobin 10.8 g/dL (11.5-16.0); IMMATURE GRAN ABSOLUTE AUTO 0.02 K/mm3 (0.00-0.10); IMMATURE GRAN PERCENT AUTO 0 % (0-1); LYMPHOCYTES ABSOLUTE AUTO 2.16 K/mm3 (0.84-5.20); LYMPHOCYTES PERCENT AUTO 28 % (21-46); MONOCYTES ABSOLUTE AUTO 0.71 K/mm3 (0.16-1.47); MONOCYTES PERCENT AUTO 9 % (4-13); Mean Corpuscular Volume 94 fL (80-100); NEUTROPHILS ABSOLUTE AUTO 4.63 K/mm3 (1.96-9.15); NEUTROPHILS PERCENT AUTO 60 % (41-73); Platelet Count 163 K/mm3 (150-400); RDW Coefficient Variation 14.4 % (11.7-14.2); RDW Standard Deviation 48.5 fL (35.1-46.3); Red Blood Cell Count 3.72 M/mm3 (3.80-5.20); White Blood Cell Count 7.71 K/mm3 (4.00-11.30)
[2023-04-21 06:51] LABS: Bun/Creatinine Ratio 42.1 (12.0-20.0); Calcium, Blood 8.6 mg/dL (8.5-10.1); Creatinine, Blood 1.14 mg/dL (0.40-1.00); Potassium, Blood 4.3 mmol/L (3.5-5.5)
[2023-04-21 07:22] VITALS: BP 141/51
[2023-04-21 15:37] VITALS: BP 146/53
--- NOTE | 2023-04-21 18:26 | NUR ---
PT IS A/OX4, PLEASANT AND COOPERATIVE, PT IS UP IND TO THE BATHROOM. THE PT APPEARS TO BE BREATHING EASILY ON O2 @ 2L/MIN AT REST. PT IS MILDLY SOB WITH EXCERTION. THIS AM THE PT REPORTED CHEST PRESSURE 8/10, EKG WAS TAKEN AND PLACED IN THE CHART PER MD ORDERS. THE PTS PRESURE RESOLVED AFTER APROX. 10 MIN. PTS DAUGHTER WAS AT THE BESIDE FOR MOST OF THE DAY. CALL LIGHT IN REACH. CONTINUIOS [employer] ON
[2023-04-21 19:53] VITALS: BP 150/59
--- NOTE | 2023-04-22 02:23 | NUR ---
TALKED WITH PATIENT AND DAUGHTER DURING ROUNDING. PATIENT AND DAUGHTER MENTIONED THAT RT HAD MENTIONED DOING A HOME O2 STUDY PATIENT DOES NOT USE OXYGEN CONTINUOUS AT HOME. PATIENT PRIOR TO ADMITTANCE WAS ON 1L O2 VIA NASAL CANNULA AT BEDTIME AT HOME AND WAS EXPERIENCES DIFFICULTY BREATHING AT NIGHT WELL T/O THE DAY. LET PATIENT AND DAUGHTER KNOW I WOULD NOTE OUR CONVERSATION AND RELAY MESSAGE ONTO DAY SHIFT WELL.
--- NOTE | 2023-04-22 04:30 | NUR ---
SHIFT SUMMARY. PATIENT IS PLEASANT AND INDEPENDENT IN ROOM W/FWW. PATIENT IS ON 5 L'S OF OXYGEN AT THIS TIME. PATIENT IS HAVING A SLEEP STUDY DONE T/O NIGHT. DAUGHTER IS IN ROOM OVER NIGHT WITH PATIENT. PATIENT HAS NO C/O PAIN. PATIENT IS PLEASANT AND COOPERATIVE WITH CARE.
[2023-04-22 05:10] VITALS: BP 147/52
[2023-04-22 06:21] LABS: BASOPHILS ABSOLUTE AUTO 0.03 K/mm3 (0.00-0.23); BASOPHILS PERCENT AUTO 0 % (0-2); EOSINOPHILS ABSOLUTE AUTO 0.17 K/mm3 (0.00-0.68); EOSINOPHILS PERCENT AUTO 2 % (0-6); Hematocrit 33.5 % (33.0-51.0); Hemoglobin 10.5 g/dL (11.5-16.0); IMMATURE GRAN ABSOLUTE AUTO 0.01 K/mm3 (0.00-0.10); IMMATURE GRAN PERCENT AUTO 0 % (0-1); LYMPHOCYTES ABSOLUTE AUTO 2.52 K/mm3 (0.84-5.20); LYMPHOCYTES PERCENT AUTO 32 % (21-46); MONOCYTES ABSOLUTE AUTO 0.86 K/mm3 (0.16-1.47); MONOCYTES PERCENT AUTO 11 % (4-13); Mean Corpuscular HGB 29.2 pg (26.0-34.0); Mean Corpuscular HGB Conc 31.3 g/dL (31.5-36.5); Mean Corpuscular Volume 93 fL (80-100); Mean Platelet Volume 12.2 fL (9.1-12.4); NEUTROPHILS PERCENT AUTO 55 % (41-73); Platelet Count 152 K/mm3 (150-400); RDW Coefficient Variation 14.1 % (11.7-14.2); RDW Standard Deviation 48.5 fL (35.1-46.3); Red Blood Cell Count 3.59 M/mm3 (3.80-5.20); White Blood Cell Count 7.89 K/mm3 (4.00-11.30)
[2023-04-22 06:41] LABS: Magnesium, Blood 2.1 mg/dL (1.6-2.4)
[2023-04-22 06:42] LABS: Bun/Creatinine Ratio 51.1 (12.0-20.0); Calcium, Blood 8.8 mg/dL (8.5-10.1); Creatinine, Blood 0.98 mg/dL (0.40-1.00); Potassium, Blood 4.2 mmol/L (3.5-5.5)
[2023-04-22 07:26] VITALS: BP 151/57
[2023-04-22 15:18] VITALS: BP 169/57
--- NOTE | 2023-04-22 17:20 | NUR ---
PT AOX4 AND COOPERATIVE AND PLEASANT OF ALL CARE. PT DENIED PAIN AND IS INDEPENDENT WITH WALKER. NO DISTRESS NOTED AND CALL LIGHT WITHIN REACH. SHE ALSO HAS A FAMILY MEMEBER STAYING IN THE ROOM TO LOOK AFTER HER. WILL CONTINUE TO MONITOR.
[2023-04-22 20:35] VITALS: BP 150/102
[2023-04-23 04:04] VITALS: BP 129/51
--- NOTE | 2023-04-23 04:26 | NUR ---
SHIFT SUMMARY. PATIENT AOX4. PATIENT IS INDEPENDENT W/FWW. PATIENT IS PLEASANT AND COOPERATIVE WITH CARE. PATIENT CALLS APPROPRIATELY AND IS ABLE TO MAKE HER NEEDS KNOWN. PATIENTS O2 INCREASED FROM 2 L'S WHEN AWAKE TO 4 L'S WHILE SLEEPING D/T PATIENT DESATTING TO THE MID TO LOW 80'S AT TIMES. DAUGHTER IN AT BEDSIDE T/O NIGHT. NO ACUTE CHANGES NOTED AT THIS TIME. BED IS LOCKED IN THE LOWEST POSITION WITH CALL LIGHT AND WALKER IN REACH. NO S/S/ OF DISTRESS NOTED AT THIS TIME. CARE ONGOING.
[2023-04-23 05:41] LABS: BASOPHILS ABSOLUTE AUTO 0.04 K/mm3 (0.00-0.23); BASOPHILS PERCENT AUTO 1 % (0-2); EOSINOPHILS ABSOLUTE AUTO 0.15 K/mm3 (0.00-0.68); EOSINOPHILS PERCENT AUTO 2 % (0-6); Hematocrit 31.9 % (33.0-51.0); Hemoglobin 9.9 g/dL (11.5-16.0); IMMATURE GRAN ABSOLUTE AUTO 0.03 K/mm3 (0.00-0.10); IMMATURE GRAN PERCENT AUTO 0 % (0-1); LYMPHOCYTES ABSOLUTE AUTO 2.49 K/mm3 (0.84-5.20); LYMPHOCYTES PERCENT AUTO 35 % (21-46); MONOCYTES ABSOLUTE AUTO 0.78 K/mm3 (0.16-1.47); MONOCYTES PERCENT AUTO 11 % (4-13); Mean Corpuscular HGB 28.9 pg (26.0-34.0); Mean Corpuscular Volume 93 fL (80-100); Mean Platelet Volume 11.9 fL (9.1-12.4); NEUTROPHILS ABSOLUTE AUTO 3.62 K/mm3 (1.96-9.15); NEUTROPHILS PERCENT AUTO 51 % (41-73); Platelet Count 140 K/mm3 (150-400); RDW Coefficient Variation 13.8 % (11.7-14.2); RDW Standard Deviation 46.8 fL (35.1-46.3); Red Blood Cell Count 3.43 M/mm3 (3.80-5.20); White Blood Cell Count 7.11 K/mm3 (4.00-11.30)
[2023-04-23 06:30] LABS: Albumin, Blood 1.9 g/dL (3.4-5.0); Albumin/Globulin Ratio 0.5 (0.8-1.8); Bilirubin, Total 0.3 mg/dL (0.1-1.0); Bun/Creatinine Ratio 55.6 (12.0-20.0); Calcium, Blood 8.7 mg/dL (8.5-10.1); Creatinine, Blood 0.97 mg/dL (0.40-1.00); Globulin, Blood 3.5 g/dL (2.2-4.0); Potassium, Blood 3.9 mmol/L (3.5-5.5); Total Protein, Blood 5.4 g/dL (6.4-8.2)
[2023-04-23 07:24] VITALS: BP 154/59
[2023-04-23] MEDS ORDERED: ASPI81CH PO (08:47)
[2023-04-23] MEDS ORDERED: AMLO10 PO (08:47)
[2023-04-23] MEDS ORDERED: Vitamin D1000 UNI1 PO (08:48)
[2023-04-23] MEDS ORDERED: DICLOFENAC SOD100 GM TOP (08:49)
[2023-04-23] MEDS ORDERED: HYDCHL25 PO (08:50)
[2023-04-23] MEDS ORDERED: Avapro300 MG PO (08:51)
[2023-04-23 15:11] VITALS: BP 147/53
--- NOTE | 2023-04-23 18:14 | NUR ---
pt sitting up on the side of the bed a/ox4, pleasant and cooperative with care, follows commands well, denies pain, in good spirits, lungs are clear in upper duncan, dim with fine crackles in bases, resp even and unlabored, no cough noted, hrr, trace edema noted to b/l le, ppp+1, cap refill<3 sec, vs stable, afebrile, piv to lfa, site clear and patent, btx4, abd flat soft nontender, voids without diff, skin c/w/d, maew, ambulates with a walker, ren, call light in reach.
--- NOTE | 2023-04-23 18:22 | NUR ---
pt sitting up in bed, started stress test today, will keep npo after midnight for second part in am, iv leaking, new 20g placed to rfa with good blood return, flushes well, leaking iv was removed intact, no further changes this shift. call light in reach.
[2023-04-23 19:38] VITALS: BP 171/63
[2023-04-24 05:20] LABS: BASOPHILS ABSOLUTE AUTO 0.03 K/mm3 (0.00-0.23); BASOPHILS PERCENT AUTO 0 % (0-2); EOSINOPHILS PERCENT AUTO 3 % (0-6); Hematocrit 33.8 % (33.0-51.0); Hemoglobin 10.7 g/dL (11.5-16.0); IMMATURE GRAN ABSOLUTE AUTO 0.01 K/mm3 (0.00-0.10); IMMATURE GRAN PERCENT AUTO 0 % (0-1); LYMPHOCYTES ABSOLUTE AUTO 2.22 K/mm3 (0.84-5.20); LYMPHOCYTES PERCENT AUTO 29 % (21-46); MONOCYTES ABSOLUTE AUTO 0.79 K/mm3 (0.16-1.47); MONOCYTES PERCENT AUTO 10 % (4-13); Mean Corpuscular HGB 29.2 pg (26.0-34.0); Mean Corpuscular HGB Conc 31.7 g/dL (31.5-36.5); Mean Corpuscular Volume 92 fL (80-100); NEUTROPHILS ABSOLUTE AUTO 4.55 K/mm3 (1.96-9.15); NEUTROPHILS PERCENT AUTO 58 % (41-73); Platelet Count 169 K/mm3 (150-400); RDW Coefficient Variation 13.6 % (11.7-14.2); RDW Standard Deviation 46.3 fL (35.1-46.3); Red Blood Cell Count 3.66 M/mm3 (3.80-5.20)
[2023-04-24 05:28] VITALS: BP 133/53
[2023-04-24 05:41] LABS: Bun/Creatinine Ratio 56.4 (12.0-20.0); Calcium, Blood 8.9 mg/dL (8.5-10.1); Creatinine, Blood 1.1 mg/dL (0.40-1.00); Potassium, Blood 4.1 mmol/L (3.5-5.5)
[2023-04-24 07:19] VITALS: BP 141/56
--- NOTE | 2023-04-24 07:48 | NUR ---
SHIFT SUMMARY. PATIENT IS ALERT AND ORIENTED X4. PATIENT IS PLEASANT, BEJARANO APPROPRIATELY AND IS ABLE TO MAKE NEEDS KNOWN. PATIENT IS ON 4 L'S OF OXYGEN AT NIGHT-SATTING >93% ON CONTINUOUS BIOX. PATIENT NPO SINCE MIDNIGHT FOR SECOND HALF OF STRESS TEST TO BE DONE THIS MORNING. NO ACUTE CHANGES NOTED THIS SHIFT. BED IS LOCKED IN THE LOWEST POSITION WITH CALL LIGHT AND FWW IN REACH. NO S/S OF DISTRESS NOTED.
[2023-04-24 15:38] VITALS: BP 127/58
--- NOTE | 2023-04-24 17:23 | NUR ---
NO ACUTE CHANGES PT IS AOX4 AND COOPERATIVE OF CARE. SECOND PART OF STRESS TEST COMPLETED. PT DENIES PAIN AND IS INDEPENDENT IN ROOM. CALL LIGHT IS WITHIN REACH WILL CONTINUE TO MONITOR.
[2023-04-24 20:40] VITALS: BP 112/77
--- NOTE | 2023-04-25 04:31 | NUR ---
SHIFT SUMMARY EUSEBIO WAS ALERT AND FULLY ORIENTED AT THE START OF THE SHIFT W/ DAUGHTER AT BEDSIDE, CAN AMBULATE INDEPENDENTLY. PT ON 3L O2 VIA NC SATTING MID 90'S. NO ACUTE EVENTS TONIGHT, NO NOTED CHANGES IN PT CONDITION. PT RESTING IN BED AT A LOW POSITION WITH CALL LIGHT IN REACH.
[2023-04-25 04:33] VITALS: BP 129/54
[2023-04-25 07:39] VITALS: BP 149/52
[2023-04-25] MEDS ORDERED: METO25ER PO (13:26)
[2023-04-25] MEDS ORDERED: JARDIANCE10 MG PO (13:26)
--- NOTE | 2023-04-25 15:13 | NUR ---
DISCHARGE SUMMARY PATIENT WITH LOWER HR TODAY, DR YORK NOTIFIED, METOPROLOL HELD WITH HR AT 55. HOLDING PARAMETERS PROVIDED TO PATIENT AND DAUGHTER BY DR YORK AND REINFORCED BY THIS MAINTENANCE SHOP TECHNICIAN. TAKE METOPROLOL 50MG IF HR ABOVE 70, TAKE 25MG IF HR ABOVE 55 BUT BELOW 70, HOLD DOSE COMPLETELY IF HR BELOW 55. HOLD LISINOPRIL IF BP BELOW 110 SYSTOLIC. MEDICATION AND EDUCATION PACKET PRINTED FOR PATIENT AND ALL QUESTIONS ANSWERED.PATIENT LEFT UNIT AT 1435 VIA TRANPORT CHAIR WITH MADISON DRIVER TRAINEE AND VIA PRIVAT VEHICLE WITH DAUGHTER.
== END 2023-04-25 14:42 | disposition home or self-care (01) | DRG 291 ==
LOC: ER 18:28 → ERHOLD 18:29 → MEDS 04-19 15:48
PROVIDERS: Emergency Medicine; Internal Medicine; ADMIT Student in an Organized Health Care Education/Training Program
DX: I13.0 Hypertensive heart and chronic kidney disease with heart failure and stage 1 through stage 4 chronic kidney disease, or unspecified chronic kidney disease (principal); I50.33 Acute on chronic diastolic (congestive) heart failure; J96.21 Acute and chronic respiratory failure with hypoxia; Z66 Do not resuscitate; E78.5 Hyperlipidemia, unspecified; E11.42 Type 2 diabetes mellitus with diabetic polyneuropathy; E11.51 Type 2 diabetes mellitus with diabetic peripheral angiopathy without gangrene; E11.22 Type 2 diabetes mellitus with diabetic chronic kidney disease; N18.9 Chronic kidney disease, unspecified; F17.200 Nicotine dependence, unspecified, uncomplicated; Z86.718 Personal history of other venous thrombosis and embolism; Z79.02 Long term (current) use of antithrombotics/antiplatelets; Z79.84 Long term (current) use of oral hypoglycemic drugs; Z89.432 Acquired absence of left foot; Z71.6 Tobacco abuse counseling; Z28.21 Immunization not carried out because of patient refusal
CPT/HCPCS: 36415; 71046; 78452; 80048; 80053; 82947; 83036; 83690; 83735; 83880; 84145; 84484; 85025; 93005; 93010; 93017; 93306; 94640; 94664; 94761; 94762; 96374; 96376; 96376-59; 99285-25; A9270; A9500; G0378; J0280; J1940; J2785

== ENCOUNTER 2024-01-09 12:28 | Inpatient (IN) | payer MEDICARE ==
[~2024-01-09] VITALS: Ht 152.4 cm; Wt 94.5 kg
[~2024-01-09 12:28] MED LIST changes: +ALBU90OI INH; +AMLO10 PO; +ANORO ELLIPTA1 EACH INH; +ASPI81CH PO; -ATOR40TA PO; +ATOR80 PO; +Avapro300 MG PO; +CHANTIX1 MG PO; +DICLOFENAC SOD100 GM TOP; +HYDCHL25 PO; +JARDIANCE10 MG PO; +METO25ER PO; +PIOG30 PO; +TOUJEO SOL300 UNIT/2 SC; +Vitamin D1000 UNI1 PO
[2024-01-09 15:13] LABS: BASOPHILS ABSOLUTE AUTO 0.05 K/mm3 (0.00-0.23); BASOPHILS PERCENT AUTO 1 % (0-2); EOSINOPHILS ABSOLUTE AUTO 0.07 K/mm3 (0.00-0.68); EOSINOPHILS PERCENT AUTO 1 % (0-6); Hematocrit 21.1 % (33.0-51.0); Hemoglobin 6.4 g/dL (11.5-16.0); IMMATURE GRAN ABSOLUTE AUTO 0.06 K/mm3 (0.00-0.10); IMMATURE GRAN PERCENT AUTO 1 % (0-1); LYMPHOCYTES ABSOLUTE AUTO 2.37 K/mm3 (0.84-5.20); LYMPHOCYTES PERCENT AUTO 21 % (21-46); MONOCYTES ABSOLUTE AUTO 0.66 K/mm3 (0.16-1.47); MONOCYTES PERCENT AUTO 6 % (4-13); Mean Corpuscular HGB 26.8 pg (26.0-34.0); Mean Corpuscular HGB Conc 30.3 g/dL (31.5-36.5); Mean Corpuscular Volume 88 fL (80-100); Mean Platelet Volume 12.3 fL (9.1-12.4); NEUTROPHILS ABSOLUTE AUTO 7.86 K/mm3 (1.96-9.15); NEUTROPHILS PERCENT AUTO 71 % (41-73); Platelet Count 221 K/mm3 (150-400); RDW Coefficient Variation 20.3 % (11.7-14.2); RDW Standard Deviation 61.2 fL (35.1-46.3); Red Blood Cell Count 2.39 M/mm3 (3.80-5.20); White Blood Cell Count 11.07 K/mm3 (4.00-11.30)
[2024-01-09] MEDS ORDERED: Pantoprazole Sodium 40 MG Injection IV ONE (15:25)
[2024-01-09] MEDS ORDERED: Phenylephrine HCl 100 MCG/ML-NS 10MLSYR (1MG/10ML) IV ONE (15:28)
[2024-01-09 16:01] LABS: Albumin, Blood 2.1 g/dL (3.4-5.0); Albumin/Globulin Ratio 0.6 (0.8-1.8); Bilirubin, Total 0.2 mg/dL (0.1-1.0); Bun/Creatinine Ratio 59.4 (12.0-20.0); Calcium, Blood 8.1 mg/dL (8.5-10.1); Creatinine, Blood 1.55 mg/dL (0.40-1.00); Globulin, Blood 3.5 g/dL (2.2-4.0); Potassium, Blood 7.5 mmol/L (3.5-5.5); Total Protein, Blood 5.6 g/dL (6.4-8.2)
[2024-01-09] MEDS ORDERED: Calcium Gluconate 10% 100 MG/ML INJ IV ONE (16:05)
[2024-01-09] MEDS ORDERED: Sodium Bicarb 8.4% 1 MEQ/ML 50 ML Vial IV ONE ×2 (16:05→20:35)
[2024-01-09] MEDS ORDERED: Insulin Regular 100 Unit/ML 1ML Dose IV ONE ×2 (16:05→20:35)
[2024-01-09] MEDS ORDERED: Dextrose 50% 50 ML Syringe IV ONE (16:10)
[2024-01-09] MEDS ORDERED: Dextrose 50% 50 ML Vial IV ONE ×2 (16:20→20:35)
[2024-01-09] MEDS ORDERED: NS 1,000 ML IV ONE (16:24)
[2024-01-09 16:34] LABS: International Normalized Ratio 1.16; Prothrombin Time Results 12.3 Sec (9.7-11.5)
[2024-01-09] MEDS ORDERED: NS 1,000 ML IV SCH (19:21)
[2024-01-09] MEDS ORDERED: Ondansetron HCl 2 MG / ML 2ML Vial IV PRN (19:30)
[2024-01-09] MEDS ORDERED: FLU VACC TS2024-25(6MOS UP)/PF 45 MCG/0.5 ML SYRINGE IM ONE (19:30)
[2024-01-09] MEDS ORDERED: Ipratropium/Albuterol SulF 2.5-0.5MG/3 ML Amp INH SCH (19:35)
[2024-01-09] MEDS ORDERED: Albuterol 2.5 MG/3 ML VIAL INH PRN (19:35)
[2024-01-09] MEDS ORDERED: Furosemide 10 MG/ML 4ML Vial IV ONE (20:00)
[2024-01-09] MEDS ORDERED: Insulin Glargine-Yfgn 100 Unit/mL 3 ML SYR SC SCH (20:00)
[2024-01-09] MEDS ORDERED: NS 500 ML IV ONE (20:00)
[2024-01-09 20:10] LABS: Bun/Creatinine Ratio 53.6 (12.0-20.0); Creatinine, Blood 1.66 mg/dL (0.40-1.00)
[2024-01-09 20:13] LABS: Potassium, Blood 6.4 mmol/L (3.5-5.5)
[2024-01-09] MEDS ORDERED: Pantoprazole Sodium 40 MG Injection IV SCH (21:00)
[2024-01-09] MEDS ORDERED: Gabapentin 300 MG Cap PO SCH (21:00)
[2024-01-09] MEDS ORDERED: Sodium Zirconium Cyclosilicate 10 GM Packet PO ONE (21:00)
[2024-01-09 21:05] LABS: Source, Urine Clean Catch
[2024-01-09 21:08] LABS: Appearance, Urine Clear (Clear); Bilirubin, Urine Neg (Neg); Blood, Urine 2+ (Neg); Color, Urine Yellow (P-Yellow); Glucose Qualitative, Urine 2+ (Neg); Ketones, Urine Neg (Neg); Leukocyte Esterase, Urine Neg (Neg); Nitrite, Urine Neg (Neg); Protein, Urine 4+ (Neg); Specific Gravity, Urine 1.015 (1.003-1.022); Urobilinogen, Urine NORM (Normal)
[2024-01-09 21:29] LABS: Amorphous Light (0-Heavy); Bacteria Few /hpf; Granular Casts 0-2 /lpf (0); Hyaline Casts 0-2 /lpf (0-2); Red Blood Cells, Urine 0-2 /hpf (0-2); Squamous Epithelial Cells Few /hpf (Few); White Blood Cells, Urine 0-2 /hpf (0-5)
[2024-01-09 23:46] LABS: Hematocrit 23.6 % (33.0-51.0); Hemoglobin 7.4 g/dL (11.5-16.0)
[2024-01-10] MEDS ORDERED: Insulin Human Lispro 100 Units/ML 3ML Syringe SC SCH
[2024-01-10 00:59] LABS: Bun/Creatinine Ratio 51.5 (12.0-20.0); Calcium, Blood 7.5 mg/dL (8.5-10.1); Creatinine, Blood 1.65 mg/dL (0.40-1.00); Potassium, Blood 6.1 mmol/L (3.5-5.5)
[2024-01-10] MEDS ORDERED: Dextrose 50% 50 ML Vial IV ONE ×3 (01:15→07:35)
[2024-01-10] MEDS ORDERED: Insulin Regular 100 Unit/ML 1ML Dose IV ONE ×3 (01:15→07:25)
[2024-01-10] MEDS ORDERED: Sodium Bicarb 8.4% Inj 150 MEQ in Dextrose 5% 1,000 ML IV SCH ×2 (01:25→05:00)
[2024-01-10 02:52] LABS: Hematocrit 22.8 % (33.0-51.0); Hemoglobin 7.1 g/dL (11.5-16.0)
[2024-01-10 03:52] LABS: Bun/Creatinine Ratio 48.9 (12.0-20.0); Calcium, Blood 7.6 mg/dL (8.5-10.1); Creatinine, Blood 1.76 mg/dL (0.40-1.00); Potassium, Blood 6.1 mmol/L (3.5-5.5)
[2024-01-10 04:34] LABS: Hematocrit 24.3 % (33.0-51.0); Hemoglobin 7.5 g/dL (11.5-16.0)
[2024-01-10] MEDS ORDERED: Furosemide 10 MG/ML 4ML Vial IV ONE (05:00)
[2024-01-10 05:22] LABS: Albumin, Blood 1.9 g/dL (3.4-5.0); Albumin/Globulin Ratio 0.6 (0.8-1.8); Bilirubin, Total 0.2 mg/dL (0.1-1.0); Bun/Creatinine Ratio 48.9 (12.0-20.0); Calcium, Blood 7.5 mg/dL (8.5-10.1); Creatinine, Blood 1.74 mg/dL (0.40-1.00); Globulin, Blood 3.2 g/dL (2.2-4.0); Total Protein, Blood 5.1 g/dL (6.4-8.2)
[2024-01-10 05:24] LABS: Potassium, Blood 6.1 mmol/L (3.5-5.5)
[2024-01-10] MEDS ORDERED: Dextrose 50% 50 ML Syringe IV ONE (07:25)
[2024-01-10] MEDS ORDERED: Sodium Zirconium Cyclosilicate 10 GM Packet PO SCH ×2 (08:00→09:00)
[2024-01-10] MEDS ORDERED: Metoprolol Succinate 25 MG TABCR PO SCH ×2 (09:00)
[2024-01-10] MEDS ORDERED: Atorvastatin 40 MG Tab PO SCH (09:00)
[2024-01-10 09:04] LABS: Bun/Creatinine Ratio 45.7 (12.0-20.0); Calcium, Blood 7.9 mg/dL (8.5-10.1); Creatinine, Blood 1.73 mg/dL (0.40-1.00); Potassium, Blood 5.3 mmol/L (3.5-5.5)
[2024-01-10 13:07] VITALS: BP 138/64
[2024-01-10 15:11] VITALS: BP 139/54
[2024-01-10 15:14] LABS: Hematocrit 26.4 % (33.0-51.0); Hemoglobin 8.4 g/dL (11.5-16.0)
--- NOTE | 2024-01-10 15:25 | NUR ---
PT REPORTING THAT HER VISION IS CHANGING AND IT IS "LOOKING FUZZY ". SHE STATED THIS IS HOW HER VISION LOSS STARTED THREE DAYS AGO. THE PT STATES THAT THE BLOOD TRANSFUSIONS SHE RECIEVED IN THE ER RESOLVED HER VISION ISSUES YESTERDAY 01/08. DR. PARISH NOTIFIED OF THE PT'S COMPLAINTS AND ORDERED REPEAT H&H. SEE NOTES FOR UPDATES.
[2024-01-10 15:48] LABS: Bun/Creatinine Ratio 47.1 (12.0-20.0); Calcium, Blood 7.4 mg/dL (8.5-10.1); Creatinine, Blood 1.55 mg/dL (0.40-1.00); Potassium, Blood 4.8 mmol/L (3.5-5.5)
[2024-01-10] MEDS ORDERED: HydrALAZINE HCl 20 MG / ML 1ML Vial IV PRN (16:45)
[2024-01-10] MEDS ORDERED: D5W-1/2NS 1,000 ML IV SCH (16:45)
--- NOTE | 2024-01-10 17:30 | NUR ---
SHIFT SUMMARY THE PT WAS A NEW ADMIT THIS SHIFT. SHE IS A&OX4, CALLS APPROPRIATELY, AND MAKES HER NEEDS KNOWN. SHE IS SBA FOR LINE MANAGEMENT IN THE ROOM. Q6 CBG AND INSULIN PER EMAR. DR. ANGEL CAME TO BEDSIDE AND IS PLANNING FOR AND UPPER AND LOWER SCOPE ON THE PT TOMORROW W/ DR. RODRIGUEZ. STARTING BOWEL PREP TONIGHT PER ORDERS. THE PT IS ON RA WHILE AWAKE AND REQUIRES 2-3LNC WHILE ASLEEP. SHE DESATURATED TO 70% ON RA WHILE ASLEEP. AT BASELINE SHE WEARS 3LNC WHEN SLEEPING. ON TELE SHE HAS BEEN SR 50'S-70'S. BP STABLE. SEE NOTES FOR ANY UPDATES.
[2024-01-10] MEDS ORDERED: Sodium, Potassium,Mag Sulfates 354 ML PO SCH (18:00)
[2024-01-10 20:55] VITALS: BP 119/63
[2024-01-10] MEDS ORDERED: Miconazole Nitrate 2% 85 GM PWD TOP SCH (21:00)
[2024-01-10 21:14] LABS: Hematocrit 23.6 % (33.0-51.0); Hemoglobin 7.5 g/dL (11.5-16.0)
[2024-01-10 23:59] VITALS: BP 137/51
[2024-01-11] VITALS (18 sets, daily range): BP systolic 96–153; BP diastolic 42–104
--- NOTE | 2024-01-11 02:25 | NUR ---
PHYSICIAN COMMUNICATION CONTACTED ENGINEERING PRODUCTION WORKER PHYSICIAN, DR LINDSEY, TO NOTIFY HIM THAT THE PATIENT CONVERTED FROM SINUS RHYTHM TO AFIB AROUND MIDNIGHT, BUT WAS SLEEPING. HOWEVER, AROUND 0145 THE PATIENT WOKE UP TO USE THE COMMODE AND THE HEART RATE WENT FROM 110-120'S TO AVERAGING IN THE 130'S REACHING 140'S WITH ACTIVITY AND THE PATIENT WAS COMPLAINING OF FEELING LIKE HER HEART WAS BEATING OUT OF HER CHEST. DR LINDSEY INPUT ORDERS. MEDICATED PATIENT PER EMAR, WILL CONTINUE TO MONITOR.
[2024-01-11 02:32] LABS: BASOPHILS ABSOLUTE AUTO 0.05 K/mm3 (0.00-0.23); BASOPHILS PERCENT AUTO 1 % (0-2); EOSINOPHILS ABSOLUTE AUTO 0.31 K/mm3 (0.00-0.68); EOSINOPHILS PERCENT AUTO 3 % (0-6); Hemoglobin 7.6 g/dL (11.5-16.0); IMMATURE GRAN ABSOLUTE AUTO 0.03 K/mm3 (0.00-0.10); IMMATURE GRAN PERCENT AUTO 0 % (0-1); LYMPHOCYTES ABSOLUTE AUTO 2.49 K/mm3 (0.84-5.20); LYMPHOCYTES PERCENT AUTO 24 % (21-46); MONOCYTES ABSOLUTE AUTO 0.88 K/mm3 (0.16-1.47); MONOCYTES PERCENT AUTO 8 % (4-13); Mean Corpuscular HGB 27.9 pg (26.0-34.0); Mean Corpuscular HGB Conc 31.7 g/dL (31.5-36.5); Mean Corpuscular Volume 88 fL (80-100); Mean Platelet Volume 11.7 fL (9.1-12.4); NEUTROPHILS ABSOLUTE AUTO 6.67 K/mm3 (1.96-9.15); NEUTROPHILS PERCENT AUTO 64 % (41-73); Platelet Count 197 K/mm3 (150-400); RDW Coefficient Variation 19.2 % (11.7-14.2); RDW Standard Deviation 57.7 fL (35.1-46.3); Red Blood Cell Count 2.72 M/mm3 (3.80-5.20); White Blood Cell Count 10.43 K/mm3 (4.00-11.30)
[2024-01-11 02:54] LABS: Albumin, Blood 2.1 g/dL (3.4-5.0); Albumin/Globulin Ratio 0.7 (0.8-1.8); Bilirubin, Total 0.3 mg/dL (0.1-1.0); Bun/Creatinine Ratio 42.6 (12.0-20.0); Calcium, Blood 7.3 mg/dL (8.5-10.1); Creatinine, Blood 1.55 mg/dL (0.40-1.00); Globulin, Blood 3.1 g/dL (2.2-4.0); Potassium, Blood 4.6 mmol/L (3.5-5.5); Total Protein, Blood 5.2 g/dL (6.4-8.2)
[2024-01-11] MEDS ORDERED: Metoprolol Tartrate 1 MG/ML 5 ML VIAL IV PRN (03:00)
[2024-01-11] MEDS ORDERED: Metoprolol Tartrate 1 MG/ML 5 ML VIAL IV ONE (03:00)
--- NOTE | 2024-01-11 05:33 | NUR ---
SHIFT SUMMARY PATIENT ALERT AND ORIENTED X4. PATIENT DENIED ANY PAIN OR SHORTNESS OF BREATH. PATIENT PLACED ON 3 LITERS O2 VIA NC WHILE SLEEPING TO HELP MAINTAIN SPO2 >90%. VITAL SIGNS STABLE, SHE CONVERTED BACK INTO SINUS RHYTHM FROM AFIB AROUND 0511 THIS MORNING. NO OTHER ISSUES NOTED, PATIENT CURRENTLY SLEEPING. WILL CONTINUE TO MONITOR. CALL LIGHT WITHIN REACH.
[2024-01-11] MEDS ORDERED: Furosemide 10 MG/ML 4ML Vial IV SCH (09:00)
[2024-01-11 10:08] LABS: Hematocrit 26.1 % (33.0-51.0); Hemoglobin 8.1 g/dL (11.5-16.0)
[2024-01-11] MEDS ORDERED: Lactated Ringer's 1,000 ML IV SCH (12:05)
[2024-01-11] MEDS ORDERED: propofoL 60 ML IV ONE (12:19)
[2024-01-11] MEDS ORDERED: Lidocaine HCl 4% 5 ML SDA ONE (12:21)
[2024-01-11] MEDS ORDERED: Lidocaine HCl 4% 5 ML SDA INH ONE (12:25)
--- NOTE | 2024-01-11 12:28 | NUR ---
PT HAS 20G IV TO RIGHT AC THAT FLUSHES WELL. PT ALSO HAS 20G IV TO LEFT FOREARM THAT FLUSHES WELL AND FLOWS TO GRAVITY.
--- NOTE | 2024-01-11 12:44 | NUR ---
01/11/24 1244 Mariella Love History, Chart, Medications and Allergies reviewed before start of procedure.MONITOR INTACT WITH CONTINUOUS PULSE OXIMETRY, CONTINUOUS END TITAL CO2, AND INTERMITTENT BLOOD PRESSURE.3-LEAD EKG REVIEWED WITH PHYSICIAN PRIOR TO START OF PROCEDURE.LIDO 4% NEB PRIOR TO PROCEDURE. Bite Block Placed. DR. MENDEZ PROVIDING MAC-SEE ANESTHESIA RECORD.
[2024-01-11] MEDS ORDERED: propofoL 20 ML IV ONE ×3 (13:26→13:57)
--- NOTE | 2024-01-11 14:44 | NUR ---
PT BACK IN ROOM FROM EGD AND COLONOSCOPY. REPORT FROM CARA Kilgore RN. THE PT IS DROWSY BUT ORIENTEDX4, AND FEELS "GOOFY AND SLEEPY". HER VITAL SIGNS ARE STABLE. SEQUENCE VITALS SET UP. SP02 >93% ON RA. SHE WAS PLACED ON HER 3L NC D/T HER DROWSINESS AND NEED OF OXYGEN WHEN SHE IS ALSEEP. THE PT HAS HER MOTHER AT BEDSIDE AND HER DUAGHTER IS ON THE WAY. DR. EAGLE IS NOW AT BEDSIDE TALKING WITH THE PT AND FAMILY.
[2024-01-11 15:30] LABS: Hematocrit 23.3 % (33.0-51.0); Hemoglobin 7.4 g/dL (11.5-16.0)
--- NOTE | 2024-01-11 17:28 | NUR ---
PATIENT TO TRANSFER TO [facility] FLOOR 342. RN IS NOT AVAILABLE WILL CALL THIS RN BACK.
[2024-01-11 21:17] LABS: Hematocrit 23.8 % (33.0-51.0); Hemoglobin 7.4 g/dL (11.5-16.0)
[2024-01-12] VITALS (7 sets, daily range): BP systolic 109–181; BP diastolic 55–157
[2024-01-12 03:24] LABS: BASOPHILS ABSOLUTE AUTO 0.04 K/mm3 (0.00-0.23); BASOPHILS PERCENT AUTO 0 % (0-2); EOSINOPHILS ABSOLUTE AUTO 0.23 K/mm3 (0.00-0.68); EOSINOPHILS PERCENT AUTO 3 % (0-6); Hematocrit 21.9 % (33.0-51.0); Hemoglobin 6.9 g/dL (11.5-16.0); IMMATURE GRAN ABSOLUTE AUTO 0.03 K/mm3 (0.00-0.10); IMMATURE GRAN PERCENT AUTO 0 % (0-1); LYMPHOCYTES ABSOLUTE AUTO 2.06 K/mm3 (0.84-5.20); LYMPHOCYTES PERCENT AUTO 22 % (21-46); MONOCYTES ABSOLUTE AUTO 1.08 K/mm3 (0.16-1.47); MONOCYTES PERCENT AUTO 12 % (4-13); Mean Corpuscular HGB Conc 31.5 g/dL (31.5-36.5); Mean Corpuscular Volume 89 fL (80-100); Mean Platelet Volume 11.3 fL (9.1-12.4); NEUTROPHILS ABSOLUTE AUTO 5.78 K/mm3 (1.96-9.15); NEUTROPHILS PERCENT AUTO 63 % (41-73); Platelet Count 166 K/mm3 (150-400); RDW Coefficient Variation 19.3 % (11.7-14.2); RDW Standard Deviation 61.2 fL (35.1-46.3); Red Blood Cell Count 2.46 M/mm3 (3.80-5.20); White Blood Cell Count 9.22 K/mm3 (4.00-11.30)
[2024-01-12 03:42] LABS: Magnesium, Blood 2.1 mg/dL (1.6-2.4)
[2024-01-12 03:44] LABS: Albumin/Globulin Ratio 0.6 (0.8-1.8); Bilirubin, Total 0.3 mg/dL (0.1-1.0); Bun/Creatinine Ratio 34.4 (12.0-20.0); Calcium, Blood 7.6 mg/dL (8.5-10.1); Creatinine, Blood 1.63 mg/dL (0.40-1.00); Globulin, Blood 3.1 g/dL (2.2-4.0); Phosphorus, Blood 5.4 mg/dL (2.5-4.9); Potassium, Blood 6.5 mmol/L (3.5-5.5); Total Protein, Blood 5.1 g/dL (6.4-8.2)
[2024-01-12] MEDS ORDERED: Dextrose 50% 50 ML Syringe IV ONE (04:15)
[2024-01-12] MEDS ORDERED: Insulin Regular 100 UNIT/ML 10ML Vial IV ONE (04:15)
[2024-01-12] MEDS ORDERED: CALCIUM GLUC IN NACL, ISO-OSM 100 ML IV ONE (04:25)
[2024-01-12] MEDS ORDERED: NS 500 ML IV SCH (04:40)
--- NOTE | 2024-01-12 06:10 | NUR ---
CONTACTED BY LAB WITH CRITICAL POTASSIUM LEVEL 6.5. CALLED DANCE COSTUME DESIGNER DR AND ADMINISTERED 5% DEXTROSE 250ML, 5 UNITS HUMULIN, 100ML CALCIUM GLUCONATE. PT TOLERATED WELL.
--- NOTE | 2024-01-12 06:14 | NUR ---
SHIFT SUMMARY PT IS ALERT AND ORIENTED TIMES 4. PT RECEPTIVE TO CARE, ABLE TO MAKE NEEDS KNOWN, CLEAR LIQUID DIET ORDER DC D. PT HAD ENDOSCOPY EARLIER TODAY, FOR UPPER GI BLEED. PT IS INDEPENDENT AND ABLE TO AMBULATE TO TOILET. PT ON 3L O2 AT NIGHT. PT STATES SHE SCD S THE OTHER DAY BUT THEY TOOK THEM OFF. CRITICAL POTASSIUM 6.5 ONCALL CONTACTED. BED IN LOW POSITION, CALL LIGHT WITHIN REACH, RAILS TIMES 2.
[2024-01-12] MEDS ORDERED: Sodium Zirconium Cyclosilicate 10 GM Packet PO SCH (09:00)
[2024-01-12] MEDS ORDERED: Sodium Chloride 0.45% 1,000 ML IV SCH (10:05)
[2024-01-12] MEDS ORDERED: HydrALAZINE HCl 10 MG Tab PO SCH (11:00)
[2024-01-12] MEDS ORDERED: Isosorbide Mononitrate 30 MG TABCR PO SCH (11:00)
[2024-01-12] MEDS ORDERED: Insulin Human Lispro 100 Units/ML 3ML Syringe SC SCH (11:30)
[2024-01-12 13:00] LABS: Albumin, Blood 2.2 g/dL (3.4-5.0); Anion Gap 12 mmol/L (3-11); Blood Urea Nitrogen 51 mg/dL (8-24); CO2, Blood 22 mmol/L (21-32); Calcium, Blood 8.4 mg/dL (8.5-10.1); Chloride, Blood 108 mmol/L (98-108); Glomerular Filtration Rate 38 (60-); Glucose, Blood 91 mg/dL (70-99); Phosphorus, Blood 5.3 mg/dL (2.5-4.9); Potassium, Blood 6.3 mmol/L (3.5-5.5); Sodium, Blood 136 mmol/L (136-145)
--- NOTE | 2024-01-12 18:01 | NUR ---
SHIFT SUMMARY; PATIENT HAS PLEASANT AFFECT. SHE IS COOPEREATIVE WITH CARE. RECEIVED 1 UNIT PRBC'S FOR LOW HGB OF 6.9. KCL OF 6.5 TODAY AND RECEIVED INSULIN CALCIUM GLUCONATE AND D5. KCL THIS AFTERNOON IS 6.3 NOTIFIED AND NO NEW ORDERS RECEIVED. PATIENT HAD ECHO, RENAL ULTRASOUND AND ABDOMINAL XRAY TODAY. SHE REMAINS TENDER IN HER ABDOMEN AND DISTENDED. PER REMAINS ON CLEAR LIQUID DIET. BLOOD SUGARS ARE NOW AC AND HS. PER IVAN WILL HAVE A SURGERY IN THE NEXT FEW DAYS FOR A CARMEN COLECTOMY. SHE IS INDEPENDANT IN THE ROOM. NS 0.45 INFUSING AT 50ML/HR ORDERED. WILL CONTINUE TO MONITOR THIS PATIENT CLOSELY UNTIL REPORT AND HAND OFF TO NOC SHIFT RN.
[2024-01-12] MEDS ORDERED: SOAANZ20 M3 PO (19:17)
[2024-01-12] MEDS ORDERED: MAGNESIUM OXID500 MG PO (19:50)
[2024-01-12] MEDS ORDERED: NITR.4SL SL (19:51)
[2024-01-13 04:16] LABS: Bun/Creatinine Ratio 31.1 (12.0-20.0); Calcium, Blood 7.9 mg/dL (8.5-10.1); Creatinine, Blood 1.32 mg/dL (0.40-1.00); Potassium, Blood 5.7 mmol/L (3.5-5.5)
[2024-01-13 04:20] LABS: BASOPHILS ABSOLUTE AUTO 0.04 K/mm3 (0.00-0.23); BASOPHILS PERCENT AUTO 1 % (0-2); EOSINOPHILS ABSOLUTE AUTO 0.17 K/mm3 (0.00-0.68); EOSINOPHILS PERCENT AUTO 2 % (0-6); Hematocrit 24.3 % (33.0-51.0); Hemoglobin 7.8 g/dL (11.5-16.0); IMMATURE GRAN ABSOLUTE AUTO 0.03 K/mm3 (0.00-0.10); IMMATURE GRAN PERCENT AUTO 0 % (0-1); LYMPHOCYTES ABSOLUTE AUTO 1.66 K/mm3 (0.84-5.20); LYMPHOCYTES PERCENT AUTO 22 % (21-46); MONOCYTES ABSOLUTE AUTO 1.03 K/mm3 (0.16-1.47); MONOCYTES PERCENT AUTO 14 % (4-13); Mean Corpuscular HGB 27.6 pg (26.0-34.0); Mean Corpuscular HGB Conc 32.1 g/dL (31.5-36.5); Mean Corpuscular Volume 86 fL (80-100); NEUTROPHILS ABSOLUTE AUTO 4.67 K/mm3 (1.96-9.15); NEUTROPHILS PERCENT AUTO 62 % (41-73); RDW Coefficient Variation 19.1 % (11.7-14.2); RDW Standard Deviation 58.6 fL (35.1-46.3); Red Blood Cell Count 2.83 M/mm3 (3.80-5.20)
[2024-01-13 04:39] LABS: Platelet Count 169 K/mm3 (150-400)
[2024-01-13 05:03] VITALS: BP 132/62
[2024-01-13 07:24] VITALS: BP 148/54
--- NOTE | 2024-01-13 07:35 | NUR ---
SHIFT SUMMARY PT PLEASANT AND COOPERATIVE WITH CARE THIS SHIFT. DESATTED TO 62% WHEN NC CAME OFF DURRING HER SLEEP. NC REPLACED AND SPO2 RETURNED TO 100%. PT HAD "WORST SEVERO HORSE OF MY LIFE." DURING NIGHT. PHYSICIAN ORDERED LAB WORK STAT, AND STATED HE WAS POSSIBLY GOING TO ORDER MAGNESIUM. PT SLEPT THE REST OF THE NIGHT.
[2024-01-13 14:20] VITALS: BP 181/63
--- NOTE | 2024-01-13 15:35 | NUR ---
NURSING NOTE: LBA NOTIFIED RN OF K OF 6.2, DR RODRIGUEZ INFORMED AT 1533 VIA PHONE.
--- NOTE | 2024-01-13 17:20 | NUR ---
SHIFT SUMMARY: PT AOX4 AND IN GOOD MOOD AND AFFECT. POTASSIUM WAS TRENDING DOWN AND PT CONTINUED ON CLEAR LIQUIDS THROUGH THE DAY. THIS AFTERNOON, SURGEON CAME UP TO CONSENT PT SAYING THAT SURGERY WOULD LIKELY BE TODAY. PT PLACED NPO. ON LAB DRAW, PT HAD CRITICALLY HIGH K. HOSPITALIST AND SURGEON INFORMED. LOKELMA GIVEN. PT WAS TAKEN OFF SCHEDULE TODAY AND SUREGY LIKELY TOMORROW PENDING LABS. PT PLACED ONTO FULL LIQUID DIET AND NPO AT MIDNIGHT. PT UPSET AT DELAY IN SURGERY BUT UNDERSTANDING AFTER BRIEF EXPLANATION OF THE CONCERNS. BLOOD PRESSURE ELEVATED BEFORE NOON DOSE OF HYDRALAZINE BUT IS UNDERCONTROL SINCE. PT CALM AFTER TALKING WITH HER DAUGHTER. PT RESTING IN BED, BED IN LOWEST POSITION, AND CALL LIGHT IN REACH. CONTINUING CARE.
--- NOTE | 2024-01-13 17:45 | NUR ---
THIS FUEL CELL BATTERY TECHNICIAN HAS REVIEWED AND AGREES WITH ALL NOTES AND ASSESSMENTS BY CHAU HERNANDEZ.
[2024-01-13] MEDS ORDERED: Furosemide 10 MG/ML 4ML Vial IV SCH (18:00)
[2024-01-13 19:52] VITALS: BP 183/73
[2024-01-14] VITALS (23 sets, daily range): BP systolic 130–181; BP diastolic 38–92
--- NOTE | 2024-01-14 06:50 | NUR ---
SHIFT SUMMARY: Pt is admitted for upper GI bleed and is a full code. Is alert and able to make needs known. ADLs have been IND. denies pain or discomfort when asked. Telly reports sinus in the 60s
[2024-01-14 08:17] LABS: BASOPHILS ABSOLUTE AUTO 0.05 K/mm3 (0.00-0.23); BASOPHILS PERCENT AUTO 1 % (0-2); Bun/Creatinine Ratio 23.1 (12.0-20.0); Calcium, Blood 8.3 mg/dL (8.5-10.1); Creatinine, Blood 1.21 mg/dL (0.40-1.00); EOSINOPHILS ABSOLUTE AUTO 0.22 K/mm3 (0.00-0.68); EOSINOPHILS PERCENT AUTO 3 % (0-6); Hematocrit 27.2 % (33.0-51.0); Hemoglobin 8.5 g/dL (11.5-16.0); IMMATURE GRAN ABSOLUTE AUTO 0.02 K/mm3 (0.00-0.10); IMMATURE GRAN PERCENT AUTO 0 % (0-1); LYMPHOCYTES ABSOLUTE AUTO 1.55 K/mm3 (0.84-5.20); LYMPHOCYTES PERCENT AUTO 22 % (21-46); MONOCYTES ABSOLUTE AUTO 0.86 K/mm3 (0.16-1.47); MONOCYTES PERCENT AUTO 12 % (4-13); Mean Corpuscular HGB 27.4 pg (26.0-34.0); Mean Corpuscular HGB Conc 31.3 g/dL (31.5-36.5); Mean Corpuscular Volume 88 fL (80-100); Mean Platelet Volume 11.8 fL (9.1-12.4); NEUTROPHILS ABSOLUTE AUTO 4.27 K/mm3 (1.96-9.15); NEUTROPHILS PERCENT AUTO 61 % (41-73); Platelet Count 179 K/mm3 (150-400); Potassium, Blood 5.2 mmol/L (3.5-5.5); RDW Coefficient Variation 18.1 % (11.7-14.2); RDW Standard Deviation 57.6 fL (35.1-46.3); White Blood Cell Count 6.97 K/mm3 (4.00-11.30)
[2024-01-14] MEDS ORDERED: Lactated Ringer's 1,000 ML IV ONE (08:54)
--- NOTE | 2024-01-14 09:11 | NUR ---
PT TO PACU FOR PREOP
[2024-01-14] MEDS ORDERED: MetroNIDAZOLE 500MG/NS 100 ml 100 ML IV SCH (09:15)
--- NOTE | 2024-01-14 09:16 | NUR ---
TRANSFER SUMMARY: PT LEFT AT 0905 TO PACU TO PREP FOR SURGERY. HAS BEEN NPO EXCEPT SOME MEDS THIS MORNING, AND BLOOD SUGARS HAVE BEEN WELL CONTROLED. TOLERATED FULL LIQUID DIET AND HAD A BM YESTERDAY. HAS BEEN VOIDING WELL, VIEW IO FOR MORE DETAILS. TRANSFERRED WELL. AOX4, LUNGS CLEAR BILATERALLY, AND HEART SOUNDS NORMAL BEFORE LEAVING.
--- NOTE | 2024-01-14 09:23 | NUR ---
DR RODRIGUEZ BEDSIDE TT PATIENT, CALLED DAUGHTER TO ANSWER Q'S
[2024-01-14] MEDS ORDERED: Ipratropium/Albuterol SulF 2.5-0.5MG/3 ML Amp ONE (09:27)
--- NOTE | 2024-01-14 09:28 | NUR ---
ANESTHESIA BEDSIDE TT PATIENT
[2024-01-14] MEDS ORDERED: Calcium Chloride 10% 10 ML SYR ONE (09:34)
[2024-01-14] MEDS ORDERED: Etomidate 2MG / ML 10ML Vial ONE (09:34)
[2024-01-14] MEDS ORDERED: Sodium Bicarb 8.4% 1 MEQ/ML 50 ML Vial ONE (09:34)
[2024-01-14] MEDS ORDERED: FentaNYL Citrate 50 MCG/ML 2 ML Injection ONE ×2 (09:37→14:26)
[2024-01-14] MEDS ORDERED: Lidocaine HCl 2% 20 ML MDV ONE (09:39)
[2024-01-14] MEDS ORDERED: Albumin (Human) 12.5gm/250ml 250 ML IV SCH (09:40)
[2024-01-14] MEDS ORDERED: Bupivacaine 0.5% HCl 5 MG/ML 30MLVIAL SC ONE (10:12)
[2024-01-14] MEDS ORDERED: Indocyanine Green 25 MG Vial IV ONE (10:20)
[2024-01-14] MEDS ORDERED: Magnesium Sulf 2 GM/Water 50ML 50 ML IV ONE (10:20)
[2024-01-14] MEDS ORDERED: Dexamethasone Sod Phos 10 MG/ML 1ML VIAL ONE (10:31)
[2024-01-14] MEDS ORDERED: Ondansetron HCl 2 MG / ML 2ML Vial ONE ×2 (10:31→14:25)
--- NOTE | 2024-01-14 10:31 | NUR ---
01/14/24 1031 Robbie Hunt ANCEF 2G IV AND FLAGYL 500MG IV GIVEN BY ERIC COOL AT 1000.
[2024-01-14] MEDS ORDERED: Sugammadex Sodium 200 MG/2ML SDV (100 MG/ML) ONE (13:17)
[2024-01-14] MEDS ORDERED: Rocuronium Bromide 10 MG/ML 5ML Injection IV ONE (13:17)
[2024-01-14] MEDS ORDERED: CeFAZolin Sodium 1000 mg Vial ONE (13:17)
[2024-01-14] MEDS ORDERED: Metoclopramide HCl 5MG / ML 2ML Vial ONE (14:43)
[2024-01-14] MEDS ORDERED: HYDROmorphone HCl/Pf 1MG SYR ONE (14:45)
[2024-01-14 15:15] LABS: Bun/Creatinine Ratio 24.8 (12.0-20.0); Calcium, Blood 8.5 mg/dL (8.5-10.1); Creatinine, Blood 1.21 mg/dL (0.40-1.00); Potassium, Blood 4.6 mmol/L (3.5-5.5)
[2024-01-14] MEDS ORDERED: HYDROcodone 5-APAP 325 TAB PO PRN (16:15)
[2024-01-14] MEDS ORDERED: HYDROmorphone HCl/Pf 1MG SYR IV PRN (16:20)
[2024-01-14] MEDS ORDERED: Morphine Sulfate 4 MG/1 ML Injection IV PRN (16:35)
[2024-01-14] MEDS ORDERED: HYDROmorphone HCl 2 MG Tab PO PRN (17:40)
--- NOTE | 2024-01-14 18:40 | NUR ---
PT ARRIVED TO THE UNIT AT 1600 FROM PACU. SHE ARRIVED ON 8L O2 WITH SPO2 OF 86% PT WAS AWAKE, SOBBING, ALERT, SHILA TO ANSWER WHEN NAME CALLED BUT WAS NOT ABLE TO ANSWER MEANINGFULLY. AFTER ARRIVAL SHE BEGINS TO CLEAR, RT WAS CALLED TO ROOM AND WITH ASSISTANCE OF RT AND REPOSITIONING SPO2 WAS MAINTAINED SUCCESSFULLY AT 94% ON 4L. SHE WAS ABLE TO WAKE AND TALK SHORTLY AFTER ARRIVAL WAS ABLE TO TAKE PO FLUIDS AND JELLO WITHOUT DIFFICULTY. HER PAIN WAS INITIALLY DIFFICULT TO TO CONTROL, BUT SHE IS NOW CURRENTLY RESTING WELL WITH EYES CLOSED. NO NASAL FLARRING NO RETRACTIONS NOTED, WVEN CHEST RSIE AND FALL NOTED. LAP SITES ARE APPROXIMATED WELL, NO BLEEDING NOTED, NO EDEMA, NO ERYTHEMA NOTED. ABD SOFT AND ROUND, TENDER, HYPOACTIVE BOWEL TONES.
[2024-01-15] VITALS (9 sets, daily range): BP systolic 101–153; BP diastolic 37–102
--- NOTE | 2024-01-15 04:40 | NUR ---
SHIFT SUMMARY POD1 FOR R HEMICOLECTOMY. DRESSINGS C/D/I. PT IS A SBA [place] [facility] [place] HAS VOIDED, DENIES PASSING JESSICA. VSS. 2LNC, CONT BIOX IN PLACE. SCDS IN PLACE. MEDICATED FOR PAIN PER EMAR. PT TOLERATING CL, HAS NOT ATTEMPTED TO ADVANCE DIET YET. USING CALL LIGHT APPROPRIATELY.
[2024-01-15 06:00] LABS: BASOPHILS ABSOLUTE AUTO 0.04 K/mm3 (0.00-0.23); BASOPHILS PERCENT AUTO 0 % (0-2); EOSINOPHILS ABSOLUTE AUTO 0.04 K/mm3 (0.00-0.68); EOSINOPHILS PERCENT AUTO 0 % (0-6); Hemoglobin 7.1 g/dL (11.5-16.0); IMMATURE GRAN ABSOLUTE AUTO 0.04 K/mm3 (0.00-0.10); IMMATURE GRAN PERCENT AUTO 0 % (0-1); LYMPHOCYTES ABSOLUTE AUTO 1.23 K/mm3 (0.84-5.20); LYMPHOCYTES PERCENT AUTO 13 % (21-46); MONOCYTES ABSOLUTE AUTO 0.99 K/mm3 (0.16-1.47); MONOCYTES PERCENT AUTO 10 % (4-13); Mean Corpuscular HGB 26.7 pg (26.0-34.0); Mean Corpuscular HGB Conc 29.6 g/dL (31.5-36.5); Mean Corpuscular Volume 90 fL (80-100); Mean Platelet Volume 11.9 fL (9.1-12.4); NEUTROPHILS ABSOLUTE AUTO 7.49 K/mm3 (1.96-9.15); NEUTROPHILS PERCENT AUTO 76 % (41-73); Platelet Count 169 K/mm3 (150-400); RDW Coefficient Variation 17.9 % (11.7-14.2); RDW Standard Deviation 59.1 fL (35.1-46.3); Red Blood Cell Count 2.66 M/mm3 (3.80-5.20); White Blood Cell Count 9.83 K/mm3 (4.00-11.30)
[2024-01-15 06:32] LABS: Bun/Creatinine Ratio 19.2 (12.0-20.0); Calcium, Blood 8.1 mg/dL (8.5-10.1); Creatinine, Blood 1.67 mg/dL (0.40-1.00); Potassium, Blood 5.2 mmol/L (3.5-5.5)
[2024-01-15] MEDS ORDERED: Sodium Zirconium Cyclosilicate 10 GM Packet PO SCH (09:00)
--- NOTE | 2024-01-15 14:22 | NUR ---
Pt. is awake in bed and welcomes my visit. Pt. is pleasant but seems initially cool to a spiritual care visit. After facilitating a life review the Pt. displays more evidence of trust. matter of ita are considered. Pastoral care and grief counseling center director is given as Pt. verbalizes of the passing of her . The Pt. then verbalized a desire to have us pray. Prayed with the pt. Pt. verbalized gratitude for the spiritual care visit and welcmoed this certified solid waste facility operator to return.
--- NOTE | 2024-01-15 17:31 | NUR ---
1 U PRBC FINISHED. VSS. NO REACTIONS NOTED. WILL MONITOR.
--- NOTE | 2024-01-15 18:32 | NUR ---
SHIFT SUMMARY NO ACUTE EVENTS NOTED TODAY. EATING/DRINKING/VOIDING WITHOUT ISSUES. PAIN MANAGED PER EMAR. ABD LAP SITES X4 C/D/I. DENIES N/V, REPORTS PASSING GAS AND BURPING THROUGHOUT THE DAY. 3L NC AT BASELINE. VSS. BED IN LOWEST POSITION, CALL LIGHT WITHIN REACH.
[2024-01-15 20:34] LABS: Hematocrit 24.9 % (33.0-51.0); Hemoglobin 7.5 g/dL (11.5-16.0)
[2024-01-16 02:35] VITALS: BP 123/49
--- NOTE | 2024-01-16 04:52 | NUR ---
SHIFT SUMMARY POD2 FOR ROBOTIC CARMEN COLECTOMY. LAP SITES C/D/I, ABD TENDER TO TOUCH. PT TOLERATING REG DIET W/O NAUSEA BUT HAS REPORTED SOME PAIN, MEDICATED W/ PO PAIN MEDS. VSS. 3LNC W/ O2 SATS > 92%, CONT BIOX ON. TELE ON, NO ACUTE CARDIAC EVENTS THIS SHIFT. PAS ON. SBA TO BSC TO VOID, PASSING FLATUS. PT RESTING IN ROOM, USING CALL LIGHT APPROPRIATELY.
[2024-01-16 05:37] LABS: BASOPHILS ABSOLUTE AUTO 0.05 K/mm3 (0.00-0.23); BASOPHILS PERCENT AUTO 1 % (0-2); EOSINOPHILS ABSOLUTE AUTO 0.26 K/mm3 (0.00-0.68); EOSINOPHILS PERCENT AUTO 3 % (0-6); Hemoglobin 7.7 g/dL (11.5-16.0); IMMATURE GRAN ABSOLUTE AUTO 0.03 K/mm3 (0.00-0.10); IMMATURE GRAN PERCENT AUTO 0 % (0-1); LYMPHOCYTES ABSOLUTE AUTO 1.97 K/mm3 (0.84-5.20); LYMPHOCYTES PERCENT AUTO 20 % (21-46); MONOCYTES ABSOLUTE AUTO 1.09 K/mm3 (0.16-1.47); MONOCYTES PERCENT AUTO 11 % (4-13); Mean Corpuscular HGB Conc 29.6 g/dL (31.5-36.5); Mean Corpuscular Volume 91 fL (80-100); Mean Platelet Volume 12.7 fL (9.1-12.4); NEUTROPHILS ABSOLUTE AUTO 6.46 K/mm3 (1.96-9.15); NEUTROPHILS PERCENT AUTO 66 % (41-73); Platelet Count 174 K/mm3 (150-400); RDW Coefficient Variation 18.4 % (11.7-14.2); RDW Standard Deviation 61.2 fL (35.1-46.3); Red Blood Cell Count 2.85 M/mm3 (3.80-5.20); White Blood Cell Count 9.86 K/mm3 (4.00-11.30)
[2024-01-16 06:04] LABS: Bun/Creatinine Ratio 18.4 (12.0-20.0); Calcium, Blood 7.8 mg/dL (8.5-10.1); Creatinine, Blood 2.45 mg/dL (0.40-1.00)
[2024-01-16 07:49] VITALS: BP 136/59
[2024-01-16] MEDS ORDERED: Polyethylene Glycol 3350 17 gm PO SCH (15:20)
[2024-01-16] MEDS ORDERED: Sennosides 8.6 MG Tab PO SCH (15:20)
[2024-01-16 15:36] VITALS: BP 156/55
--- NOTE | 2024-01-16 16:16 | NUR ---
Pt. is awake and welcomes my visit. Pt. is unsettled about the lack of progress in her recovery. Listen with empatha nad a calming presence. Pt. displays evidence of somnolence, so this statistical methods professor shortened the visit and agreed with the Pt. to return tomorrow.
[2024-01-16] MEDS ORDERED: Clopidogrel Bisulfate 75 MG Tab PO SCH (19:00)
--- NOTE | 2024-01-16 19:35 | NUR ---
SHIFT SUMMARY c ARM SWELLING POD2 CARMEN COLECTOMY, A/OX4, VSS, TOLERATING PO, AMBULATING WITH SBA TO BATHROOM, DENIES PAIN, MEDS ORDERED, ABD INCISIONS X4 C/D/I. PT REPORTED HAVING RED HOT SPOTS ON HER ARMS DISTAL TO BILATERAL AC/ELBOW, BOTH SIDES WERE RED, HOT, AND INFLAMMED WITH THE L SIDE BEING SLIGHTLY MORE SWOLLEN. PT DENIED PAIN BUT STATED IT WAS UNCOMFORTABLE. PT HAS HX OF DVT AND AFIB AND AFTER POLICY VALUE CALCULATOR HER MAR IT WAS NOTED SHE WAS NOT ON ANY DVT PROPHYLAXIS. CALLED MD TO DISCUSS RESTARTING HER HOME ANTICOAGULANTS. MD AND SURGERY DISCUSSED AND ORDERS WERE PLACED. DISCUSSED PLAN TO START ANTICOAGULANTS NOW/TONIGHT AND THAT MD WILL EVALUATE IN THE AM AND NOC RN WILL MONITOR AND REPORT ACORDINGLY. NO OTHER ACUTE EVENTS THIS SHIFT, CALL LIGHT IN REACH.
[2024-01-16 19:53] VITALS: BP 144/52
[2024-01-16] MEDS ORDERED: Enoxaparin 100 MG/ML 1ML SYR SC SCH (21:00)
[2024-01-17 04:39] LABS: BASOPHILS ABSOLUTE AUTO 0.03 K/mm3 (0.00-0.23); BASOPHILS PERCENT AUTO 0 % (0-2); EOSINOPHILS ABSOLUTE AUTO 0.43 K/mm3 (0.00-0.68); EOSINOPHILS PERCENT AUTO 5 % (0-6); Hemoglobin 8.4 g/dL (11.5-16.0); IMMATURE GRAN ABSOLUTE AUTO 0.03 K/mm3 (0.00-0.10); IMMATURE GRAN PERCENT AUTO 0 % (0-1); LYMPHOCYTES ABSOLUTE AUTO 1.42 K/mm3 (0.84-5.20); LYMPHOCYTES PERCENT AUTO 16 % (21-46); MONOCYTES ABSOLUTE AUTO 0.93 K/mm3 (0.16-1.47); MONOCYTES PERCENT AUTO 11 % (4-13); Mean Corpuscular HGB 27.1 pg (26.0-34.0); Mean Corpuscular Volume 90 fL (80-100); Mean Platelet Volume 12.5 fL (9.1-12.4); NEUTROPHILS ABSOLUTE AUTO 5.83 K/mm3 (1.96-9.15); NEUTROPHILS PERCENT AUTO 67 % (41-73); Platelet Count 178 K/mm3 (150-400); RDW Coefficient Variation 17.6 % (11.7-14.2); RDW Standard Deviation 57.6 fL (35.1-46.3); White Blood Cell Count 8.67 K/mm3 (4.00-11.30)
[2024-01-17 05:00] LABS: Albumin, Blood 2.1 g/dL (3.4-5.0); Albumin/Globulin Ratio 0.6 (0.8-1.8); Bilirubin, Total 0.2 mg/dL (0.1-1.0); Bun/Creatinine Ratio 26.7 (12.0-20.0); Calcium, Blood 8.3 mg/dL (8.5-10.1); Creatinine, Blood 1.72 mg/dL (0.40-1.00); Globulin, Blood 3.6 g/dL (2.2-4.0); Potassium, Blood 5.1 mmol/L (3.5-5.5); Total Protein, Blood 5.7 g/dL (6.4-8.2)
--- NOTE | 2024-01-17 05:39 | NUR ---
SHIFT SUMMARY NOC. PT S/P HEMICOLECTOMY. PT REPORTS MILD ABD TENDERNESS BUT DENIES PAIN/NAUSEA. LAP SITES X4 C/D/I ASIDE FROM NOTED BRUISING. PT'S BILATERAL FOREARMS MARKED WITH MARGINS AT BEGINNING OF SHIFT. REDNESS RECEDING AND WITHIN MARGINS AT THIS TIME, DVT PROPHYLAXIS RESTARTED PER EMAR ORDERS. PT VOIDING URINE, POST VOID BLADDER SCAN PERFORMED PER DR. SUNG AND FOUND TO BE 52ML AT HIGHEST VALUE. PT ON N/C AND BIOX IN PLACE. BED IN LOWEST POSITION AND CALL LIGHT IN REACH.
[2024-01-17 06:04] VITALS: BP 163/62
[2024-01-17 08:00] VITALS: BP 152/109
[2024-01-17] MEDS ORDERED: Bisacodyl 10 MG Supp PR ONE (11:05)
[2024-01-17] MEDS ORDERED: Magnesium Hydroxide Conc 10 ML UDC PO PRN (11:45)
[2024-01-17] MEDS ORDERED: OxyCODONE HCL 5 MG TAB PO PRN (11:45)
[2024-01-17 13:31] VITALS: BP 149/74
[2024-01-17] MEDS ORDERED: Furosemide 10 MG/ML 4ML Vial IV ONE (14:25)
[2024-01-17 15:42] VITALS: BP 145/69
[2024-01-17] MEDS ORDERED: Bumetanide 0.25 MG/ML 4ML ViaL IV SCH ×2 (16:30→21:00)
--- NOTE | 2024-01-17 18:31 | NUR ---
SUMMARY: PT IS POD 3 R HEMICOLECTOMY. A/O, VSS. SURGICAL SITES WNL, PREVIOUS BRUISING PRESENT. PT SBA IN ROOM, ABLE TO TAKE A SHOWER TODAY. ATTEMPTING TO WEAN O2. PT DESATS TO 87% WHILE SLEEPING. SP02 STABLE ON RA WHILE AWAKE, CONT BIOX IN PLACE. REDNESS TO BILAT ARMS APPEARS TO BE RECEEDING, NO REPORT OF N/T TO ARMS. PT GIVEN BOWEL CARE TODAY, NO BM YET. PT HAS DENIED PAIN AT INCISIONS.24 HR URINE COLECTION WILL START AFTER PT VOIDS, WILL MAKE NOC RN AWARE. ORANGE LAB CONTAINERS ARE IN BATHROOM ON ICE. PT AWARE OF 1000ML FLUID RESTRICTION. NO ACUTE CONCERNS, PT USES CALL LIGHT
[2024-01-17 19:18] VITALS: BP 168/56
[2024-01-17 21:56] VITALS: BP 151/63
[2024-01-18 04:04] VITALS: BP 145/58
[2024-01-18 05:16] LABS: Hematocrit 27.3 % (33.0-51.0); Hemoglobin 8.4 g/dL (11.5-16.0)
[2024-01-18 05:39] LABS: Magnesium, Blood 1.9 mg/dL (1.6-2.4)
[2024-01-18 05:40] LABS: Anion Gap 7 mmol/L (3-11); Blood Urea Nitrogen 46 mg/dL (8-24); Bun/Creatinine Ratio 28.8 (12.0-20.0); CO2, Blood 27 mmol/L (21-32); Calcium, Blood 8.4 mg/dL (8.5-10.1); Chloride, Blood 109 mmol/L (98-108); Glomerular Filtration Rate 36 (60-); Glucose, Blood 107 mg/dL (70-99); Potassium, Blood 5.1 mmol/L (3.5-5.5); Sodium, Blood 138 mmol/L (136-145)
--- NOTE | 2024-01-18 06:06 | NUR ---
NEW ORDERS. VERBAL ORDERS RECEIVED FROM DR. CREWS. BUMEX 2MG IV CHANGED FROM BID TO TID. UPDATED ORDERS IN EMAR.
[2024-01-18] MEDS ORDERED: Bumetanide 0.25 MG/ML 4ML ViaL IV SCH ×2 (07:00→09:00)
[2024-01-18 07:21] VITALS: BP 151/53
--- NOTE | 2024-01-18 08:06 | NUR ---
SHIFT SUMMARY NOC. PT A/O X4, PT LAP SITES C/D/I. PT VOIDING URINE AND SAVED FOR 24 HOUR URINE TEST. PT ON FLUID RESTRICTIONS 1000ML. PT MEDICATED FOR PAIN X1 WITH REPORTED RELIEF. BED IN LOWEST POSITION, CALL LIGHT IN REACH.
[2024-01-18] MEDS ORDERED: Metolazone 5 MG Tab PO SCH (09:00)
[2024-01-18] MEDS ORDERED: Magnesium Citrate 300 ML BTL PO ONE (10:55)
--- NOTE | 2024-01-18 13:30 | NUR ---
Pt. is sitting up on the side of her bed when she welcomes my visit. Pt. verbalizes an expectation the she will be discharged tomorrow, but is clearly unsettled by it. Through pastoral care and theraputic listening Pt. verbalizes concerns about water retention she continues to experience. Pt. verbalizes that she doesn't have care support at home, and that her daughter is getting in February. Listen more with empathy and a calming presence. Pt. displays evidence of trust in this irrigation technician. Attempt to normalize the Pt. experience. Pt. verbalizes that she will pursue further care elsewhere if she can't find support here. Prayed with the Pt. Pt. verbalized gratitude for the spiritual care visits.
[2024-01-18 15:25] VITALS: BP 153/69
[2024-01-18] MEDS ORDERED: Darbepoetin Alfa In Albumn Sol 40 MCG/0.4 ML SC SCH (16:00)
--- NOTE | 2024-01-18 17:13 | NUR ---
SHIFT SUMMARY POD 4 R CARMEN CHOLECTOMY. LAP SITES X4 C/D/I. PT ON ROOM AIR THROUGHTOUT THE DAY. CONT BIOX ON. EATING/DRINKING/VOIDING WITHOUT DIFFICULTY. PT HAS NOT HAD A BM TODAY, BUT STATES THAT SHE HAD A SMALL ONE LAST NIGHT. NO ACUTE EVENTS NOTED. CALL LIGHT WITHIN REACH, BED IN LOWEST POSITION.
[2024-01-18 19:18] VITALS: BP 175/63
[2024-01-18 19:57] LABS: Protein, Urine Quantitative 244.8 mg/dL (0.0-11.9)
[2024-01-18] MEDS ORDERED: HydrALAZINE HCl 20 MG / ML 1ML Vial IV PRN (23:45)
[2024-01-18] MEDS ORDERED: Insulin Glargine-Yfgn 100 Unit/mL 3 ML SYR SC ONE ×2 (23:55)
[2024-01-19 00:33] VITALS: BP 163/53
--- NOTE | 2024-01-19 00:45 | NUR ---
CALL FROM DR. SUNG. CALL RECEIVED FROM REGARDING PT'S CHEM BG. NEW ORDERS RECIEVED FOR LONG ACTING TO CHANGE TO 10 UNITS AND SLIDING SCALE INCREASED. THIS RN INSTRUCTED TO GIVE ADDITIONAL 5 UNITS OF LONG ACTING NOW, PLEASE SEE EMAR FOR DOCUMENTATION. NEW ORDERS ALSO RECEIVED FOR PRN MED FOR HYPERTENSION OVER SBP OVER 160. MEDICATION GIVEN PER EMAR BP OVER 160 SYSTOLIC UPON RECHECK. PT EDUCATED ON CHANGES IN MEDICATION AND IS AGREEABLE WITH PLAN.
[2024-01-19 02:23] VITALS: BP 140/49
[2024-01-19 05:30] LABS: BASOPHILS ABSOLUTE AUTO 0.03 K/mm3 (0.00-0.23); BASOPHILS PERCENT AUTO 0 % (0-2); EOSINOPHILS ABSOLUTE AUTO 0.38 K/mm3 (0.00-0.68); EOSINOPHILS PERCENT AUTO 4 % (0-6); Hematocrit 28.6 % (33.0-51.0); Hemoglobin 8.7 g/dL (11.5-16.0); IMMATURE GRAN ABSOLUTE AUTO 0.03 K/mm3 (0.00-0.10); IMMATURE GRAN PERCENT AUTO 0 % (0-1); LYMPHOCYTES ABSOLUTE AUTO 1.49 K/mm3 (0.84-5.20); LYMPHOCYTES PERCENT AUTO 17 % (21-46); MONOCYTES ABSOLUTE AUTO 1.07 K/mm3 (0.16-1.47); MONOCYTES PERCENT AUTO 12 % (4-13); Mean Corpuscular HGB 27.2 pg (26.0-34.0); Mean Corpuscular HGB Conc 30.4 g/dL (31.5-36.5); Mean Corpuscular Volume 89 fL (80-100); NEUTROPHILS PERCENT AUTO 65 % (41-73); Platelet Count 224 K/mm3 (150-400); RDW Coefficient Variation 16.9 % (11.7-14.2); RDW Standard Deviation 54.5 fL (35.1-46.3)
[2024-01-19 06:00] LABS: Albumin, Blood 1.8 g/dL (3.4-5.0); Albumin/Globulin Ratio 0.5 (0.8-1.8); Bilirubin, Total 0.5 mg/dL (0.1-1.0); Bun/Creatinine Ratio 28.3 (12.0-20.0); Calcium, Blood 8.3 mg/dL (8.5-10.1); Creatinine, Blood 1.73 mg/dL (0.40-1.00); Globulin, Blood 3.7 g/dL (2.2-4.0); Magnesium, Blood 2.3 mg/dL (1.6-2.4); Phosphorus, Blood 3.9 mg/dL (2.5-4.9); Potassium, Blood 5.3 mmol/L (3.5-5.5); Total Protein, Blood 5.5 g/dL (6.4-8.2)
--- NOTE | 2024-01-19 06:18 | NUR ---
SHIFT SUMMARY NOC. PT S/P RIGHT HEMICOLECTOMY. PT A/O X4, LAP SITES X4 C/D/I, BRUISING NOTED. PT VOIDING LARGE AMOUNTS OF URINE, 24 HOUR URINE COMPLETED. PT WITHIN FLUID RESTRICTIONS OF 1000ML/24 HRS. PT MEDICATED WITH ORAL OXY X1 WITH REPORTED RELIEF. PT MEDICATED FOR HTN X1 WITH IMPROVED BP. NEW ORDERS RECEIVED FOR INSULIN, PLEASE SEE PREVIOUS NOTE. BED IN LOWEST POSITION, CALL LIGHT IN REACH.
[2024-01-19] MEDS ORDERED: Insulin Human Lispro 100 Units/ML 3ML Syringe SC SCH (07:30)
[2024-01-19 07:37] VITALS: BP 139/55
[2024-01-19 08:28] VITALS: BP 153/35
[2024-01-19] MEDS ORDERED: MIRALAX17 GM PO (12:03)
[2024-01-19] MEDS ORDERED: OXAYDO5 M1 PO (12:03)
[2024-01-19] MEDS ORDERED: BUME2 PO (12:04)
[2024-01-19] MEDS ORDERED: LOKELMA10 GM PO (12:04)
[2024-01-19] MEDS ORDERED: SENN187 PO (12:04)
[2024-01-19] MEDS ORDERED: HYDRA50 PO (12:05)
[2024-01-19 13:09] VITALS: BP 133/62
--- NOTE | 2024-01-19 13:37 | NUR ---
PATIENT DISCHARGED HOME AT 1330. DISCHARGE INFORMATION GONE OVER WITH BOTH THE PATIENT AND HER DAUGHTER. MEDS FAXED TO [facility]
[2024-01-19] MEDS ORDERED: Sodium Zirconium Cyclosilicate 10 GM Packet PO SCH ×2 (14:00)
[2024-01-19] MEDS ORDERED: Insulin Glargine-Yfgn 100 Unit/mL 3 ML SYR SC SCH (21:00)
== END 2024-01-19 13:30 | disposition home or self-care (01) | DRG 326 ==
LOC: ER 12:28 → MEDS 19:25 → PCU 19:25 → SURS 19:25 → ERHOLD 19:25 → PCU 01-10 12:58 → MEDS 01-11 18:27 → SURS 01-14 15:34
PROVIDERS: Hospitalist; Internal Medicine; Internal Medicine Nephrology; Nurse Anesthetist, Certified Registered; Nurse Practitioner Acute Care; Physician Assistant; Student in an Organized Health Care Education/Training Program; Surgery; ADMIT Student in an Organized Health Care Education/Training Program
PROC: 30233N1 Transfusion of Nonautologous Red Blood Cells into Peripheral Vein, Percutaneous Approach (ICD-10-PCS; 2024-01-10)
PROC: 0DBL8ZZ Excision of Transverse Colon, Via Natural or Artificial Opening Endoscopic (ICD-10-PCS; 2024-01-11)
PROC: 0D968ZZ Drainage of Stomach, Via Natural or Artificial Opening Endoscopic (ICD-10-PCS; principal; 2024-01-11 12:30)
PROC: 8E0W4CZ Robotic Assisted Procedure of Trunk Region, Percutaneous Endoscopic Approach (ICD-10-PCS; 2024-01-14)
PROC: 0DTF4ZZ Resection of Right Large Intestine, Percutaneous Endoscopic Approach (ICD-10-PCS; 2024-01-14)
PROC: 0WQF4ZZ Repair Abdominal Wall, Percutaneous Endoscopic Approach (ICD-10-PCS; 2024-01-14 10:00)
DX: K63.5 Polyp of colon (principal); I50.33 Acute on chronic diastolic (congestive) heart failure; K92.1 Melena; D62 Acute posthemorrhagic anemia; K43.0 Incisional hernia with obstruction, without gangrene; N17.9 Acute kidney failure, unspecified; J96.11 Chronic respiratory failure with hypoxia; I13.0 Hypertensive heart and chronic kidney disease with heart failure and stage 1 through stage 4 chronic kidney disease, or unspecified chronic kidney disease; N25.81 Secondary hyperparathyroidism of renal origin; I48.0 Paroxysmal atrial fibrillation; N18.30 Chronic kidney disease, stage 3 unspecified; E11.22 Type 2 diabetes mellitus with diabetic chronic kidney disease; E11.42 Type 2 diabetes mellitus with diabetic polyneuropathy; Z86.718 Personal history of other venous thrombosis and embolism; E87.5 Hyperkalemia; E78.5 Hyperlipidemia, unspecified; F17.200 Nicotine dependence, unspecified, uncomplicated; E66.9 Obesity, unspecified; G47.33 Obstructive sleep apnea (adult) (pediatric); Z28.21 Immunization not carried out because of patient refusal; Z79.01 Long term (current) use of anticoagulants; Z79.02 Long term (current) use of antithrombotics/antiplatelets; Z71.6 Tobacco abuse counseling; Z88.0 Allergy status to penicillin; Z88.5 Allergy status to narcotic agent; Z88.6 Allergy status to analgesic agent; Z88.8 Allergy status to other drugs, medicaments and biological substances; Z79.4 Long term (current) use of insulin; Z79.899 Other long term (current) drug therapy
CPT/HCPCS: 36415; 36430; 74022; 74174; 76770; 80048; 80053; 80069; 81001; 82947; 83735; 83880; 84100; 84132; 84156; 85014; 85018; 85025; 85610; 85730; 86850; 86900; 86901; 86923; 88305; 88307; 93005; 93010; 93306; 94640; 94664; 94761; 94762; 96361; 96374-59; 96375-59; 99285-25; A9270; J0360; J0612; J0690; J0881; J1100; J1170; J1650; J1815; J1940; J2001; J2270; J2371; J2405; J2470; J2704; J2765; J3010; J7030; J7040; J7042; J7060; J7070; J7120; J7799; P9016; Q9967

== ENCOUNTER → 2024-01-29 | Outpatient (CLI) | payer MEDICARE ==
[~2024-01-29] MED LIST changes: +HYDRA50 PO; +LOKELMA10 GM PO; +MAGNESIUM OXID500 MG PO; +NITR.4SL SL; +OXAYDO5 M1 PO; +SENN187 PO; +SOAANZ20 M3 PO
[2024-01-30 12:59] LABS: Stool Occult Bld Immuno 1 Positive (NEGATIVE)
== END ==
LOC: LAB SHORT 11:30 → LAB 11:30
PROVIDERS: Family Medicine
DX: K92.1 Melena (principal)
CPT/HCPCS: 82274

== ENCOUNTER 2024-03-23 15:59 | Inpatient (IN) | payer MEDICARE ==
[~2024-03-23] VITALS: Ht 154.9 cm; Wt 99.0 kg
[2024-03-23 17:08] LABS: BASOPHILS ABSOLUTE AUTO 0.07 K/mm3 (0.00-0.23); BASOPHILS PERCENT AUTO 1 % (0-2); EOSINOPHILS ABSOLUTE AUTO 0.11 K/mm3 (0.00-0.68); EOSINOPHILS PERCENT AUTO 1 % (0-6); Hematocrit 29.5 % (33.0-51.0); Hemoglobin 8.6 g/dL (11.5-16.0); IMMATURE GRAN ABSOLUTE AUTO 0.04 K/mm3 (0.00-0.10); IMMATURE GRAN PERCENT AUTO 1 % (0-1); LYMPHOCYTES ABSOLUTE AUTO 1.74 K/mm3 (0.84-5.20); LYMPHOCYTES PERCENT AUTO 21 % (21-46); MONOCYTES ABSOLUTE AUTO 0.76 K/mm3 (0.16-1.47); MONOCYTES PERCENT AUTO 9 % (4-13); Mean Corpuscular HGB 24.6 pg (26.0-34.0); Mean Corpuscular HGB Conc 29.2 g/dL (31.5-36.5); Mean Corpuscular Volume 85 fL (80-100); Mean Platelet Volume 11.1 fL (9.1-12.4); NEUTROPHILS ABSOLUTE AUTO 5.48 K/mm3 (1.96-9.15); NEUTROPHILS PERCENT AUTO 67 % (41-73); Platelet Count 263 K/mm3 (150-400); RDW Coefficient Variation 16.5 % (11.7-14.2); RDW Standard Deviation 50.5 fL (35.1-46.3); Red Blood Cell Count 3.49 M/mm3 (3.80-5.20)
[2024-03-23 17:19] LABS: Albumin, Blood 1.9 g/dL (3.4-5.0); Albumin/Globulin Ratio 0.4 (0.8-1.8); Bilirubin, Total 0.2 mg/dL (0.1-1.0); Bun/Creatinine Ratio 32.4 (12.0-20.0); Calcium, Blood 8.8 mg/dL (8.5-10.1); Creatinine, Blood 1.45 mg/dL (0.40-1.00); Globulin, Blood 4.6 g/dL (2.2-4.0); Potassium, Blood 5.3 mmol/L (3.5-5.5); Total Protein, Blood 6.5 g/dL (6.4-8.2)
[2024-03-23] MEDS ORDERED: Sennosides 8.6 MG Tab PO PRN (20:10)
[2024-03-23] MEDS ORDERED: Nitroglycerin 0.4 MG SUBL SL PRN (20:10)
[2024-03-23] MEDS ORDERED: OxyCODONE HCL 5 MG TAB PO PRN (20:15)
[2024-03-23] MEDS ORDERED: Magnesium Hydroxide Conc 10 ML UDC PO PRN (20:20)
[2024-03-23] MEDS ORDERED: FLU VACC TS2024-25(6MOS UP)/PF 45 MCG/0.5 ML SYRINGE IM SCH (20:20)
[2024-03-23] MEDS ORDERED: TraZODone HCl 50 MG Tab PO PRN (20:20)
[2024-03-23] MEDS ORDERED: Albuterol HFA200 ACT/6.7 GM INH INH PRN (20:30)
[2024-03-23] MEDS ORDERED: HydrALAZINE HCl 50 MG Tab PO SCH (21:00)
[2024-03-23] MEDS ORDERED: Furosemide 10 MG/ML 4ML Vial IV SCH (21:00)
[2024-03-23] MEDS ORDERED: Isosorbide Mononitrate 20 MG TAB PO SCH (21:00)
[2024-03-23] MEDS ORDERED: Insulin Regular 100 UNIT/ML 10ML Vial SC SCH (21:00)
[2024-03-23] MEDS ORDERED: Gabapentin 300 MG Cap PO SCH ×2 (21:00)
[2024-03-23 21:50] VITALS: BP 185/60
[2024-03-23 22:41] VITALS: BP 202/72
[2024-03-23 23:00] VITALS: BP 179/58
[2024-03-23 23:47] VITALS: BP 129/51
[2024-03-24] VITALS (10 sets, daily range): BP systolic 112–149; BP diastolic 45–64
[2024-03-24 02:22] LABS: Magnesium, Blood 2.2 mg/dL (1.6-2.4)
[2024-03-24 02:27] LABS: Albumin, Blood 1.6 g/dL (3.4-5.0); Albumin/Globulin Ratio 0.4 (0.8-1.8); Bilirubin, Total 0.1 mg/dL (0.1-1.0); Bun/Creatinine Ratio 32.4 (12.0-20.0); Calcium, Blood 8.5 mg/dL (8.5-10.1); Creatinine, Blood 1.45 mg/dL (0.40-1.00); Potassium, Blood 4.6 mmol/L (3.5-5.5); Total Protein, Blood 5.6 g/dL (6.4-8.2)
--- NOTE | 2024-03-24 06:56 | NUR ---
RECEIVED PT FROM ED BY STRETCHER. PT ABLE TO TRANSFER FROM STRETCHER TO BED WITH 1 ASSIST. WHEN PT ARRIVED FROM ED BLOOD PRESSURE WAS STILL VERY ELEVATED, SEE CHART. PT WAS MEDICATED WITH HYDRALAZINE, LASIX, AND EXTENDED RELEASE NITROGLYCERIN. BLOOD PRESSURE BETTER CONTROLLED AFTER MEDS. PT AOX4, USES CALL LIGHT APPROPRIATELY. PT SBA TO BSC WITH GOOD URINARY OUTPUT. PT RECEIVED SNACK TO MANAGE PREVENT LOW CBG AND HAD NO PROBLEMS EATING OR DRINKING. PT IS DYSPNEIC WITH EXERTION BUT RECOVERS WELL ON 2-3L O2.
[2024-03-24] MEDS ORDERED: Insulin Glargine-Yfgn 100 Unit/mL 3 ML SYR SC SCH (09:00)
[2024-03-24] MEDS ORDERED: Atorvastatin 40 MG Tab PO SCH (09:00)
[2024-03-24] MEDS ORDERED: Rivaroxaban 10 MG Tab PO SCH (09:00)
[2024-03-24] MEDS ORDERED: Polyethylene Glycol 3350 17 gm PO SCH (09:00)
[2024-03-24] MEDS ORDERED: Clopidogrel Bisulfate 75 MG Tab PO SCH (09:00)
[2024-03-24] MEDS ORDERED: Metoprolol Succinate 50 MG TABCR PO SCH (09:00)
[2024-03-24] MEDS ORDERED: Insulin Regular 100 UNIT/ML 10ML Vial SC SCH (11:30)
--- NOTE | 2024-03-24 16:21 | NUR ---
SUPPORTIVE PALLIATIVE CARE VISIT EUSEBIO IS A/O X4. PT REPORTS 10 POUND WEIGHT GAIN OVER FOUR DAYS. SHE ENDORSES WEIGHING DAILY AND BEING AWARE OF CALL PROVIDER IF GREATER THAN A THREE POUND FLUCTUATION IN A DAY. "I KNOW. MY DAUGHTER GOT MAD AT ME BECAUSE I DIDN'T TELL HER SOONER." PT CALLED HER DTR, WHOM ASSISTS PT WITH HER MEDICATIONS, WHEN PT'S RIGHT LEG BECAME SWOLLEN AND PAINFUL. SHE ALSO FELT FULL, BLOATED AND DYSPNIC. "I FEEL 9 MONTHS OR MORE." DENIES ANY RECENT CHANGES IN MEDICATIONS. "THOSE WATER PILLS SEEM TO STOP WORKING AFTER A FEW DAYS." DENIES STOPPING OR MISSING DOSES OF DIURETICS. REVIEWED DIET. 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 IT'S THE ONLY WAY TO GET GOOD FOOD." REPORTS, "I DON'T SALT ANYTHING. SALT IS ON THE TABLE WHEN WE HAVE FAMILY DINNERS. THEY CAN SALT THEIR OWN FOOD. I HAVE TO KEEP IT HEALTHY. ONLY SEA SALT ON THE TABLE." PT DENIES USING ANY SODIUM ALTERNATIVES OR PREPREPARED FOODS. SHE USES 3L OXYGEN VIA NC WHEN SLEEPING. SHE SLEEPS IN BED WITH HER HEAD ELEVATED APX 30 DEGREES. "I HAVE A FANCY BED. THE HEAD ELEVATES AND THE FEET ADJUST. MY DAUGHTER BOUGHT IT FOR ME." REVIEWED CODE STATUS. CONFIRMED DNR/DNI, WITH PT AND POLST ON FILE. PLAN: CONTINUE CHF MANAGEMENT EDUCATION. PC TO REMAIN AVAILABLE NEEDED.
--- NOTE | 2024-03-24 18:06 | NUR ---
PATIENT IS A&O APPROPRIATE AND PLEASANT, VITALS WERE ALL STABLE, INSULIN WAS HELD DUE TO FSBS BEING BELOW PARIMETERS, LASIX GIVEN, PATIENT HAS LOW ACTIVITY TOLERANCE BUT WAS ABLE TO PIVOT TO BSC. WILL CONTINUE TO MONITOR AND REPOT TO ONCOMING RN
[2024-03-25 00:47] VITALS: BP 114/44
[2024-03-25 03:40] VITALS: BP 148/50
[2024-03-25 04:26] LABS: BASOPHILS ABSOLUTE AUTO 0.04 K/mm3 (0.00-0.23); BASOPHILS PERCENT AUTO 1 % (0-2); EOSINOPHILS ABSOLUTE AUTO 0.15 K/mm3 (0.00-0.68); EOSINOPHILS PERCENT AUTO 2 % (0-6); Hematocrit 24.5 % (33.0-51.0); Hemoglobin 7.2 g/dL (11.5-16.0); IMMATURE GRAN ABSOLUTE AUTO 0.03 K/mm3 (0.00-0.10); IMMATURE GRAN PERCENT AUTO 1 % (0-1); LYMPHOCYTES ABSOLUTE AUTO 2.11 K/mm3 (0.84-5.20); LYMPHOCYTES PERCENT AUTO 32 % (21-46); MONOCYTES ABSOLUTE AUTO 0.77 K/mm3 (0.16-1.47); MONOCYTES PERCENT AUTO 12 % (4-13); Mean Corpuscular HGB 24.8 pg (26.0-34.0); Mean Corpuscular HGB Conc 29.4 g/dL (31.5-36.5); Mean Corpuscular Volume 85 fL (80-100); Mean Platelet Volume 11.6 fL (9.1-12.4); NEUTROPHILS ABSOLUTE AUTO 3.55 K/mm3 (1.96-9.15); NEUTROPHILS PERCENT AUTO 53 % (41-73); Platelet Count 232 K/mm3 (150-400); RDW Coefficient Variation 16.4 % (11.7-14.2); RDW Standard Deviation 50.7 fL (35.1-46.3); White Blood Cell Count 6.65 K/mm3 (4.00-11.30)
[2024-03-25 04:49] LABS: Bun/Creatinine Ratio 29.2 (12.0-20.0); Calcium, Blood 8.6 mg/dL (8.5-10.1); Creatinine, Blood 1.85 mg/dL (0.40-1.00); Potassium, Blood 4.7 mmol/L (3.5-5.5)
--- NOTE | 2024-03-25 06:41 | NUR ---
PT STABLE THROUGHOUT THE SHIFT. PT REMAINS ON 3L O2. PT AOX4, COOPERATIVE, ABLE TO USE CALL LIGHT APPROPRIATELY. PT IS SBA TO BS AND HAS GOOD URINE OUTPUT. VITAL SIGNS WNL. PT RHYTHM SINUS RHYTHM AND HAS INCREASED INCIDENTS OF PACS, NO S/S WITH THIS. PT DOES HAVE HX OF AFIB, NO EPISODES OF AFIB THIS SHIFT.
[2024-03-25 08:30] VITALS: BP 143/54
[2024-03-25 12:49] VITALS: BP 133/48
[2024-03-25 16:29] VITALS: BP 139/64
--- NOTE | 2024-03-25 16:58 | NUR ---
SHIFT SUMMARY: PT HAS BEEN A&Ox4, COOPERATIVE W/CARE, ABLE TO MAKE NEEDS KNOWN. O2 FLOW TITRATED DOWN TO 1.5 L/MIN VIA NC, O2 SATS >93%. SR ON MONITOR, RATE IN 60s, PT DENIES CHEST PAIN/PRESSURE. IV DIURETIC ADMINISITERED PER EMAR, PT AMBULATING TO BATHROOM USING FWW, TOLERATING WELL W/GOOD URINE OUTPUT. AT THIS TIME, PT IS RESTING QUIETLY IN BED W/CALL LIGHT IN REACH.
[2024-03-25 20:15] VITALS: BP 142/54
[2024-03-26] VITALS (7 sets, daily range): BP systolic 121–164; BP diastolic 41–96
[2024-03-26 04:11] LABS: BASOPHILS ABSOLUTE AUTO 0.04 K/mm3 (0.00-0.23); BASOPHILS PERCENT AUTO 1 % (0-2); EOSINOPHILS ABSOLUTE AUTO 0.12 K/mm3 (0.00-0.68); EOSINOPHILS PERCENT AUTO 2 % (0-6); Hematocrit 23.7 % (33.0-51.0); Hemoglobin 6.9 g/dL (11.5-16.0); IMMATURE GRAN ABSOLUTE AUTO 0.02 K/mm3 (0.00-0.10); IMMATURE GRAN PERCENT AUTO 0 % (0-1); LYMPHOCYTES PERCENT AUTO 24 % (21-46); MONOCYTES ABSOLUTE AUTO 0.82 K/mm3 (0.16-1.47); MONOCYTES PERCENT AUTO 12 % (4-13); Mean Corpuscular HGB 24.5 pg (26.0-34.0); Mean Corpuscular HGB Conc 29.1 g/dL (31.5-36.5); Mean Corpuscular Volume 84 fL (80-100); Mean Platelet Volume 11.4 fL (9.1-12.4); NEUTROPHILS PERCENT AUTO 61 % (41-73); Platelet Count 216 K/mm3 (150-400); RDW Coefficient Variation 16.3 % (11.7-14.2); RDW Standard Deviation 50.1 fL (35.1-46.3); Red Blood Cell Count 2.82 M/mm3 (3.80-5.20)
[2024-03-26 04:34] LABS: Percent Saturation 5.2 % (15.0-50.0)
--- NOTE | 2024-03-26 04:39 | NUR ---
CALL PLACED TO DR. CSHUMACHER REGARDING PT HBG DECREASING. NEW ORDERS PLACED BY PHYSICIAN. PT TO RECEIVE 1 UNIT PRBC, PT IS AGREEABLE AND STATES NO PREVIOUS TRANSFUSION REACTION.
[2024-03-26 04:55] LABS: Bun/Creatinine Ratio 31.6 (12.0-20.0); Calcium, Blood 8.4 mg/dL (8.5-10.1); Creatinine, Blood 1.93 mg/dL (0.40-1.00); Potassium, Blood 4.7 mmol/L (3.5-5.5)
[2024-03-26] MEDS ORDERED: NS 500 ML IV SCH (06:05)
--- NOTE | 2024-03-26 07:17 | NUR ---
PT STABLE THROUGHOUT THE SHIFT. DYSPNEA AND ACTIVITY TOLERANCE IMPROVED. PT WAS ABLE TO SHOWER SELF WITHOUT SOB. PT HAS REMAINED ON 2-3L THROUGHOUT THE SHIFT WITH INCREASED DEMAND WHILE SLEEPING. LEFT SHOULDER ABRASION COVERED WITH FOAM DRESSING AND BLEEDING HAS BEEN CONTROLLED. PT CONTINUES TO DIURESE WELL. HGB CAME BACK BELOW 7 AND PT IS RECEIVING 1 UNIT PRBC. PT DID HAVE CONSENT PERFORMED BY DR. LINDSEY TO RECEIVE BLOOD. PT REMAINS AOX4, CALM, COOPERATIVE AND PLEASANT.
[2024-03-26] MEDS ORDERED: Sod Ferric Gluc Complx/Sucrose 125 MG in NS 100 ML IV SCH (09:07)
[2024-03-26] MEDS ORDERED: Furosemide 10 MG/ML 4ML Vial IV SCH (09:47)
--- NOTE | 2024-03-26 17:33 | NUR ---
SHIFT SUMMARY: PT HAS BEEN A&Ox4, USING CALL LIGHT APPROPRIATELY TO MAKE NEEDS KNOWN, IS COOPERATIVE W/CARE. PT CONTINUES INDEPENDENT W/FWW TO/FROM RESTROOM. PT STATES OCCASIONAL DYSPNEA AFTER AMBULATION BUT CLAIMS IT IS MUCH IMPROVED. O2 SATS MAINTAINED >92% ON 1-3 L/MIN VIA NC. PT DENIES CP, SB/SR ON MONITOR W/RATE 50s-60s. IV DIURETIC DOSE DECREASED THIS AM. 1 UNIT PRBC COMPLETED W/OUT INCIDENT, PT REPORTS IMPROVED OVERALL FEELING. PT IS RESTING IN BED, CALL LIGHT IN REACH.
[2024-03-27 00:13] VITALS: BP 146/58
[2024-03-27 04:07] LABS: BASOPHILS ABSOLUTE AUTO 0.04 K/mm3 (0.00-0.23); BASOPHILS PERCENT AUTO 1 % (0-2); EOSINOPHILS ABSOLUTE AUTO 0.16 K/mm3 (0.00-0.68); EOSINOPHILS PERCENT AUTO 2 % (0-6); Hematocrit 27.7 % (33.0-51.0); Hemoglobin 8.2 g/dL (11.5-16.0); IMMATURE GRAN ABSOLUTE AUTO 0.03 K/mm3 (0.00-0.10); IMMATURE GRAN PERCENT AUTO 0 % (0-1); LYMPHOCYTES ABSOLUTE AUTO 1.99 K/mm3 (0.84-5.20); LYMPHOCYTES PERCENT AUTO 27 % (21-46); MONOCYTES ABSOLUTE AUTO 0.81 K/mm3 (0.16-1.47); MONOCYTES PERCENT AUTO 11 % (4-13); Mean Corpuscular HGB 25.2 pg (26.0-34.0); Mean Corpuscular HGB Conc 29.6 g/dL (31.5-36.5); Mean Corpuscular Volume 85 fL (80-100); Mean Platelet Volume 11.2 fL (9.1-12.4); NEUTROPHILS ABSOLUTE AUTO 4.24 K/mm3 (1.96-9.15); NEUTROPHILS PERCENT AUTO 58 % (41-73); Platelet Count 216 K/mm3 (150-400); RDW Coefficient Variation 15.9 % (11.7-14.2); RDW Standard Deviation 49.7 fL (35.1-46.3); Red Blood Cell Count 3.26 M/mm3 (3.80-5.20); White Blood Cell Count 7.27 K/mm3 (4.00-11.30)
[2024-03-27 04:09] VITALS: BP 147/62
--- NOTE | 2024-03-27 04:47 | NUR ---
0400: GAVE REPORT TO CHAU BOYCE ON MEDICAL FLOOR. PT TO BE TRANSFERRED TO ROOM 336. PT TRANSFERRED TO ROOM 336 BY W/C WITH ALL BELONGINGS AND PAPER CHART. PT REMAINED ON 3L O2 DURING TRANSPORT. PT REMAINED AOX4, COOPERATIVE AND PLEASANT.
[2024-03-27 05:08] LABS: Bun/Creatinine Ratio 35.6 (12.0-20.0); Calcium, Blood 8.3 mg/dL (8.5-10.1); Creatinine, Blood 1.88 mg/dL (0.40-1.00); Potassium, Blood 4.6 mmol/L (3.5-5.5)
--- NOTE | 2024-03-27 05:23 | NUR ---
Shift Summary Pt arrived from PCU as a transfer around 0400. No acute changes from report. Pt is on 3L O2 for the night, lungs clear except for slight wheeze on R side. No c/o of pain or nausea. She is 1 assist with the FWW. AOx4, pleasant and cooperative.
[2024-03-27 07:50] VITALS: BP 132/56
--- NOTE | 2024-03-27 13:50 | NUR ---
PLEASANT TO CARE, FAMILY MEMBERS VISITNG TODAY, CALL LIGHT WITH IN REACH
[2024-03-27 15:22] VITALS: BP 113/100
--- NOTE | 2024-03-27 17:57 | NUR ---
NO ACUTE CAHNGES, ALERT AND ORIENTED X4, CALL LIGHT WITH IN REACH, POSSIBLE DISCHARGE TOMORROW, DENIES PAIN, FAMILY VISITED TODAY, PLEASANT TO CARE, CALL LIGHT WITH IN REACH
[2024-03-27 19:59] VITALS: BP 96/59
[2024-03-28 02:05] VITALS: BP 150/57
--- NOTE | 2024-03-28 03:21 | NUR ---
SHIFT SUMMARY PT IS VERY PLEASANT, A&O X4, AND ABLE TO MAKE HER NEEDS KNOWN. PT DENIES PAIN AND DISCOMFORT. NO ACUTE EVENTS DURING THIS SHIFT. TELE: SINUS MIRI @58. O2 @ 3L, SAT'S> 97%. HS B. BP @HS 96/59, HELD SCHEDULED HYDRALAZINE PO. BED AT THE LOWEST POSITION, CALL LIGHT WITHIN REACH.
[2024-03-28 05:52] LABS: BASOPHILS ABSOLUTE AUTO 0.06 K/mm3 (0.00-0.23); BASOPHILS PERCENT AUTO 1 % (0-2); EOSINOPHILS ABSOLUTE AUTO 0.16 K/mm3 (0.00-0.68); EOSINOPHILS PERCENT AUTO 2 % (0-6); Hematocrit 27.1 % (33.0-51.0); IMMATURE GRAN ABSOLUTE AUTO 0.03 K/mm3 (0.00-0.10); IMMATURE GRAN PERCENT AUTO 0 % (0-1); LYMPHOCYTES ABSOLUTE AUTO 1.89 K/mm3 (0.84-5.20); LYMPHOCYTES PERCENT AUTO 25 % (21-46); MONOCYTES ABSOLUTE AUTO 0.73 K/mm3 (0.16-1.47); MONOCYTES PERCENT AUTO 10 % (4-13); Mean Corpuscular HGB 25.2 pg (26.0-34.0); Mean Corpuscular HGB Conc 29.5 g/dL (31.5-36.5); Mean Corpuscular Volume 86 fL (80-100); Mean Platelet Volume 11.3 fL (9.1-12.4); NEUTROPHILS ABSOLUTE AUTO 4.65 K/mm3 (1.96-9.15); NEUTROPHILS PERCENT AUTO 62 % (41-73); NRBC ABSOLUTE 0.02 K/mm3 (0.00-0.02); NRBC Auto 0.3 /100 WBC (0.0-0.2); Platelet Count 224 K/mm3 (150-400); RDW Coefficient Variation 15.9 % (11.7-14.2); Red Blood Cell Count 3.17 M/mm3 (3.80-5.20); White Blood Cell Count 7.52 K/mm3 (4.00-11.30)
[2024-03-28 06:04] LABS: Bun/Creatinine Ratio 37.2 (12.0-20.0); Calcium, Blood 8.5 mg/dL (8.5-10.1); Creatinine, Blood 2.07 mg/dL (0.40-1.00)
[2024-03-28 07:31] VITALS: BP 139/49
[2024-03-28] MEDS ORDERED: Gabapentin 300 MG Cap PO SCH (09:00)
[2024-03-28 09:14] VITALS: BP 150/60
[2024-03-28 14:31] VITALS: BP 132/52
--- NOTE | 2024-03-28 16:18 | NUR ---
SHIFT SUMMARY- PT ALERT, ORIENTED AND INDEPENDENT IN THE ROOM. PT CONTINENT OF BOWEL AND BLADDER. PT SUPPLY CHAIN COORDINATOR HAD SEVERAL LOOSE STOOLS TODAY, SHE STATES THIS IS WHAT HAPPENS WITH THE IV IRON. PT HAS HAD NO ACUTE CHANGES T/O THE SHIFT. PT HAD A FULL SHOWER TODAY. SHHE IS CURRENTLY IN BED, CALL LIGHT IN REACH NO S&S OF DISTRESS NOTED.
[2024-03-28 19:19] VITALS: BP 146/56
[2024-03-29 03:04] VITALS: BP 146/58
--- NOTE | 2024-03-29 03:18 | NUR ---
SHIFT SUMMARY NO ACUTE EVENTS DURING THIS SHIFT. HS B, TELE: SINUSBRADY@59.O2 @3L DURING THE NIGHT, SAT'S>92%. PT DENIES PAIN. BED AT THE LOWEST POSITION, CALL LIGHT WITHIN REACH. PT IS ABLE TO MAKE HER NEEDS KNOWN.
[2024-03-29 05:32] LABS: BASOPHILS ABSOLUTE AUTO 0.06 K/mm3 (0.00-0.23); BASOPHILS PERCENT AUTO 1 % (0-2); EOSINOPHILS ABSOLUTE AUTO 0.19 K/mm3 (0.00-0.68); EOSINOPHILS PERCENT AUTO 3 % (0-6); Hematocrit 28.1 % (33.0-51.0); Hemoglobin 8.1 g/dL (11.5-16.0); IMMATURE GRAN ABSOLUTE AUTO 0.02 K/mm3 (0.00-0.10); IMMATURE GRAN PERCENT AUTO 0 % (0-1); LYMPHOCYTES ABSOLUTE AUTO 2.07 K/mm3 (0.84-5.20); LYMPHOCYTES PERCENT AUTO 29 % (21-46); MONOCYTES ABSOLUTE AUTO 0.73 K/mm3 (0.16-1.47); MONOCYTES PERCENT AUTO 10 % (4-13); Mean Corpuscular HGB 24.8 pg (26.0-34.0); Mean Corpuscular HGB Conc 28.8 g/dL (31.5-36.5); Mean Corpuscular Volume 86 fL (80-100); Mean Platelet Volume 11.8 fL (9.1-12.4); NEUTROPHILS ABSOLUTE AUTO 4.07 K/mm3 (1.96-9.15); NEUTROPHILS PERCENT AUTO 57 % (41-73); NRBC ABSOLUTE 0.04 K/mm3 (0.00-0.02); NRBC Auto 0.6 /100 WBC (0.0-0.2); Platelet Count 211 K/mm3 (150-400); RDW Coefficient Variation 16.2 % (11.7-14.2); RDW Standard Deviation 50.8 fL (35.1-46.3); Red Blood Cell Count 3.27 M/mm3 (3.80-5.20); White Blood Cell Count 7.14 K/mm3 (4.00-11.30)
[2024-03-29 05:56] LABS: Bun/Creatinine Ratio 37.3 (12.0-20.0); Calcium, Blood 8.9 mg/dL (8.5-10.1); Creatinine, Blood 2.2 mg/dL (0.40-1.00); Potassium, Blood 4.8 mmol/L (3.5-5.5)
[2024-03-29 07:27] VITALS: BP 162/60
[2024-03-29 14:17] VITALS: BP 142/67
[2024-03-29 15:36] VITALS: BP 140/57
[2024-03-29] MEDS ORDERED: Darbepoetin Alfa In Albumn Sol 40 MCG/0.4 ML SC ONE (16:00)
--- NOTE | 2024-03-29 16:01 | NUR ---
SHIFT SUMMARY- PT CREATININE WENT UP TODAY, DR WHEELER CONSULTED WITH DR CREWS. MARS ORDERED LASIX AND METOLAZONE, LASIX WILL START TONIGHT. THE PT IS NOW ON A FLUID RESTRICTION AND SHE HAS AN ORDER FOR A 24 HOUR URINE. PT HAS REMAINED INDEPENDENT IN THE ROOM, SHE SHOWERED YESTERDAY. IV ACCESS WAS LOST TODAY, NEW IV ACCESS ESTABLISHED. PT IS CURRENTLY IN BED, CALL LIGHT IN REACH NO S&S OF DISTRESS NOTED AT THIS TIME. WILL PASS ON TO NIGHT RN IN BEDSIDE REPORT.
[2024-03-29] MEDS ORDERED: Metolazone 5 MG Tab PO SCH (18:00)
[2024-03-29] MEDS ORDERED: Furosemide 10 MG/ML 4ML Vial IV SCH (18:00)
[2024-03-29 18:02] VITALS: BP 144/50
[2024-03-29 19:02] VITALS: BP 145/54
[2024-03-30 03:06] VITALS: BP 136/57
[2024-03-30 05:33] LABS: Hemoglobin 7.7 g/dL (11.5-16.0)
[2024-03-30 06:01] LABS: Albumin, Blood 1.9 g/dL (3.4-5.0); Anion Gap 10 mmol/L (3-11); Blood Urea Nitrogen 84 mg/dL (8-24); Bun/Creatinine Ratio 39.4 (12.0-20.0); CO2, Blood 24 mmol/L (21-32); Calcium, Blood 8.5 mg/dL (8.5-10.1); Chloride, Blood 110 mmol/L (98-108); Creatinine, Blood 2.13 mg/dL (0.40-1.00); Glomerular Filtration Rate 25 (60-); Glucose, Blood 167 mg/dL (70-99); Magnesium, Blood 2.6 mg/dL (1.6-2.4); Phosphorus, Blood 5.8 mg/dL (2.5-4.9); Potassium, Blood 4.9 mmol/L (3.5-5.5); Sodium, Blood 139 mmol/L (136-145)
--- NOTE | 2024-03-30 06:18 | NUR ---
Shift Summary 24 urine collection in progress. No dizzyness, 1 sba w/ fww to BR. No c/o of nausea or pain. 7.7 Hgb AM lab, down from 8.1. VSS, no acute changes.
[2024-03-30 08:04] VITALS: BP 159/60
[2024-03-30] MEDS ORDERED: HydrALAZINE HCl 25 MG Tab PO SCH (09:00)
[2024-03-30] MEDS ORDERED: Sacubitril/Valsartan 24 MG-26 MG Tab PO SCH (09:00)
[2024-03-30 13:39] VITALS: BP 145/50
[2024-03-30 14:59] VITALS: BP 145/59
[2024-03-30 15:55] VITALS: BP 131/59
--- NOTE | 2024-03-30 17:31 | NUR ---
PATIENT IS ALERT AND ORIENTED AND COOPERATIVE WITH CARE. ON 2L O2 VIA NC, WHICH IS HER BASELINE DURING THE DAY. SBA TO THE BATHROOM. FINISHING A 24 HR URINE THIS EVENING. THIGH HIGH JAN HOSE PLACED THIS SHIFT. PATIENT'S DAUGHTER VISITED THIS EVENING. WILL CONTINUE TO MONITOR
[2024-03-30 20:00] VITALS: BP 160/59
[2024-03-31 05:44] LABS: Hematocrit 27.5 % (33.0-51.0); Hemoglobin 7.9 g/dL (11.5-16.0)
--- NOTE | 2024-03-31 06:03 | NUR ---
Pt with significant phantom pain tonight, medicated with oxy and then trazadone latter. VS WNL, remains on O2 at 4L, 3L is BL. PO intake above average, wt. increased this am by several kg. Tele is NSR in 60's. BM x2, BG 241 with no coverage at HS. remains on 1500 fluid restriction. Pt wearing thigh high teds and requested them removed as they were hurting her thighs, elastic cutting into skin. 24 hr urine completed.
[2024-03-31 06:13] LABS: Anion Gap 10 mmol/L (3-11); Blood Urea Nitrogen 92 mg/dL (8-24); Bun/Creatinine Ratio 42.4 (12.0-20.0); CO2, Blood 25 mmol/L (21-32); Calcium, Blood 8.4 mg/dL (8.5-10.1); Chloride, Blood 111 mmol/L (98-108); Creatinine, Blood 2.17 mg/dL (0.40-1.00); Glomerular Filtration Rate 25 (60-); Glucose, Blood 192 mg/dL (70-99); Magnesium, Blood 2.5 mg/dL (1.6-2.4); Phosphorus, Blood 5.4 mg/dL (2.5-4.9); Potassium, Blood 4.8 mmol/L (3.5-5.5); Sodium, Blood 141 mmol/L (136-145)
[2024-03-31 06:36] VITALS: BP 116/80
[2024-03-31 07:34] VITALS: BP 129/54
[2024-03-31] MEDS ORDERED: Metolazone 5 MG Tab PO SCH (09:00)
[2024-03-31] MEDS ORDERED: Furosemide 10 MG/ML 4ML Vial IV SCH (09:00)
[2024-03-31 13:38] VITALS: BP 122/47
[2024-03-31 14:27] VITALS: BP 141/112
--- NOTE | 2024-03-31 16:38 | NUR ---
SHIFT SUMMARY PT IS A/OX4. SBA TO BSC. PT SLEPT THROUGHOUT MUCH OF THIS SHIFT. REMAINS ON 4L NC, SATS >92%. PT REMAINS ON 1500 FLUID RESTIRCTION. LASIX DOSAGE INCREASED THIS SHIFT. ON TELE RUNNING NORMAL SINUS RYTHYM/SINUS MIRI.
[2024-03-31 19:27] VITALS: BP 121/60
--- NOTE | 2024-04-01 05:04 | NUR ---
Pt slept well this shift. VS WNL, tele is afib in 80's. x1 5 beat run of vtach, asymptomatic. Pt has midline and remains intact, and used for lab draw. Pt denies pain. BG 242 and recieved 2 units of insulin. Up with assist, does not attempt to get OOB without assist. Potential d/c to [facility].
--- NOTE | 2024-04-01 05:09 | NUR ---
Pt VS WNL, remains on O2 at 4L, was off for a period of unknow time and O2 sat as low as 74%, Pt took off to go to BR, she forgot that her hose is long enough. Did not sleep well, denies pain, CBG 207 with no coverage. remains on 1500 fluid restriction. Edema is wors tonight, and I explained to her that she needs to get her legs up more.
[2024-04-01 05:34] LABS: Hematocrit 26.8 % (33.0-51.0); Hemoglobin 7.9 g/dL (11.5-16.0)
[2024-04-01 06:00] LABS: Anion Gap 10 mmol/L (3-11); Blood Urea Nitrogen 97 mg/dL (8-24); Bun/Creatinine Ratio 42.4 (12.0-20.0); CHOL/HDL RATIO 1.9; CO2, Blood 24 mmol/L (21-32); Calcium, Blood 8.2 mg/dL (8.5-10.1); Chloride, Blood 109 mmol/L (98-108); Cholesterol 126 mg/dL (50-200); Creatinine, Blood 2.29 mg/dL (0.40-1.00); Glomerular Filtration Rate 23 (60-); Glucose, Blood 174 mg/dL (70-99); HDL Cholesterol 65 mg/dL (>39); LDL/HDL RATIO 0.6; Low Density Lipoprotein Chol 40 mg/dL (0-110); Magnesium, Blood 2.4 mg/dL (1.6-2.4); Phosphorus, Blood 4.9 mg/dL (2.5-4.9); Potassium, Blood 4.8 mmol/L (3.5-5.5); Sodium, Blood 138 mmol/L (136-145); Triglycerides 103 mg/dL (30-160); Very Low Density Lipoprot Chol 21 mg/dL (6-32)
[2024-04-01 07:22] VITALS: BP 140/58
[2024-04-01] MEDS ORDERED: Albumin Human 50 ML IV SCH (09:00)
[2024-04-01] MEDS ORDERED: Bumetanide 0.25 MG/ML 4ML ViaL IV SCH (09:00)
--- NOTE | 2024-04-01 15:25 | NUR ---
SHIFT SUMMARY PT AOX4, COOPERATIVE, ABLE TO MAKE NEEDS KNOWN. PT AMBULATES TO BATHROOM USING WALKER VIA SBA. PT UTILIZES 2L O2 VIA NASAL CANNULA AT ALL TIMES. CONNECTED TO TELE. DOES EXPRESS GENERALIZED WEAKNESS WHEN AMBULATING DURING THE AFTERNOON. ON 1500CC FLUID RESTRICTION, PT IS FULLY AWARE AND SELF COMPLIANT. NO ACUTE EVENTS OCCURED DURING SHIFT. BED IN LOWEST POSITION, CALL LIGHT WITHIN REACH.
[2024-04-01 15:28] VITALS: BP 156/63
[2024-04-01 16:44] VITALS: BP 160/61
--- NOTE | 2024-04-01 17:38 | NUR ---
[id number]- PT ATTEMPTED TO TRANSFER TO BATHROOM, C/O OF SOB, RN TURNED O2 FROM 2L TO 4L, PT REPORTED NOT WORKING. OPTED TO USE COMMODE AND RN CALLED RT FOR BREATHING TREATMENT. WHEN FOLLOWED UP WITH PT, REPORTS BREATHING TREATMENT DID NOT HELP, RELAXING IN BED HELPED.
--- NOTE | 2024-04-01 17:43 | NUR ---
1745-PT SUCCESSFULLY TRANSFERRED TO [facility] WITHOUT SOB, STILL ON 2 LO2
[2024-04-01 19:40] VITALS: BP 152/53
[2024-04-02 03:17] VITALS: BP 118/55
[2024-04-02 06:13] LABS: Hematocrit 25.1 % (33.0-51.0); Hemoglobin 7.4 g/dL (11.5-16.0)
--- NOTE | 2024-04-02 06:36 | NUR ---
SHIFT SUMMARY: Pt is admitted for CHF and is a DNR. is alert and able to make needs known. ADLs have been SBA to 1 depending on how she was feeling. Denies pain or discomfort when asked. Telly reports sinus in the 70s with no events.
[2024-04-02 06:45] LABS: Albumin, Blood 2.2 g/dL (3.4-5.0); Anion Gap 10 mmol/L (3-11); Blood Urea Nitrogen 95 mg/dL (8-24); CO2, Blood 24 mmol/L (21-32); Calcium, Blood 8.4 mg/dL (8.5-10.1); Chloride, Blood 108 mmol/L (98-108); Creatinine, Blood 2.11 mg/dL (0.40-1.00); Glomerular Filtration Rate 26 (60-); Glucose, Blood 194 mg/dL (70-99); Magnesium, Blood 2.4 mg/dL (1.6-2.4); Phosphorus, Blood 3.8 mg/dL (2.5-4.9); Potassium, Blood 4.9 mmol/L (3.5-5.5); Sodium, Blood 137 mmol/L (136-145)
[2024-04-02 07:32] VITALS: BP 133/66
[2024-04-02 09:29] LABS: CORONAVIRUS COVID-19 AG Negative (NEGATIVE); INFLUENZA A AG Negative (NEGATIVE); INFLUENZA B AG Negative (NEGATIVE)
[2024-04-02 15:19] VITALS: BP 147/56
--- NOTE | 2024-04-02 17:44 | NUR ---
SHIFT SUMMARY PT AOX4, COOPERATIVE, ABLE TO MAKE NEEDS KNOWN. PT HAS BEEN AMBULATING TO BATHROOM ALL DAY FOR RELIEF. TOLERATING IV AND PO MEDS APPROPRIATELY. DOES NOT EXPRESS ANY PAIN. BED IN LOWEST POSITION, CALL LIGHT WITHIN REACH.
--- NOTE | 2024-04-02 18:33 | NUR ---
UPDATE CALLED HOSPITALIST ABOUT PT HAVING MULTIPLE LOOSE BM OVER THE COURSE OF AFTERNOON/EVENING. INFORMED THIS RN THEY WOULD ORDER MEDICATION TO HELP STOP DIARRHEA. NO ORDER PLACED YET.
[2024-04-02 19:10] VITALS: BP 111/67
[2024-04-02] MEDS ORDERED: Loperamide HCl 2 MG Cap PO ONE (21:20)
--- NOTE | 2024-04-03 04:05 | NUR ---
SHIFT SUMMARY ADMITTED FOR CHF EXACERBATION. DNR CODE. WE ARE DIURESING HER. 1500 ML FLUID RESTRICTION. TELEMETRY: NSR @ 66 BPM. SHE IS A&O X4. 1 ASSIST W/FWW - BRP. ADA DIET. ACHS CBG'S - LOW SS. DIARRHEA REPORTED AT SHIFT BEGINNING. ONE TIME ORDER FOR IMMODIUM GIVEN PER PATIENT'S REQUEST. I NOTE THAT STOOLS APPEAR TO NOT BE LIQUID NOW. 2 LPM O2 @ BASELINE. HX: DM2, LEFT TRANSMETARSAL AMPUTATION, CHF, AFIB, COPD. DR. CREWS IS RENAL CONSULT.
[2024-04-03 06:01] LABS: Hematocrit 25.7 % (33.0-51.0); Hemoglobin 7.5 g/dL (11.5-16.0)
[2024-04-03 06:30] LABS: Albumin, Blood 2.4 g/dL (3.4-5.0); Anion Gap 8 mmol/L (3-11); Blood Urea Nitrogen 92 mg/dL (8-24); Bun/Creatinine Ratio 47.7 (12.0-20.0); CO2, Blood 28 mmol/L (21-32); Calcium, Blood 8.7 mg/dL (8.5-10.1); Chloride, Blood 108 mmol/L (98-108); Creatinine, Blood 1.93 mg/dL (0.40-1.00); Glomerular Filtration Rate 28 (60-); Glucose, Blood 136 mg/dL (70-99); Magnesium, Blood 2.3 mg/dL (1.6-2.4); Phosphorus, Blood 4.4 mg/dL (2.5-4.9); Potassium, Blood 4.8 mmol/L (3.5-5.5); Sodium, Blood 139 mmol/L (136-145)
[2024-04-03 07:35] VITALS: BP 133/57
[2024-04-03] MEDS ORDERED: Insulin Human Lispro 100 Units/ML 3ML Syringe SC SCH (11:30)
[2024-04-03] MEDS ORDERED: XARELTO15 M1 PO (13:03)
[2024-04-03] MEDS ORDERED: ENTRESTO 24 MG1 EACH PO (13:06)
[2024-04-03] MEDS ORDERED: METO5 PO (13:06)
[2024-04-03] MEDS ORDERED: TRAZ50 PO (13:07)
== END 2024-04-03 15:30 | disposition hospice, home (50) | DRG 291 ==
LOC: ER 15:59 → PCU 20:13 → MEDS 20:13 → PCU 21:38 → MEDS 03-27 03:54 → ENPENDDIS 04-03 10:56 → MEDS 04-03 15:30
PROVIDERS: Family Medicine; Internal Medicine Nephrology; Physician Assistant; ADMIT Internal Medicine
PROC: 30233N1 Transfusion of Nonautologous Red Blood Cells into Peripheral Vein, Percutaneous Approach (ICD-10-PCS; principal; 2024-03-26)
DX: I13.0 Hypertensive heart and chronic kidney disease with heart failure and stage 1 through stage 4 chronic kidney disease, or unspecified chronic kidney disease (principal); I50.33 Acute on chronic diastolic (congestive) heart failure; J96.11 Chronic respiratory failure with hypoxia; N25.81 Secondary hyperparathyroidism of renal origin; Z66 Do not resuscitate; N17.9 Acute kidney failure, unspecified; N18.30 Chronic kidney disease, stage 3 unspecified; E11.51 Type 2 diabetes mellitus with diabetic peripheral angiopathy without gangrene; I48.0 Paroxysmal atrial fibrillation; E11.22 Type 2 diabetes mellitus with diabetic chronic kidney disease; E78.5 Hyperlipidemia, unspecified; F17.210 Nicotine dependence, cigarettes, uncomplicated; I49.1 Atrial premature depolarization; J06.9 Acute upper respiratory infection, unspecified; D63.1 Anemia in chronic kidney disease; E88.09 Other disorders of plasma-protein metabolism, not elsewhere classified; Z79.899 Other long term (current) drug therapy; Z79.02 Long term (current) use of antithrombotics/antiplatelets; Z79.4 Long term (current) use of insulin; Z79.51 Long term (current) use of inhaled steroids; Z79.891 Long term (current) use of opiate analgesic; Z91.030 Bee allergy status; Z88.5 Allergy status to narcotic agent; Z91.018 Allergy to other foods; Z88.0 Allergy status to penicillin; Z88.8 Allergy status to other drugs, medicaments and biological substances; Z79.01 Long term (current) use of anticoagulants; Z98.890 Other specified postprocedural states; Z87.19 Personal history of other diseases of the digestive system; Z90.49 Acquired absence of other specified parts of digestive tract; Z95.828 Presence of other vascular implants and grafts
CPT/HCPCS: 36415; 36430; 71046; 76770; 80048; 80053; 80061; 80069; 82607; 82728; 82746; 82947; 83540; 83550; 83735; 83880; 84156; 84484; 85014; 85018; 85025; 86850; 86900; 86901; 86923; 87428-QW; 93005; 93010; 93971; 94640; 94664; 94760; 94761; 94762; 97162; 97165; 97530; 97535; 99285-25; A9270; J0881; J1815; J1940; J2916; J7040; P9016; P9047